=== PATIENT | male | born 1945 | race Caucasian/White ===

== ENCOUNTER 2018-07-04 14:26 | Inpatient (IN) ==
[~2018-07-04 14:26] MED LIST: *HR* Etomidate 20 MG/10 ML AMPUL IVP ONE; *HR* Rocuronium Bromide 100 MG/10 ML VIAL IVC ONE
[2018-07-04] MEDS ORDERED: 0.9 % Sodium Chloride 1,000 ML IVC ONE (14:31)
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
[2018-07-04 15:06] LABS: Basophils % 0.3 %; Eosinophils # 0.1 K/mcL (0.0-0.6); Eosinophils % 0.9 %; Hematocrit 44.5 % (37.5-50.1); Hemoglobin 13.5 g/dL (12.9-16.9); Immature Granulocytes % 0.9 % (0-4); Lymphocytes # 5.8 K/mcL (0.6-4.6); Lymphocytes % 50.8 %; Mean Corpuscular HGB Conc 30.3 g/dL (31.6-35.5); Mean Corpuscular Hemoglobin 28.2 pg (28.0-33.3); Mean Corpuscular Volume 93.1 fL (83.0-100.0); Mean Platelet Volume 9.9 fL (9.4-12.4); Monocytes # 0.9 K/mcL (0.0-1.3); Monocytes % 7.7 %; Neutrophils # 4.5 K/mcL (1.6-8.9); Nucleated Red Blood Cells 0.2 /100 WBC (0); Platelet Count 280 K/mcL (140-400); Red Blood Count 4.78 M/mcL (4.19-5.50); Red Cell Distribution Width 15.1 % (11.5-14.5); Segmented Neutrophils % 39.4 %
[2018-07-04 15:14] LABS: INR 1.1; Prothrombin Time 12.7 Seconds (9.4-12.1)
[2018-07-04 15:16] LABS: Activated Partial Thrombo Time 35.9 Seconds (26.0-36.0)
[2018-07-04] MEDS ORDERED: Isovue-370 500 ML INFUS..BTL IV ONE (15:23)
[2018-07-04 15:28] LABS: Acetaminophen < 10 mcg/mL (10-20); Alanine Aminotransferase 22 Units/L (7-52); Albumin 4.3 g/dL (3.5-5.7); Albumin/Globulin Ratio 1.6 (1.1-2.2); Alkaline Phosphatase 124 Units/L (34-104); Aspartate Amino Transferase 26 Units/L (13-39); BUN/Creatinine Ratio 15 (6-26); Bilirubin,Direct 0.1 mg/dL (0.0-0.2); Bilirubin,Indirect 0.4 mg/dL (0.0-1.2); Bilirubin,Total 0.5 mg/dL (0.3-1.0); Blood Urea Nitrogen 17 mg/dL (8-23); Calcium 6.9 mg/dL (8.6-10.3); Carbon Dioxide 17 mEq/L (23-29); Chloride 99 mEq/L (98-107); Creatine Kinase 161 Units/L (30-223); Ethanol 11 mg/dL (Less than 10); Globulin 2.7 g/dL (2.4-3.5); Glucose 176 mg/dL (70-105); Osmolality,Calculated 300 (280-300); Potassium 3.4 mEq/L (3.5-5.1); Salicylate < 2.5 mg/dL (15.0-30.0); Sodium 142 mEq/L (136-145); Troponin I < 0.03 ng/mL (< 0.04); eGFR For Non-African Americans 57 (> 60)
[2018-07-04] MEDS ORDERED: Lactulose Oral Soln 20 GM/30 ML UDC GTUBE ONE (15:38)
[2018-07-04 15:47] LABS: ABG Base Excess -4 mEq/L (-2 to 3); ABG HCO3 22 mEq/L (21-27); ABG Oxygen Saturation 100 % (95-98); ABG PCO2 42 mmHg (35-45); ABG PH 7.32 pH Units (7.32-7.45); ABG PO2 354 mmHg (85-104); ABG TCO2 23 mEq/L (20-26)
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
[2018-07-04] MEDS ORDERED: Nitroglycerin 1,000 MCG/10 ML VIAL IV ONE (16:07)
[2018-07-04] MEDS ORDERED: ISOVUE-370 200 ML INFUS..BTL IV ONE ×2 (16:07→17:05)
[2018-07-04] MEDS ORDERED: 0.9 % Sodium Chloride 1,000 ML ONE ×2 (16:07→16:32)
[2018-07-04] MEDS ORDERED: *HR* Heparin 10,000 UNIT/10 ML VIAL ONE (16:07)
[2018-07-04] MEDS ORDERED: Heparin 1,000 UNITS/500 mL 500 ML ONE (16:07)
[2018-07-04 16:09] LABS: Thyroid Stimulating Hormone < 0.010 mcIU/mL (0.340-5.600)
--- NOTE | 2018-07-04 16:13 | Pre-Sedation Evaluation ---
Pre-sedation evaluation - Pre-sedation checklist Date of procedure: 07/04/18 Procedure: LHC Recent Vitals: Last Vital Signs Temp 0 F L 07/04/18 14:36 Pulse 110 07/04/18 15:22 Resp 18 07/04/18 15:22 BP 149/91 07/04/18 15:22 Pulse Ox 99 07/04/18 15:22 ASA Classification *see protocol: CLASS II-Mild systemic disease Cardiac Registry (Cardio Only) - Functional Capacity Functional Capacity: Unknown - Clincal Frailty Scale Clinical Frailty Scale: Very Severely Frail
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
[2018-07-04] MEDS ORDERED: *HR* Heparin 5,000 UNIT/ML VIAL IVP ONE (16:28)
[2018-07-04] MEDS ORDERED: *HR* Heparin 5,000 UNIT/ML VIAL IVP PRN ×2 (16:28)
[2018-07-04] MEDS ORDERED: Heparin 25,000 UNIT/500 ML D5W 25,000 UNIT/500 ML BAG IVC SCH (16:30)
[2018-07-04] MEDS ORDERED: *HR* Midazolam HCl 2 MG/2 ML VIAL ONE (16:46)
[2018-07-04] MEDS ORDERED: *HR* FentaNYL (PF) 100 MCG/2 ML VIAL ONE (16:47)
[2018-07-04] MEDS ORDERED: Tirofiban 12.5 MG/250ML 12.5 MG/250 ML BAG ONE (17:03)
--- NOTE | 2018-07-04 17:33 | Procedure Note ---
Date of procedure: 07/04/18 Pre-op diagnosis: unresponsive Post-op diagnosis: same Procedure: Right Femoral CVC placement: Physician: Wiliam Indication: Acute respiratory failure, unresponsiveness, and need for emergency venous access Consent: Implied as this was an emergency procedure in the ER I placed a right femoral CVC emergently on this patient as he was being resuscitated by the emergency room staff. I used an Arrows 20 cm triple-lumen catheter kit. Sterile technique was not performed as this was an emergency and we had no venous access. I used a large-bore needle and syringe with 1% lidocaine. I numbed him up quickly and then successfully aspirated and cannulated the femoral vein on the first attempt. I threaded the guidewire through the needle and then removed the needle intact. I then threaded the catheter over guidewire and then removed over the guidewire intact. All 3 ports were successfully aspirated of blood and flushed with normal saline. I sutured the catheter in place and we then used it for resuscitation. Once patient was clinically stabilized, he was transferred to ICU. I conveyed to the intensive care unit staff that this was a non-sterile line and that it should be replaced as soon as possible. Blood loss was minimal and patient tolerated procedure well. Anesthesia: local Surgeon: Andrés Swain Was there an drug safety assistant present: No Estimated blood loss (cc): 5 Specimen: none Pathology: none sent Condition: critical Disposition: ICU
[2018-07-04] MEDS ORDERED: Tirofiban 12.5 MG/250ML 12.5 MG/250 ML BAG IVC SCH ×2 (17:45→20:15)
[2018-07-04] MEDS ORDERED: 0.9 % Sodium Chloride 500 ML ONE (17:57)
[2018-07-04] MEDS ORDERED: *HR* Atropine Sulfate 1 MG/10 ML SYRINGE ONE (17:57)
--- NOTE | 2018-07-04 17:57 | Emergency Department Note ---
Disposition Clinical Impression: Unresponsive, Apnea Disposition: Admitted As Inpatient Condition: Fair General Adult HPI - General Stated complaint: Unresponsive Time Seen by Provider: 07/04/18 14:31 - Related Data Home Medications Medication Instructions Recorded Confirmed Donepezil [Aricept] 10 mg PO HS 05/23/18 05/23/18 Omeprazole [PriLOSEC] 20 mg PO DAILY 05/23/18 05/23/18 Albuterol Neb [Proventil Neb] 2.5 mg IH TID 07/04/18 07/04/18 Albuterol Sulfate [Ventolin Hfa] 2 puff IH Q6H PRN 07/04/18 07/04/18 Aspirin [Adult Aspirin] 81 mg PO DAILY 07/04/18 07/04/18 Finasteride [Proscar] 5 mg PO DAILY 07/04/18 07/04/18 Fluticasone/Vilanterol [Breo 1 puff IH DAILY 07/04/18 07/04/18 Ellipta 200-25 Mcg INH] Levothyroxine [Synthroid] 175 mcg PO DAILY 07/04/18 07/04/18 Multivit-Min/FA/Lycopen/Lutein 1 tab PO DAILY 07/04/18 07/04/18 [Centrum Silver Men Tablet] Tizanidine HCl 2 mg PO TID 07/04/18 07/04/18 Previous Rx's Medication Instructions Recorded LevETIRAcetam [Keppra] 1,000 mg PO BID #60 tablet 05/24/18 Atorvastatin [Lipitor] 40 mg PO HS #30 tablet 07/10/18 Clindamycin [Cleocin] 450 mg PO TIDWM #3 capsule 07/10/18 Clopidogrel [Plavix] 75 mg PO DAILY #30 tablet 07/10/18 Lisinopril [Zestril] 2.5 mg PO DAILY #15 tablet 07/10/18 Metoprolol XL (24 HR) Succ [Toprol 12.5 mg PO DAILY #30 tab.er.24h 07/10/18 Xl] Allergies Allergy/AdvReac Type Severity Reaction Status Date / Time Penicillins [PCN] Allergy Gastrointestinal Verified 07/05/18 09:40 Upset Course Vital Signs Temperature 0 F L 07/04/18 14:36 Pulse Rate 109 07/04/18 14:36 Respiratory Rate 14 07/04/18 14:36 Blood Pressure 112/72 07/04/18 14:36 O2 Sat by Pulse Oximetry 99 07/04/18 14:36 Temperature 98.4 F 07/10/18 16:50 Pulse Rate 54 07/10/18 16:50 Respiratory Rate 15 07/10/18 16:50 Blood Pressure 128/68 07/10/18 16:50 O2 Sat by Pulse Oximetry 98 07/10/18 16:50 Oxygen Delivery Oxygen Delivery Ventilator Medical Decision Making - Lab Data Result diagrams: 07/10/18 03:42 07/10/18 03:42 Lab Results 07/04/18 07/04/18 07/04/18 Range/Units 14:31 14:31 14:34 WBC (4.3-11.1) K/mcL RBC (4.19-5.50) M/mcL Hgb (12.9-16.9) g/dL Hct (37.5-50.1) % MCV (83.0-100.0) fL MCH (28.0-33.3) pg MCHC (31.6-35.5) g/dL RDW (11.5-14.5) % Plt Count (140-400) K/mcL MPV (9.4-12.4) fL Immature Gran % (0-4) % Seg Neutrophils % % Lymphocytes % % Monocytes % % Eosinophils % % Basophils % % Neutrophils # (1.6-8.9) K/mcL Lymphocytes # (0.6-4.6) K/mcL Monocytes # (0.0-1.3) K/mcL Eosinophils # (0.0-0.6) K/mcL Basophils # (0.0-0.2) K/mcL Nucleated RBCs/100 WBC (0) /100 WBC PT 12.7 H (9.4-12.1) Seconds INR 1.1 APTT 35.9 (26.0-36.0) Seconds ABG pH (7.32-7.45) pH Units ABG pCO2 (35-45) mmHg ABG pO2 (85-104) mmHg ABG HCO3 (21-27) mEq/L ABG Total CO2 (20-26) mEq/L ABG O2 Saturation (95-98) % ABG Base Excess (-2 to 3) mEq/L Carboxyhemoglobin 5.0 (0-5) % Sodium (136-145) mEq/L Potassium (3.5-5.1) mEq/L Chloride (98-107) mEq/L Carbon Dioxide (23-29) mEq/L BUN (8-23) mg/dL Creatinine (0.70-1.30) mg/dL Est GFR ( Amer) (> 60) Est GFR (Non-Af Amer) (> 60) BUN/Creatinine Ratio (6-26) Glucose (70-105) mg/dL Calculated Osmolality (280-300) Calcium (8.6-10.3) mg/dL Total Bilirubin (0.3-1.0) mg/dL Direct Bilirubin (0.0-0.2) mg/dL Indirect Bilirubin (0.0-1.2) mg/dL AST (13-39) Units/L ALT (7-52) Units/L Alkaline Phosphatase (34-104) Units/L Ammonia (16-53) mcmol/L Creatine Kinase (30-223) Units/L Troponin I (< 0.04) ng/mL Serum Total Protein (6.4-8.9) g/dL Albumin (3.5-5.7) g/dL Globulin (2.4-3.5) g/dL Albumin/Globulin Ratio (1.1-2.2) TSH (0.340-5.600) mcIU/mL Salicylates (15.0-30.0) mg/dL Urine Opiates Screen Negative (Vjbizu=401) ng/mL Acetaminophen (10-20) mcg/mL Ur Barbiturates Screen Negative (Ggtbiu=719) ng/mL Ur Phencyclidine Scrn Negative (Cutoff=25) ng/mL Ur Amphetamines Screen Negative (Xebxby=0632) ng/mL U Benzodiazepines Scrn Positive H (Wkjfin=155) ng/mL Urine Cocaine Screen Negative (Cutoff= 300) ng/mL U Marijuana (THC) Screen Negative (Cutoff = 50) ng/mL Ur Drug Screen Interp See Below Ethyl Alcohol (Less than 10) mg/dL 07/04/18 07/04/18 07/04/18 Range/Units 14:34 14:34 14:39 WBC 11.5 H (4.3-11.1) K/mcL RBC 4.78 (4.19-5.50) M/mcL Hgb 13.5 (12.9-16.9) g/dL Hct 44.5 (37.5-50.1) % MCV 93.1 (83.0-100.0) fL MCH 28.2 (28.0-33.3) pg MCHC 30.3 L (31.6-35.5) g/dL RDW 15.1 H (11.5-14.5) % Plt Count 280 (140-400) K/mcL MPV 9.9 (9.4-12.4) fL Immature Gran % 0.9 (0-4) % Seg Neutrophils % 39.4 % Lymphocytes % 50.8 % Monocytes % 7.7 % Eosinophils % 0.9 % Basophils % 0.3 % Neutrophils # 4.5 (1.6-8.9) K/mcL Lymphocytes # 5.8 H (0.6-4.6) K/mcL Monocytes # 0.9 (0.0-1.3) K/mcL Eosinophils # 0.1 (0.0-0.6) K/mcL Basophils # 0.0 (0.0-0.2) K/mcL Nucleated RBCs/100 WBC 0.2 H (0) /100 WBC PT (9.4-12.1) Seconds INR APTT (26.0-36.0) Seconds ABG pH (7.32-7.45) pH Units ABG pCO2 (35-45) mmHg ABG pO2 (85-104) mmHg ABG HCO3 (21-27) mEq/L ABG Total CO2 (20-26) mEq/L ABG O2 Saturation (95-98) % ABG Base Excess (-2 to 3) mEq/L Carboxyhemoglobin (0-5) % Sodium 142 (136-145) mEq/L Potassium 3.4 L (3.5-5.1) mEq/L Chloride 99 (98-107) mEq/L Carbon Dioxide 17 L (23-29) mEq/L BUN 17 (8-23) mg/dL Creatinine 1.15 (0.70-1.30) mg/dL Est GFR ( Amer) > 60 (> 60) Est GFR (Non-Af Amer) 57 L (> 60) BUN/Creatinine Ratio 15 (6-26) Glucose 176 H (70-105) mg/dL Calculated Osmolality 300 (280-300) Calcium 6.9 L (8.6-10.3) mg/dL Total Bilirubin 0.5 (0.3-1.0) mg/dL Direct Bilirubin 0.1 (0.0-0.2) mg/dL Indirect Bilirubin 0.4 (0.0-1.2) mg/dL AST 26 (13-39) Units/L ALT 22 (7-52) Units/L Alkaline Phosphatase 124 H (34-104) Units/L Ammonia 290 H (16-53) mcmol/L Creatine Kinase 161 (30-223) Units/L Troponin I < 0.03 (< 0.04) ng/mL Serum Total Protein 7.0 (6.4-8.9) g/dL Albumin 4.3 (3.5-5.7) g/dL Globulin 2.7 (2.4-3.5) g/dL Albumin/Globulin Ratio 1.6 (1.1-2.2) TSH < 0.010 L (0.340-5.600) mcIU/mL Salicylates < 2.5 L (15.0-30.0) mg/dL Urine Opiates Screen (Nhotpu=176) ng/mL Acetaminophen < 10 L (10-20) mcg/mL Ur Barbiturates Screen (Tzwemo=947) ng/mL Ur Phencyclidine Scrn (Cutoff=25) ng/mL Ur Amphetamines Screen (Htkeqz=8065) ng/mL U Benzodiazepines Scrn (Izihuc=481) ng/mL Urine Cocaine Screen (Cutoff= 300) ng/mL U Marijuana (THC) Screen (Cutoff = 50) ng/mL Ur Drug Screen Interp Ethyl Alcohol 11 H (Less than 10) mg/dL 07/04/18 Range/Units 15:40 WBC (4.3-11.1) K/mcL RBC (4.19-5.50) M/mcL Hgb (12.9-16.9) g/dL Hct (37.5-50.1) % MCV (83.0-100.0) fL MCH (28.0-33.3) pg MCHC (31.6-35.5) g/dL RDW (11.5-14.5) % Plt Count (140-400) K/mcL MPV (9.4-12.4) fL Immature Gran % (0-4) % Seg Neutrophils % % Lymphocytes % % Monocytes % % Eosinophils % % Basophils % % Neutrophils # (1.6-8.9) K/mcL Lymphocytes # (0.6-4.6) K/mcL Monocytes # (0.0-1.3) K/mcL Eosinophils # (0.0-0.6) K/mcL Basophils # (0.0-0.2) K/mcL Nucleated RBCs/100 WBC (0) /100 WBC PT (9.4-12.1) Seconds INR APTT (26.0-36.0) Seconds ABG pH 7.32 (7.32-7.45) pH Units ABG pCO2 42 (35-45) mmHg ABG pO2 354 H (85-104) mmHg ABG HCO3 22 (21-27) mEq/L ABG Total CO2 23 (20-26) mEq/L ABG O2 Saturation 100 H (95-98) % ABG Base Excess -4 L (-2 to 3) mEq/L Carboxyhemoglobin (0-5) % Sodium (136-145) mEq/L Potassium (3.5-5.1) mEq/L Chloride (98-107) mEq/L Carbon Dioxide (23-29) mEq/L BUN (8-23) mg/dL Creatinine (0.70-1.30) mg/dL Est GFR ( Amer) (> 60) Est GFR (Non-Af Amer) (> 60) BUN/Creatinine Ratio (6-26) Glucose (70-105) mg/dL Calculated Osmolality (280-300) Calcium (8.6-10.3) mg/dL Total Bilirubin (0.3-1.0) mg/dL Direct Bilirubin (0.0-0.2) mg/dL Indirect Bilirubin (0.0-1.2) mg/dL AST (13-39) Units/L ALT (7-52) Units/L Alkaline Phosphatase (34-104) Units/L Ammonia (16-53) mcmol/L Creatine Kinase (30-223) Units/L Troponin I (< 0.04) ng/mL Serum Total Protein (6.4-8.9) g/dL Albumin (3.5-5.7) g/dL Globulin (2.4-3.5) g/dL Albumin/Globulin Ratio (1.1-2.2) TSH (0.340-5.600) mcIU/mL Salicylates (15.0-30.0) mg/dL Urine Opiates Screen (Jozoqt=267) ng/mL Acetaminophen (10-20) mcg/mL Ur Barbiturates Screen (Shnsur=261) ng/mL Ur Phencyclidine Scrn (Cutoff=25) ng/mL Ur Amphetamines Screen (Ybywxe=2742) ng/mL U Benzodiazepines Scrn (Vmxozq=673) ng/mL Urine Cocaine Screen (Cutoff= 300) ng/mL U Marijuana (THC) Screen (Cutoff = 50) ng/mL Ur Drug Screen Interp Ethyl Alcohol (Less than 10) mg/dL Attestation Statement - Attestation Attestation: I examined this patient and my medical decision-making was reviewed with the Resident Physician. I agree with the documented findings, disposition and treatment plan as described except to the extent set forth below. Findings consistent with acute respiratory failure accompanied with altered mental status as well as encephalopathy. Patient did require emergent intubation on arrival for respiratory failure. An emergent femoral line was placed in the right groin. The patient was hypertensive, sedated with propofol. He was found have significant ST segment depressions on EKG and ultimately interventional cardiology was notified. It does not appear that he is having a STEMI at this time however given the altered mental status, acute onset of collapse, EKG changes we will proceed with cardiac catheterization. The patient will undergo CT scan of the chest rule out pulmonary embolism. He is sedated, hemodynamically stable at the time of transfer to the intensive care unit. I spent greater than 35 minutes of critical care time resuscitating this acutely ill patient suffering from respiratory failure this was excluding billable procedures.
--- NOTE | 2018-07-04 18:19 | Invasive Diagnostic Lab Proc ---
Name: Marvin David Date of Study: 07/04/2018 Date: 1945 Ht: 66.1in Medical Record#: [id number] Age: 73 Wt: 110.23lb Gender: Male BSA: 1.56 Order #: [id number] BMI: 17.72 Physicians Procedure Physician: Lolis Brooks MD Referring MD: Referring MD: Staff Name Position Time In Ghislaine Colunga RN Monitor 04:20 PM Amy Wakefield RT (R) Scrub 04:35 PM Tisha Cohen RN Director Process 04:35 PM Shruthi Nicholas RN Director Process 04:35 PM Indications Indication Unstable Angina Procedures Performed Procedure L HRT ARTERY/VENTRICLE ANGIO Pre-Procedure Checklist Informed consent is complete signed and on chart. H&P is on chart. ID band is on and ID verified with patient. Patient NPO for procedure The procedure was described for the patient and questions were answered. Blood Pressure: 147/103 ECG is on chart. Rhythm: Sr w/ st depression Plan of Care Patient will tolerate the procedure without complications. Adequate level of comfort will be maintained. Hemodynamics will remain stable Patient will recover from procedure without complications. Respiratory function will be maintained. Cardiac rhythm will remain stable. Patient temperature will be maintained. Patient and/or family have verbalized understanding of the procedure. Patient Education Chief Complaint/Reason for Test: Cardiac Cath Developmental Category: Geriatric (65+ years) Developmentally Appropriate for Age: No Learning Barriers: Sedated Education Needs: Procedure Education Method: Verbal Information Taught: Cardiac Cath Educational Evaluation: Not ready to learn Note: pt intubated Intravenous Access Time IV Size Location DC'd Fluid/Drip Rate Units RN 04:21 PM Central Line Rt Femoral 0.9NaCl 25 ml/hr Ghislaine Colunga RN Allergies PCN (VOMMITTING, RASH) Penicillin PCN Penicillins Vital Signs Time BP (mmHg) HR (bpm) O2 Sat. RR (bpm) LOC 04:29 PM / % 2 = Responds to voice 04:30 PM / % 2 = Responds to voice 04:45 PM / % 4 = Oriented but drowsy 05:00 PM / % 4 = Oriented but drowsy 04:27 PM 147 / 103 98 % 19 04:32 PM 125 / 64 69 99 % 14 04:37 PM 132 / 73 58 99 % 15 04:42 PM 135 / 74 67 99 % 16 04:47 PM 121 / 67 59 98 % 13 04:51 PM 92 / 45 60 99 % 16 04:53 PM 110 / 58 59 100 % 16 04:57 PM 113 / 66 67 100 % 16 05:02 PM 125 / 62 61 100 % 15 05:07 PM 131 / 73 60 100 % 15 05:12 PM 131 / 76 68 100 % 15 05:17 PM 125 / 63 62 100 % 15 05:22 PM 130 / 76 48 100 % 15 05:27 PM 132 / 77 57 100 % 16 05:34 PM 133 / 77 80 99 % 14 05:37 PM 103 / 67 67 100 % 19 Procedural Medications Time Medication Dose Units Method Given By 04:29 PM Oxygen L/min mechanical ventilator Respiratory 04:31 PM Propofol 20 mcg/kg/min Intravenous 04:45 PM Versed 1 mg Intravenous Tisha Cohen RN 04:45 PM Fentanyl 50 mcg Intravenous Tisha Cohen RN 04:50 PM Lidocaine 2% 10 ml Subcutaneous Lolis Brooks MD 05:02 PM Heparin 3000 units Intravenous Tisha Cohen RN 05:15 PM Nitroglycerin 25 mcg Intracoronary Hollie Brooks MD 05:24 PM Nitroglycerin 100 mcg Intracoronary Hollie Brooks MD 05:33 PM Versed 1 mg Intravenous Tisha Cohen RN 05:33 PM Fentanyl 50 mcg Intravenous Tisha Cohen RN 05:35 PM Plavix 600 mg Orally Tisha Cohen RN 05:00 PM Aggrastat Bolus: 25 ml Intravenous Tisha Cohen RN 05:47 PM Aggrastat 12.5mg/250ml 9 ml/hr Intravenous Tisha Cohen RN ASA Classification: CLASS II- Mild systemic disease (i.e. well-controlled diabetes, hypertension, asthma, cigarette smoking) Keith Score Preprocedure Postprocedure Activity 2- Moves 4 extremities sustained head lift Activity 2- Moves 4 extremities sustained head lift Circulation 2- SBP +/= 20 points of pre-anesthetic level Circulation 2- SBP +/= 20 points of pre-anesthetic level Consciousness 1- Responds to verbal stimuli drowsy Consciousness 1- Responds to verbal stimuli drowsy O2 Saturation 1- Needs O2 inhalation to maintain O2 saturation of 90% O2 Saturation 1- Needs O2 inhalation to maintain O2 saturation of 90% Respiratory 1- Labored or limited respiration requires airway Respiratory 1- Labored or limited respiration requires airway Total Score 7 Total Score 7 Contrast Agent: Isovue Diagnostic Contrast: 118 ml Total Contrast: 118 ml Fluoro Dose: 5374 mGy Procedure Log Time Note Enter By 04:20 PM Pt arrived to label maker 2 at 16:20 [email or web address] 04:20 PM Ghislaine Colunga RN Position: Monitor Time in: 16:20 [email or web address] 04:20 PM Patient charges- Angio tray pack, Navilyst 3mm J, Pulse Oximetry and ACIST tubing and transducer [email or web address] 04:20 PM Case Delayed no, inpatient [email or web address] 04:27 PM Vitals capture started with the following parameters, Patient=Adult, Interval=5 min, Initial Yhkadrss=833 mmHg, Deflation Rate=5 mmHg, Cuff placed on Right Arm 04:27 PM Recorded ECG: KR=340 Condition=Condition 1 04:27 PM HR=98 bpm, INWB=052/103 mmhg, Resp=19 B/min 04:29 PM Physician arrived 16:29 [email or web address] 04:29 PM Meet and gremain completed [email or web address] 04:29 PM Sign in performed according to hospital policy. [email or web address] 04:29 PM Procedure start 16:29 [email or web address] 04:29 PM Time: 16:29 Oxygen on at L/min per mechanical ventilator by Walter kaplan Respiratory [email or web address] 04:29 PM Time: 16:29 Patient comfortable and pain free: Yes [email or web address] 04:30 PM Time: 16:29LOC: 2 = Responds to voice [email or web address] 04:31 PM patient's heart rate dropped from 100 to 38, hr did return to 60s on its own scoates 04:31 PM Recorded Pressure: HR=65, Condition=Condition 1 04:31 PM Recorded Pressure: HR=58, Condition=Condition 1 04:31 PM Recorded Pressure: HR=53, Condition=Condition 1 04:31 PM Recorded Pressure: HR=39, Condition=Condition 1 04:31 PM Patient arrived at 16:31 with Propofol Intravenous drip @ 20 mcg/kg/min [email or web address] 04:32 PM HR=69 bpm, TVNQ=689/64 mmhg, SpO2=99.0 %, Resp=14 B/min 04:33 PM Recorded ECG: HR=58 Condition=Condition 1 04:34 PM Clinical Presentation: Unstable angina [email or web address] 04:35 PM Sites, Amy RT (R) Position: Scrub Time in: 16:35 [email or web address] 04:35 PM Tisha Cohen RN Position: Director Process Time in: 16:35 [email or web address] 04:35 PM Shruthi Nicholas RN Position: Director Process Time in: 16:35 [email or web address] 04:37 PM HR=58 bpm, VIBM=955/73 mmhg, SpO2=99.0 %, Resp=15 B/min 04:39 PM Hair removed from procedure site in procedure lab using clippers. Bilateral groin prepped with Chloraprep by Shruthi Nicholas RN, then patient was draped. Skin intact. scoates 04:42 PM HR=67 bpm, WKIY=944/74 mmhg, SpO2=99.0 %, Resp=16 B/min 04:44 PM Pressure channel 1 zeroed. 04:44 PM Time: 16:29 Patient comfortable and pain free: Yes scoates 04:45 PM Time: 16:30LOC: 2 = Responds to voice scoates 04:45 PM Time out performed according to hospital policy scoates 04:45 PM Time: 16:45 Versed 1 mg Intravenous Given by Tisha Cohen RN scoates 04:45 PM Time: 16:45 Fentanyl 50 mcg Intravenous Given by Tisha Cohen RN scoates 04:47 PM HR=59 bpm, HABB=081/67 mmhg, SpO2=98.0 %, Resp=13 B/min, Comment=sr w/ st depression 04:50 PM Time: 16:50 10 ml Lidocaine 2% to left groin Subcutaneous Given by Lolis Brooks MD scoates 04:50 PM Micro-Introducer Kit utilized for sheath placement scoates 04:51 PM Access obtained by percutaneous puncture. 5Fr 11cm Cordis Mariposa sheath placed in left Femoral artery. [id number] scoates 04:51 PM Recorded Pressure: Ao, HR=39, Condition=Condition 1 (Aorta) Ao 84/43/59 04:51 PM NIBP STAT measurement started. 04:51 PM HR=60 bpm, NIBP=92/45 mmhg, SpO2=99.0 %, Resp=16 B/min 04:52 PM 5Fr FL 4 catheter inserted over the wire [facility] scoates 04:53 PM LCA angiography performed in multiple views. scoates 04:53 PM Catheter removed scoates 04:53 PM 5Fr FR 4 catheter inserted over the wire DNC scoates 04:53 PM HR=59 bpm, BEYF=973/58 mmhg, FqY8=689.0 %, Resp=16 B/min 04:53 PM RCA angiography performed in multiple views. scoates 04:54 PM Catheter removed scoates 04:54 PM 5Fr Pigtail catheter inserted over the wire DNC scoates 04:55 PM Pressure channel 1 zeroed. 04:55 PM Recorded Pressure: LV, HR=68, Condition=Condition 1 (Left Ventricle) LV 102/2/11 04:56 PM Recorded Pressure: LV, Ao, HR=66, Condition=Condition 1 (Left Ventricle) LV 88/14/17, (Aorta) Ao 96/61/77 04:57 PM HR=67 bpm, OTBZ=627/66 mmhg, UuR5=952.0 %, Resp=16 B/min, Comment=sr w/ st depression 04:58 PM Catheter selectively placed in left ventricle scoates 04:59 PM Bolus angiogram of right Ventricle complete: 10 ml/sec for a total of 20 mls scoates 05:00 PM Time: 16:44 Patient comfortable and pain free: Yes scoates 05:00 PM Time: 17:00 Aggrastat Bolus: 25 ml Intravenous Given by Tisha Cohen RN Beth pump scoates 05:00 PM Catheter removed scoates 05:00 PM Time: 17:47 Aggrastat 12.5mg/250ml 9 ml/hr Intravenous Given by Tisha Cohen RN Beth pump scoates 05:00 PM Time: 16:45LOC: 4 = Oriented but drowsy scoates 05:[address] surgery consulted, waiting for his return call. scoates 05:02 PM HR=61 bpm, MUVO=221/62 mmhg, BlU2=903.0 %, Resp=15 B/min, Comment=sr w/ st depression 05:03 PM Time: 17:02 Heparin 3000 units Intravenous Given by Tisha Cohen RN scoates 05:03 PM Coronary Dominance: right scoates 05:03 PM Lesion found in Distal RCA. Pre Stenosis: 99 Pre MANISH Flow: 3: complete and brisk scoates 05:04 PM Lesion found in Right PDA. Pre Stenosis: 99 Pre MANISH Flow: 3: Complete and Brisk Flow/Perfusion scoates 05:04 PM PCI Status Urgent scoates 05:05 PM 6Fr JR 4 [place] Bright-Tip guide catheter was used to cannulate the PCI vessel successfully. reused? No scoates 05:05 PM .014 [employer] [place] 190cm guide wire across target lesion- successful. reused? No scoates 05:06 PM Called [facility] for Dr. Frye. scoates 05:07 PM HR=60 bpm, JNGI=345/73 mmhg, ArB4=405.0 %, Resp=15 B/min, Comment=sr w/ st depression 05:07 PM Inflation device was opened. scoates 05:08 PM 2.0 mm x 12 mm Emerge Monorail balloon across target lesion- successful. reused? No scoates 05:08 PM Recorded Pressure: Ao, HR=59, Condition=Condition 1 (Aorta) Ao 114/53/79 05:10 PM Balloon inflated @ 6 dorothy for 3 seconds scoates 05:11 PM Balloon inflated @ 6 dorothy for 10 seconds scoates 05:11 PM Balloon inflated @ 10 dorothy for 14 seconds scoates 05:12 PM Balloon inflated @ 10 dorothy for 13 seconds scoates 05:12 PM HR=68 bpm, VREF=386/76 mmhg, DdK4=521.0 %, Resp=15 B/min 05:13 PM Balloon inflated @ 12 dorothy for 17 seconds scoates 05:14 PM Balloon catheter removed intact. scoates 05:15 PM Time: 17:00 Patient comfortable and pain free: Yes scoates 05:15 PM Time: 17:00LOC: 4 = Oriented but drowsy scoates 05:15 PM Time: 17:15 Nitroglycerin 25 mcg Intracoronary Given by Hollie Brooks MD scoates 05:17 PM HR=62 bpm, PZDR=441/63 mmhg, RaR2=098.0 %, Resp=15 B/min, Comment=sr w/ st depression 05:21 PM 2.25mm x 12mm Synergy drug-eluting stent across target lesion- successful Lot #[id number] scoates 05:21 PM Stent deployed @ 9 dorothy for 10 seconds scoates 05:22 PM HR=48 bpm, GWBV=401/76 mmhg, MnP9=349.0 %, Resp=15 B/min, Comment=sr w/ st depression 05:23 PM Stent balloon reinflated @ 14 dorothy for 10 seconds scoates 05:23 PM Stent delivery system removed intact. scoates 05:23 PM 2.5mm x 16mm Synergy drug-eluting stent across target lesion- successful Lot #[id number] scoates 05:23 PM Stent deployed @ 11 dorothy for 11 seconds scoates 05:23 PM Stent balloon reinflated @ 16 dorothy for 8 seconds scoates 05:24 PM Recorded Pressure: Ao, HR=64, Condition=Condition 1 (Aorta) Ao 115/63/85 05:24 PM Stent delivery system removed intact. scoates 05:24 PM Time: 17:24 Nitroglycerin 100 mcg Intracoronary Given by Hollie Brooks MD scoates 05:25 PM Recorded Pressure: Ao, HR=53, Condition=Condition 1 (Aorta) Ao 97/51/70 05:27 PM HR=57 bpm, HMVR=069/77 mmhg, MrZ8=214.0 %, Resp=16 B/min, Comment=sr w/ st depression 05:29 PM Guide wire removed intact. scoates 05:29 PM Guide catheter removed intact. scoates 05:30 PM Time: 17:15 Patient comfortable and pain free: Yes scoates 05:30 PM sheath sutured in scoates 05:33 PM Time: 17:33 Versed 1 mg Intravenous Given by Tisha Cohen RN scoates 05:33 PM Time: 17:33 Fentanyl 50 mcg Intravenous Given by Tisha Cohen RN scoates 05:34 PM HR=80 bpm, YMYU=196/77 mmhg, SpO2=99.0 %, Resp=14 B/min, Comment=sr w/ st depression 05:36 PM Time: 17:35 Plavix 600 mg Orally Given by Tisha Cohen RN - crushed scoates 05:36 PM Procedure completed at 17:36 07/04/2018 scoates 05:37 PM Did you address MANISH flow and Dominance? Yes scoates 05:37 PM Coronary Dominance: right scoates 05:37 PM HR=67 bpm, HIEF=218/67 mmhg, SdF0=259 %, Resp=19 B/min 05:39 PM Sign out completed: Radiation Dose 615 mGy, 5374 cGy/cm2 Fluoro Time: 8.5 Isovue 370 - 200ml contrast 118 ml given by Lolis Brooks MD. Complications: NoneCardiac Rehab Consult needed: YesConfirmed administered medications: Yes scoates 05:40 PM Sheath left in place to be pulled on floor/holding area scoates 05:40 PM Estimated Blood Loss: less than 20cc scoates 05:40 PM Post ECG Sinus rhythm with st depression scoates 05:40 PM Post Blood Pressure 103/67 scoates 05:41 PM 17:41 Post Pulses Bilateral DP & PT 2+ scoates 05:41 PM Information taught Cardiac Cath and PCI scoates 05:41 PM Education needs Procedure, Plan of Care, and Responsibilities of Patient in Care scoates 05:41 PM Learning barriers :Sedated scoates 05:41 PM Education Methods Verbal scoates 05:42 PM Education evaluation Not ready to learn scoates 05:42 PM Site status No bleeding/hematoma - Rt Groin as reported by Sites, Amy RT (R) at 17:42 scoates 05:45 PM Time: 17:30 Patient comfortable and pain free: Yes scoates 05:51 PM Opsite applied scoates 05:51 PM Report given to Rosi RN Pt taken to ICU Room #10. 17:51 scoates 05:51 PM Plavix, Effient or Brilinta given Yes scoates 05:51 PM Delay to floor No scoates 05:51 PM Patient out of room: 17:51 scoates 05:51 PM physician spoke with patient in the waiting room scoates 05:52 PM Complications: None scoates 05:52 PM Lesion found in Distal LMCA. Pre Stenosis: 60 Pre MANISH Flow: scoates 05:52 PM Lesion found in Proximal LAD. Pre Stenosis: 80 Pre MANISH Flow: scoates 05:53 PM Lesion found in Distal LAD. Pre Stenosis: 50 Pre MANISH Flow: scoates 05:53 PM Left Main Coronary Artery with 60% stenosis scoates 05:53 PM Proximal Left Anterior Descending Coronary Artery with 80% stenosis. If graft is supplying this territory, 0 % stenosis. scoates 05:53 PM Mid/Distal Left Anterior Descending Coronary Artery and diagonal branches with 70% stenosis. If graft is supplying this area, 0 % stenosis scoates 05:53 PM Right Coronary, Right Posterior Descending Arteries with Right Posterolateral and Acute Marginal branches with 99 % stenosis. If graft is supplying this area, 0 % stenosis scoates 06:04 PM Coronary Dominance: right scoates 06:04 PM Lesion found in Proximal LAD. Pre Stenosis: 80 Pre MANISH Flow: scoates Complications Complication None None Hemodynamics Pressures Site Systolic/A Wave Diastolic/V Wave Mean AO 84 43 59 LV 102 2 11 LV 88 14 17 AO 96 61 77 AO 114 53 79 AO 115 63 85 AO 97 51 70 Post Procedure Information Blood Pressure: 103/67 mmHg Rhythm: Sr w/ st depression Post procedural instructions were given Surgery consult for CABG Closure Device Time Device Success/Fail 07/04/2018 5:52:00 PM Manual Compression- sheath to be pulled in icu Site Checks Time Location Status Staff Sheath In? Note 05:42 PM Rt Groin No bleeding/hematoma Sites, Amy RT (R) Pulses Time Site Pre-Procedure Post-Procedure Note 07/04/2018 4:26:00 PM Bilateral DP & PT 2+ 07/04/2018 4:27:00 PM Bilateral radial 2+ 5:41:00 PM Bilateral DP & PT 2+ Updated by Ama Singh, RT(R) on 07/04/2018 6:10:20 PM electronically signed on 07/04/2018 6:11:28 PM with status of Final
[2018-07-04] MEDS ORDERED: Naloxone 0.4 MG/ML INJ IVP PRN (18:20)
[2018-07-04] MEDS ORDERED: Artificial Tears SOLN 15 ML BOTTLE BOTH EYES PRN (18:20)
[2018-07-04] MEDS ORDERED: Acetaminophen 325 MG TABLET PO PRN (18:20)
[2018-07-04] MEDS ORDERED: FentaNYL (PF) 1,000 MCG in 0.9 % Sodium Chloride 80 ML IVC SCH (18:30)
[2018-07-04] MEDS ORDERED: Potassium Chloride 40 MEQ, Lidocaine 1% 2 ML in D5% in Water 500 ML IVPB ONE (18:38)
[2018-07-04] MEDS ORDERED: levETIRAcetam 1,000 MG in 0.9 % Sodium Chloride 100 ML IVPB ONE (18:43)
[2018-07-04] MEDS ORDERED: Aspirin Enteric Coated 81 MG Tablet PO SCH (18:45)
[2018-07-04] MEDS: Pantoprazole 40 MG VIAL IVP SCH (19:05)
[2018-07-04] MEDS: Artificial Tears SOLN 15 ML BOTTLE BOTH EYES SCH ×2 (19:55→23:47)
[2018-07-04] MEDS: Chlorhexidine Rinse 15 ML MOUTHWASH MM SCH (19:56)
[2018-07-04] MEDS: Lactulose Oral Soln 20 GM/30 ML UDC GTUBE SCH (19:56)
[2018-07-04] MEDS ORDERED: Lactulose Oral Soln 20 GM/30 ML UDC PO SCH (21:00)
[2018-07-04] MEDS: *HR* Heparin 5,000 UNIT/ML VIAL SQ SCH (21:00)
[2018-07-04 21:01] LABS: Bilirubin,Urine Negative (Negative); Blood,Urine Large (Negative); Clarity,Urine Cloudy (Clear); Color,Urine Red (Yellow); Glucose,Urine (UA) Normal (Normal); Ketones,Urine Negative (Negative); Leukocyte Esterase,Urine Small (Negative); Nitrite,Urine Negative (Negative); Protein,Urine Trace mg/dL (Neg-Trace); Specific Gravity,Urine > 1.030 (1.010-1.025); Urobilinogen,Urine Normal (Normal)
[2018-07-04 21:06] LABS: Squamous Epithelial Cell,Urine Few per lpf (None-Few)
[2018-07-04 21:07] LABS: Bacteria,Urine Few per hpf (None-Few); RBC,Urine TNTC per hpf (0-3)
[2018-07-04 21:26] LABS: Amphetamine Screen,Urine Negative ng/mL (Cutoff=1000); Barbiturate Screen,Urine Negative ng/mL (Cutoff=200); Benzodiazepines Screen,Urine Positive ng/mL (Cutoff=200); Cannabinoid Screen,Urine Negative ng/mL (Cutoff = 50); Cocaine Screen,Urine Negative ng/mL (Cutoff= 300); Opiate Screen,Urine Negative ng/mL (Cutoff=300); Phencyclidine Screen,Urine Negative ng/mL (Cutoff=25)
[2018-07-05] MEDS: Artificial Tears SOLN 15 ML BOTTLE BOTH EYES SCH ×5 (04:07→19:48)
[2018-07-05] MEDS: *HR* Heparin 5,000 UNIT/ML VIAL SQ SCH ×3 (04:07→22:43)
[2018-07-05 04:15] LABS: INR 1.2; Prothrombin Time 13.5 Seconds (9.4-12.1)
[2018-07-05 04:18] LABS: Activated Partial Thrombo Time 31.8 Seconds (26.0-36.0)
[2018-07-05 04:35] LABS: Alanine Aminotransferase 33 Units/L (7-52); Albumin 3.4 g/dL (3.5-5.7); Albumin/Globulin Ratio 1.5 (1.1-2.2); Alkaline Phosphatase 95 Units/L (34-104); Aspartate Amino Transferase 98 Units/L (13-39); BUN/Creatinine Ratio 16 (6-26); Bilirubin,Total 0.5 mg/dL (0.3-1.0); Blood Urea Nitrogen 12 mg/dL (8-23); Carbon Dioxide 22 mEq/L (23-29); Chloride 103 mEq/L (98-107); Globulin 2.3 g/dL (2.4-3.5); Glucose 130 mg/dL (70-105); Magnesium 1.8 mg/dL (1.6-2.6); Osmolality,Calculated 284 (280-300); Potassium 3.6 mEq/L (3.5-5.1); Sodium 136 mEq/L (136-145); Total Protein 5.7 g/dL (6.4-8.9); eGFR For Non-African Americans > 60 (> 60)
[2018-07-05 04:43] LABS: Basophils % 0.1 %; Hematocrit 34.7 % (37.5-50.1); Hemoglobin 11.2 g/dL (12.9-16.9); Immature Granulocytes % 0.4 % (0-4); Lymphocytes # 0.8 K/mcL (0.6-4.6); Lymphocytes % 6.7 %; Mean Corpuscular HGB Conc 32.3 g/dL (31.6-35.5); Mean Corpuscular Hemoglobin 27.5 pg (28.0-33.3); Mean Platelet Volume 9.3 fL (9.4-12.4); Monocytes # 1.2 K/mcL (0.0-1.3); Monocytes % 9.9 %; Neutrophils # 9.7 K/mcL (1.6-8.9); Platelet Count 202 K/mcL (140-400); Red Blood Count 4.08 M/mcL (4.19-5.50); Red Cell Distribution Width 15.2 % (11.5-14.5); Segmented Neutrophils % 82.9 %
[2018-07-05 05:12] LABS: ABG Base Excess 0 mEq/L (-2 to 3); ABG HCO3 24 mEq/L (21-27); ABG Oxygen Saturation 99 % (95-98); ABG PCO2 38 mmHg (35-45); ABG PH 7.41 pH Units (7.32-7.45); ABG PO2 138 mmHg (85-104); ABG TCO2 25 mEq/L (20-26); Blood Gas Modality PRVC; Blood Gas PEEP 5 cm H2O; Blood Gas Respiration Rate 16; Blood Gas VT 450 cc
--- NOTE | 2018-07-05 07:24 | Pulmonology Progress Note ---
<Saadlla,Haval M - Last Filed: 07/05/18 10:16> Date of Encounter: 07/05/18 Objective PUL Vital signs: Last Vital Signs Temp 100.8 F H 07/05/18 08:00 Pulse 76 07/05/18 09:00 Resp 17 07/05/18 09:39 BP 136/66 07/05/18 09:39 Pulse Ox 96 07/05/18 09:39 Ventilator Settings Ventilator Settings: Ventilator Settings, Last 8 Hours Ventilator Tidal Volume 450 Setting Ventilator Tidal Volume 450 Setting Ventilator Tidal Volume 450 Setting Ventilator Tidal Volume 450 Setting Ventilator Tidal Volume 450 Setting Ventilator Tidal Volume 450 Setting Ventilator Tidal Volume 450 Setting Ventilator Tidal Volume 450 Setting Ventilator Tidal Volume 450 Setting Ventilator Tidal Volume 450 Setting Ventilator Tidal Volume 450 Setting Ventilator Tidal Volume 450 Setting Ventilator Tidal Volume 450 Setting Ventilator Tidal Volume 450 Setting Ventilator Tidal Volume 450 Setting Ventilator Tidal Volume 450 Setting Ventilator Tidal Volume 450 Setting Ventilator Tidal Volume 450 Setting Ventilator Tidal Volume 450 Setting Ventilator Tidal Volume 450 Setting Ventilator Tidal Volume 450 Setting Ventilator Tidal Volume 450 Setting Ventilator Tidal Volume 450 Setting Ventilator Tidal Volume 450 Setting Ventilator Respiratory Rate 16 Setting Ventilator Respiratory Rate 16 Setting Ventilator Respiratory Rate 16 Setting Ventilator Respiratory Rate 16 Setting Ventilator Respiratory Rate 16 Setting Ventilator Respiratory Rate 16 Setting Ventilator Respiratory Rate 16 Setting Ventilator Respiratory Rate 16 Setting Ventilator Respiratory Rate 16 Setting Ventilator Respiratory Rate 16 Setting Ventilator Respiratory Rate 16 Setting Ventilator Respiratory Rate 16 Setting Ventilator Respiratory Rate 16 Setting Ventilator Respiratory Rate 16 Setting Ventilator Respiratory Rate 16 Setting Ventilator Respiratory Rate 16 Setting Ventilator Respiratory Rate 16 Setting Ventilator Respiratory Rate 16 Setting Ventilator Respiratory Rate 16 Setting Ventilator Respiratory Rate 16 Setting Ventilator Respiratory Rate 16 Setting Ventilator Respiratory Rate 16 Setting Ventilator Respiratory Rate 16 Setting Ventilator Respiratory Rate 16 Setting Actual Respiratory Rate 17 Actual Respiratory Rate 16 Actual Respiratory Rate 16 Actual Respiratory Rate 16 Actual Respiratory Rate 16 Actual Respiratory Rate 16 Actual Respiratory Rate 16 Actual Respiratory Rate 16 Actual Respiratory Rate 16 Actual Respiratory Rate 16 Actual Respiratory Rate 16 Actual Respiratory Rate 16 Actual Respiratory Rate 16 Actual Respiratory Rate 16 Actual Respiratory Rate 16 Actual Respiratory Rate 16 Actual Respiratory Rate 16 Actual Respiratory Rate 16 Actual Respiratory Rate 16 Actual Respiratory Rate 16 Actual Respiratory Rate 16 Actual Respiratory Rate 16 Positive End Expiratory 5 Pressure Positive End Expiratory 5 Pressure Positive End Expiratory 5 Pressure Positive End Expiratory 5 Pressure Positive End Expiratory 5 Pressure Positive End Expiratory 5 Pressure Positive End Expiratory 5 Pressure Positive End Expiratory 5 Pressure Positive End Expiratory 5 Pressure Positive End Expiratory 5 Pressure Positive End Expiratory 5 Pressure Positive End Expiratory 5 Pressure Positive End Expiratory 5 Pressure Positive End Expiratory 5 Pressure Positive End Expiratory 5 Pressure Positive End Expiratory 5 Pressure Positive End Expiratory 5 Pressure Positive End Expiratory 5 Pressure Positive End Expiratory 5 Pressure Positive End Expiratory 5 Pressure Positive End Expiratory 5 Pressure Positive End Expiratory 5 Pressure Positive End Expiratory 5 Pressure Positive End Expiratory 5 Pressure Peak Inspiratory Airway 13 Pressure Peak Inspiratory Airway 24 Pressure Peak Inspiratory Airway 21 Pressure Peak Inspiratory Airway 21 Pressure Peak Inspiratory Airway 22 Pressure Peak Inspiratory Airway 22 Pressure Peak Inspiratory Airway 22 Pressure Peak Inspiratory Airway 22 Pressure Peak Inspiratory Airway 22 Pressure Peak Inspiratory Airway 22 Pressure Peak Inspiratory Airway 22 Pressure Peak Inspiratory Airway 22 Pressure Peak Inspiratory Airway 20 Pressure Peak Inspiratory Airway 20 Pressure Peak Inspiratory Airway 22 Pressure Peak Inspiratory Airway 22 Pressure Peak Inspiratory Airway 23 Pressure Peak Inspiratory Airway 23 Pressure Peak Inspiratory Airway 22 Pressure Peak Inspiratory Airway 22 Pressure Peak Inspiratory Airway 20 Pressure Peak Inspiratory Airway 20 Pressure Results - Laboratory Findings CBC and BMP: 07/05/18 04:25 07/05/18 04:00 ABG ABG pH 7.41 pH Units (7.32-7.45) 07/05/18 05:08 ABG pCO2 38 mmHg (35-45) 07/05/18 05:08 ABG pO2 138 mmHg (85-104) H 07/05/18 05:08 ABG O2 Saturation 99 % (95-98) H 07/05/18 05:08 PT/INR, D-dimer PT 13.5 Seconds (9.4-12.1) H 07/05/18 04:00 Abnormal lab findings: Abnormal lab results WBC 11.7 K/mcL (4.3-11.1) H 07/05/18 04:25 RBC 4.08 M/mcL (4.19-5.50) L 07/05/18 04:25 Hgb 11.2 g/dL (12.9-16.9) L D 07/05/18 04:25 Hct 34.7 % (37.5-50.1) L 07/05/18 04:25 MCH 27.5 pg (28.0-33.3) L 07/05/18 04:25 RDW 15.2 % (11.5-14.5) H 07/05/18 04:25 MPV 9.3 fL (9.4-12.4) L 07/05/18 04:25 Neutrophils # 9.7 K/mcL (1.6-8.9) H 07/05/18 04:25 Nucleated RBCs/100 WBC 0.2 /100 WBC (0) H 07/04/18 14:39 PT 13.5 Seconds (9.4-12.1) H 07/05/18 04:00 ABG pO2 138 mmHg (85-104) H 07/05/18 05:08 ABG O2 Saturation 99 % (95-98) H 07/05/18 05:08 Carbon Dioxide 22 mEq/L (23-29) L 07/05/18 04:00 Glucose 130 mg/dL (70-105) H 07/05/18 04:00 POC Glucose 124 mg/dL (70-99) H 07/04/18 23:52 Calcium 6.0 mg/dL (8.6-10.3) L* 07/05/18 04:00 AST 98 Units/L (13-39) H 07/05/18 04:00 Serum Total Protein 5.7 g/dL (6.4-8.9) L 07/05/18 04:00 Albumin 3.4 g/dL (3.5-5.7) L 07/05/18 04:00 Globulin 2.3 g/dL (2.4-3.5) L 07/05/18 04:00 TSH < 0.010 mcIU/mL (0.340-5.600) L 07/04/18 14:34 Urine Color Red (Yellow) A 07/04/18 20:25 Urine Clarity Cloudy (Clear) A 07/04/18 20:25 Ur Specific [place] > 1.030 (1.010-1.025) H 07/04/18 20:25 Urine Blood Large (Negative) H 07/04/18 20:25 Ur Leukocyte Esterase Small (Negative) H 07/04/18 20:25 Urine Microscopic RBC TNTC per hpf (0-3) H 07/04/18 20:25 Urine Microscopic WBC 5-15 per hpf (0-3) H 07/04/18 20:25 Ur Culture Indicated? YES (NO) A 07/04/18 20:25 Salicylates < 2.5 mg/dL (15.0-30.0) L 07/04/18 14:34 Acetaminophen < 10 mcg/mL (10-20) L 07/04/18 14:34 U Benzodiazepines Scrn Positive ng/mL (Frzwjz=151) H 07/04/18 14:31 Ethyl Alcohol 11 mg/dL (Less than 10) H 07/04/18 14:34 - Clinical Findings Intake & Output: Intake & Output 07/04/18 07/05/18 07/05/18 23:59 07:59 15:59 Intake Total 220 / 220 312 / 312 Output Total 950 / 950 850 / 850 Balance -730 / -730 -538 / -538 Weight 56 kg 56.8 kg Consult Discharge Plan - Plan Referrals: Angel Ruggiero DO [Primary Care Provider] - - Attending Attestation I examined this patient and my medical decision-making was reviewed with the Resident Physician. I agree with the documented findings, disposition and treatment plan as described except to the extent set forth below. Patient seen and examined. Labs, radiology, chart personally reviewed. 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 Possible aspiration pneumonia. Cardiovascular: stable and discussed with Dr. Frye GI: Nutrition per dietary and GI prophylaxis per routine Heme: DVT prophylaxis per routine Renal; urine out put and renal funtion reviewed. Replace electrolytes and continue diuresis. Endorcine: blood glucose is monitored Lines: all lines checked and no evidence of infections. Take femoral line out. Skin: skin care to prevent pressure ulcers per nursing routine care <Payton Brown - Last Filed: 07/05/18 10:44> Date of Encounter: 07/05/18 Time of Encounter: 07:24 Assessment and Plan (1) Acute hepatic encephalopathy Current Visit: Yes Status: Acute Pt's initial ammonia level was 290, and head CT was negative for acute intracranial abnormality. Lactulose was started. Continue to monitor ammonia level and continue lactulose. (2) Acute respiratory failure with hypoxia Current Visit: Yes Status: Acute Pt presented to ED yesterday in acute respiratory failure and was emergently intubated and sedated. Pt has a hx of tracheostomy. Continue ventilation, bronchodilators, and close monitoring. (3) DVT prophylaxis Current Visit: Yes Status: Acute Heparin SQ TID (4) Seizure disorder Current Visit: No Status: Chronic Continue Keppra IV while intubated. Seizure precautions. (5) GERD (gastroesophageal reflux disease) Current Visit: Yes Status: Chronic Protonix 40mg IV daily Qualifiers: Esophagitis presence: esophagitis presence not specified Qualified Code(s) : K21.9 - Gastro-esophageal reflux disease without esophagitis (6) Dementia Current Visit: Yes Status: Chronic Hold home Aricept while sedated Qualifiers: Dementia type: unspecified type Dementia behavioral disturbance: without behavioral disturbance Qualified Code(s): F03.90 - Unspecified dementia without behavioral disturbance (7) BPH (benign prostatic hyperplasia) Current Visit: Yes Status: Chronic Continue home Proscar. [place] for I&O measurements while intubated. Qualifiers: Lower urinary tract symptom presence: unspecified whether lower urinary tract symptoms present Qualified Code(s): N40.0 - Benign prostatic hyperplasia without lower urinary tract symptoms (8) Unstable angina Current Visit: Yes Status: Acute Pt had 8 stents in the past, and received his 9th on 07/04/18 in the RCA with PTCA after 99% stenosis was discovered. He still has 60% left main and 80% in- stent stenosis of his LAD. He was deemed not a candidate for open heart surgery at this time, as he will need to be extubated for assessment and off Plavix for 5-7 days prior to surgery. Continue to monitor. (9) Acute on chronic respiratory failure with hypoxia Current Visit: Yes Status: Acute Pt emergently intubated upon arrival to ED. Continue ventilation. Pt has hx of tracheostomy. Continue brochodilators and close monitoring. 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 Nonspecific focal areas of ground-glass opacities in medial RUL, could be related to focal alveolitis, new compared to previous study in April 2018. Pt is followed by [facility]. (12) Severe protein-calorie malnutrition Current Visit: Yes Status: Acute BMI 18, temporal wasting, loss of muscle mass, weight loss, decreased energy intake. Nutrition consulted. Subjective Principal diagnosis: Acute on chronic respiratory failure Interval history: Pt is a 73 year old male that presented to the ED on 07/04/18 in acute respiratory failure and unresponsive, was emergently intubated. His EKG showed ST depressions consistent with ischemia and he was taken to the blood bank laboratory technologist and had a stent placed by PTCA in his RCA. No acute events overnight. CXR this morning showed mildly increased opacity in the lingular area and nursing recorded an elevated temp at 100.8 this morning which is concerning for aspiration PNA. Given his hx of hospitalization within the last 45 days, he will be started on prophylactic antibiotics to cover HAPNA/Aspiration PNA with repeat CXR in the AM. Lactulose this morning is WNL so will be continued but has been changed to once per day with repeat ammonia level in the morning. Objective PUL Vital signs: Last Vital Signs Temp 99 F 07/05/18 04:00 Pulse 64 07/05/18 06:00 Resp 16 07/05/18 07:13 BP 102/52 07/05/18 07:13 Pulse Ox 98 07/05/18 07:13 General appearance: comatose Eyes: nonicteric ENT: oropharynx dry Effort: other (intubated and sedated on AC mode) Auscultation: bilateral: clear, other (decreased in left base) Cardiovascular: regular rate and rhythm Gastrointestinal: normoactive bowel sounds, soft, non-distended, hepatomegaly Integumentary: normal Extremities: no cyanosis other (intubated and sedated, minimally responsive to stimuli) other (sedated) Ventilator Settings Ventilator Settings: Ventilator Settings, Last 8 Hours Ventilator Tidal Volume 450 Setting Ventilator Tidal Volume 450 Setting Ventilator Tidal Volume 450 Setting Ventilator Tidal Volume 450 Setting Ventilator Tidal Volume 450 Setting Ventilator Tidal Volume 450 Setting Ventilator Tidal Volume 450 Setting Ventilator Tidal Volume 450 Setting Ventilator Tidal Volume 450 Setting Ventilator Tidal Volume 450 Setting Ventilator Tidal Volume 450 Setting Ventilator Tidal Volume 450 Setting Ventilator Tidal Volume 450 Setting Ventilator Respiratory Rate 16 Setting Ventilator Respiratory Rate 16 Setting Ventilator Respiratory Rate 16 Setting Ventilator Respiratory Rate 16 Setting Ventilator Respiratory Rate 16 Setting Ventilator Respiratory Rate 16 Setting Ventilator Respiratory Rate 16 Setting Ventilator Respiratory Rate 16 Setting Ventilator Respiratory Rate 16 Setting Ventilator Respiratory Rate 16 Setting Ventilator Respiratory Rate 16 Setting Ventilator Respiratory Rate 16 Setting Ventilator Respiratory Rate 16 Setting Actual Respiratory Rate 16 Actual Respiratory Rate 16 Actual Respiratory Rate 16 Actual Respiratory Rate 16 Actual Respiratory Rate 16 Actual Respiratory Rate 16 Actual Respiratory Rate 16 Actual Respiratory Rate 16 Actual Respiratory Rate 16 Actual Respiratory Rate 16 Actual Respiratory Rate 16 Actual Respiratory Rate 16 Positive End Expiratory 5 Pressure Positive End Expiratory 5 Pressure Positive End Expiratory 5 Pressure Positive End Expiratory 5 Pressure Positive End Expiratory 5 Pressure Positive End Expiratory 5 Pressure Positive End Expiratory 5 Pressure Positive End Expiratory 5 Pressure Positive End Expiratory 5 Pressure Positive End Expiratory 5 Pressure Positive End Expiratory 5 Pressure Positive End Expiratory 5 Pressure Positive End Expiratory 5 Pressure Peak Inspiratory Airway 22 Pressure Peak Inspiratory Airway 22 Pressure Peak Inspiratory Airway 22 Pressure Peak Inspiratory Airway 20 Pressure Peak Inspiratory Airway 22 Pressure Peak Inspiratory Airway 23 Pressure Peak Inspiratory Airway 22 Pressure Peak Inspiratory Airway 20 Pressure Peak Inspiratory Airway 22 Pressure Peak Inspiratory Airway 22 Pressure Peak Inspiratory Airway 22 Pressure Peak Inspiratory Airway 22 Pressure Results - Laboratory Findings CBC and BMP: 07/05/18 04:25 07/05/18 04:00 ABG ABG pH 7.41 pH Units (7.32-7.45) 07/05/18 05:08 ABG pCO2 38 mmHg (35-45) 07/05/18 05:08 ABG pO2 138 mmHg (85-104) H 07/05/18 05:08 ABG O2 Saturation 99 % (95-98) H 07/05/18 05:08 PT/INR, D-dimer PT 13.5 Seconds (9.4-12.1) H 07/05/18 04:00 Abnormal lab findings: Abnormal lab results WBC 11.7 K/mcL (4.3-11.1) H 07/05/18 04:25 RBC 4.08 M/mcL (4.19-5.50) L 07/05/18 04:25 Hgb 11.2 g/dL (12.9-16.9) L D 07/05/18 04:25 Hct 34.7 % (37.5-50.1) L 07/05/18 04:25 MCH 27.5 pg (28.0-33.3) L 07/05/18 04:25 RDW 15.2 % (11.5-14.5) H 07/05/18 04:25 MPV 9.3 fL (9.4-12.4) L 07/05/18 04:25 Neutrophils # 9.7 K/mcL (1.6-8.9) H 07/05/18 04:25 Nucleated RBCs/100 WBC 0.2 /100 WBC (0) H 07/04/18 14:39 PT 13.5 Seconds (9.4-12.1) H 07/05/18 04:00 ABG pO2 138 mmHg (85-104) H 07/05/18 05:08 ABG O2 Saturation 99 % (95-98) H 07/05/18 05:08 Carbon Dioxide 22 mEq/L (23-29) L 07/05/18 04:00 Glucose 130 mg/dL (70-105) H 07/05/18 04:00 Calcium 6.0 mg/dL (8.6-10.3) L* 07/05/18 04:00 AST 98 Units/L (13-39) H 07/05/18 04:00 Serum Total Protein 5.7 g/dL (6.4-8.9) L 07/05/18 04:00 Albumin 3.4 g/dL (3.5-5.7) L 07/05/18 04:00 Globulin 2.3 g/dL (2.4-3.5) L 07/05/18 04:00 TSH < 0.010 mcIU/mL (0.340-5.600) L 07/04/18 14:34 Urine Color Red (Yellow) A 07/04/18 20:25 Urine Clarity Cloudy (Clear) A 07/04/18 20:25 Ur Specific [place] > 1.030 (1.010-1.025) H 07/04/18 20:25 Urine Blood Large (Negative) H 07/04/18 20:25 Ur Leukocyte Esterase Small (Negative) H 07/04/18 20:25 Urine Microscopic RBC TNTC per hpf (0-3) H 07/04/18 20:25 Urine Microscopic WBC 5-15 per hpf (0-3) H 07/04/18 20:25 Ur Culture Indicated? YES (NO) A 07/04/18 20:25 Salicylates < 2.5 mg/dL (15.0-30.0) L 07/04/18 14:34 Acetaminophen < 10 mcg/mL (10-20) L 07/04/18 14:34 U Benzodiazepines Scrn Positive ng/mL (Zfhdwb=209) H 07/04/18 14:31 Ethyl Alcohol 11 mg/dL (Less than 10) H 07/04/18 14:34 - Diagnostic Findings Chest x-ray: report reviewed, image reviewed - Clinical Findings Intake & Output: Intake & Output 07/04/18 07/04/1807/05/18 15:59 23:59 07:59 Intake Total 110 / 110 156 / 156 Output Total 475 / 475 400 / 400 Balance -365 / -365 -244 / -244 Weight 56 kg 56.8 kg
--- NOTE | 2018-07-05 07:46 | Cardiothoracic Consult Note ---
Date of Encounter: 07/05/18 Time of Encounter: 07:44 Assessment and Plan (1) Unstable angina Current Visit: Yes Status: Acute The assessment and plan as outlined above was discussed with the patient and/or family members who expressed understanding and agreement. All questions were answered. The patient has a 60% left main lesion and an 80% in-stent stenosis of his LAD. His right coronary artery had a 99% stenosis, but this was opened with PTCA with a good result. At this point, the patient is not a candidate for open heart surgery. He will need to be extubated and we can reassess. He would need to be off Plavix for 5-7 days prior to open heart surgery. - History of Present Illness History of present illness: Mr. David is a 73 year old male The patient is intubated and sedated and unable to answer questions. He does have a history of seizures, hypertension and hyperlipidemia. He has had a PTCA and stent placement in the past. He was admitted with acute respiratory arrest. He also has a history of encephalopathy and dementia. He does have stage IV T-cell lymphoma and is seen by oncology. He is undergoing chemotherapy and radiation therapy. Cardiac catheterization done yesterday revealed a 99% right coronary artery lesion. This was opened with PTCA and stent with good result. The patient also had a 60% left main lesion. He also had an 80% in-stent stenosis of his LAD. His circumflex coronary artery was okay. Past Med Surg Social Fam HX - Past Medical History Medical history: cancer (Large B-cell lymphoma), CVA (Subdural hemorrhage) - Past Surgical History Surgical History: other (Craniotomy, HEART STENTS X 8, ENLARGED PROSTATE, BRAIN SURGERY IN 2006 TO REMOVE BLOOD CLOT, SURGERY ON STOMACH D/T BLEEDING STOMACH ULCERS) - Social History Smoking Status: Former smoker Alcohol use: none Drug use: none - Family History Mother Living Status: Hx Family Cardiac Disorders: Yes Father Living Status: Hx Family Cardiac Disorders: Yes Medications and Allergies Albuterol Neb [Proventil Neb] 2.5 mg IH TID 07/04/18 [History] Albuterol Sulfate [Ventolin Hfa] 2 puff IH Q6H PRN 07/04/18 [History] Aspirin [Adult Aspirin] 81 mg PO DAILY 07/04/18 [History] Donepezil HCl [Aricept] 10 mg PO DAILY 07/04/18 [History] Finasteride [Proscar] 5 mg PO DAILY 07/04/18 [History] Fluticasone/Vilanterol [Breo Ellipta 200-25 Mcg INH] 1 puff IH DAILY 07/04/18 [ History] LevETIRAcetam [Keppra] 1,000 mg PO BID 07/04/18 [History] Levothyroxine [Synthroid] 175 mcg PO DAILY 07/04/18 [History] Multivit-Min/FA/Lycopen/Lutein [Centrum Silver Men Tablet] 1 tab PO DAILY [History] Omeprazole [PriLOSEC] 20 mg PO DAILY 07/04/18 [History] Tizanidine HCl 2 mg PO TID 07/04/18 [History] 3 Allergy/AdvReac Type Severity Reaction Status Date / Time Penicillins AdvReac upset Verified 07/04/18 16:08 stomach All Systems Review: The remainder of the systems were reviewed and are negative Physical Examination Vital Signs, Last 4 Hours Temp Pulse Resp BP Pulse Ox 07/05/18 07:28 99.2 F 07/05/18 07:13 16 102/52 98 07/05/18 07:00 69 16 118/64 99 07/05/18 06:00 64 16 110/58 96 07/05/18 05:42 16 116/60 96 07/05/18 05:00 63 16 107/57 97 07/05/18 04:00 99 F 69 16 112/59 98 The patient is intubated and sedated. He has a healed tracheostomy scar above his sternum. Lungs are clear to percussion and auscultation. Heart is in a regular rate and rhythm. No murmurs, gallops or rubs. Abdomen is benign. No tenderness, rebound or guarding. He has bilateral femoral lines. Extremities without edema. He does have cachexia and muscle wasting. I am unable to assess the neurological exam. Results 07/05/18 04:25 07/05/18 04:00 Lab Results, Last 24 hours 07/05/18 07/05/18 07/05/18 04:00 04:00 04:25 WBC 11.7 H Hgb 11.2 L D Hct 34.7 L Plt Count 202 INR 1.2 APTT 31.8 Sodium 136 Potassium 3.6 Chloride 103 Carbon Dioxide 22 L BUN 12 Creatinine 0.76 Glucose 130 H Calcium 6.0 L* Magnesium 1.8 Total Bilirubin 0.5 AST 98 H ALT 33 Alkaline Phosphatase 95 Consult Discharge Plan - Plan Referrals: Angel Ruggiero DO [Primary Care Provider] -
[2018-07-05] MEDS: Multivit/Ca/Min/Fe/FA 1 TAB TABLET PO SCH (08:22)
[2018-07-05] MEDS: Chlorhexidine Rinse 15 ML MOUTHWASH MM SCH ×2 (08:22→21:18)
[2018-07-05] MEDS: Lactulose Oral Soln 20 GM/30 ML UDC GTUBE SCH (08:22)
[2018-07-05] MEDS: Pantoprazole 40 MG VIAL IVP SCH (08:22)
[2018-07-05] MEDS: Finasteride 5 MG TABLET PO SCH (08:23)
[2018-07-05] MEDS ORDERED: Levothyroxine Sodium 100 MCG VIAL IVP SCH (09:00)
[2018-07-05] MEDS ORDERED: Aspirin 81 MG TAB.CHEW GTUBE SCH (09:00)
[2018-07-05] MEDS ORDERED: Vancomycin (wt based) 1,000 MG VIAL IVPB SCH (09:00)
[2018-07-05] MEDS ORDERED: Thiamine (B-1) 100 MG in D5% in Water 50 ML IVPB SCH (09:00)
[2018-07-05] MEDS ORDERED: Aspirin 81 MG TAB.CHEW PO SCH ×3 (09:00→10:00)
[2018-07-05] MEDS ORDERED: (Fluticasone/Vilanterol [Breo Ellipta 200-25 Mcg Inh]) IH SCH (09:00)
[2018-07-05] MEDS ORDERED: Folic Acid 1 MG in D5% in Water 50 ML IVPB SCH (09:00)
[2018-07-05] MEDS ORDERED: Acetaminophen 325 MG TABLET PO PRN (10:27)
[2018-07-05] MEDS ORDERED: Artificial Tears SOLN 15 ML BOTTLE BOTH EYES PRN (10:28)
[2018-07-05] MEDS ORDERED: Naloxone 0.4 MG/ML INJ IVP PRN (10:34)
[2018-07-05] MEDS ORDERED: levETIRAcetam 1,000 MG in 0.9 % Sodium Chloride 100 ML IVPB SCH (11:00)
--- NOTE | 2018-07-05 12:56 | Cardiology Progress Note ---
Date of Encounter: 07/05/18 Time of Encounter: 12:30 Assessment and Plan (1) Abnormal EKG Current Visit: No Status: Acute Patient admitted to the ED d/t unresponsiveness, ECG abnormal with ST depression , was urgently taken to the cytology laboratory manager. Troponin negative. [facility] 07/04/18: EF 40%, dLMCA 60%; 80% ISR pLAD, 70% ISR dLAD, 50% dLAD; LCx/1st OM angiographically free of disease; 99% dRCA stenosis s/p PCI (TG) and 99% R PDA stenosis s/p PCI (TG) TTE 07/05/18: LVEF 40-45%, segmental LV systolic dysfunction, mild LVDD, no significant valvular dysfunction. Mid inferior, basal inferior, apical septal, mid inferior septal and mid anterior septal ross were hypokinetic Patient was recommended for CABG evaluation; seen and evaluated by Dr. Frye, was deemed a poor surgical candidate. Will be readdressed s/p extubation. Continue DAPT for now, start statin and BB when able. On ACEi for reduced LVEF. Cardiac rehab consult. Will further discuss and review with Dr. Braga, will continue to follow. (2) CAD in [place] artery Current Visit: Yes Status: Acute Hx of CAD s/p prior PCI. See above. (3) Acute on chronic respiratory failure with hypoxia Current Visit: Yes Status: Acute Remains intubated, plan for extubation today per bedside RN. Of note, minimal urine output today--will defer to ICU team. Mgmt per ICU team. (4) Non-Hodgkin lymphoma Current Visit: No Status: Chronic Hx of stage IV non-hodgkins lymphoma; per Oncology notes, in remission. s/p chemo, radiation, and x2 years of Rituxan maintenance. Qualifiers: Non-Hodgkin lymphoma type: B-cell B-cell lymphoma type: diffuse large B- cell Lymphoma site: unspecified region Qualified Code(s): C83.30 - Diffuse large B-cell lymphoma, unspecified site (5) Seizure disorder Current Visit: No Status: Chronic Hx of craniotomy d/t SDH (2003), follows with Neurology as outpatient. Recent hospitalization d/t seizures, keppra was increased. Reported seizures, per H&P/ED documentation prior to admission. Discussion w patient/family: The assessment and plan as outlined above was discussed with the patient and/or family members who expressed understanding and agreement. All questions were answered. Thank you for involving us in the care of your patient. Please call with any questions. The patient will be discussed and reviewed with Dr. Braga; changes to be made accordingly. Subjective Principal diagnosis: Acute on chronic respiratory failure Interval history: Seen and examined. Intubated, plan for extubation later today. Responds to simple commands appropriately. No chest pain. Minimal urine output since 8AM. Objective Vital Signs, Last 4 Hours Temp Pulse Resp BP Pulse Ox 07/05/18 11:44 98.6 F 07/05/18 11:07 16 124/64 99 07/05/18 09:39 17 136/66 96 07/05/18 09:00 76 16 112/64 98 General: Other (intubated, nods/moves all extremities appropriately) HEENT: Atraumatic, Normocephaly Cardiac: Reg Rate and Rhythm, Normal S1 and S2 Lungs: Other (decreased) Neuro: Alert and responsive (Intubated, no focal deficits, HARDEN upon command) Abdomen: Soft, Non-Tender Skin: No rashes noted on visualized skin Musculoskeletal: No Chest Wall Tenderness Extremities: No Edema, Normal Pulses Other: Lugo cath--minimal urine output. Right groin CVC left groin arterial line/sheath--soft, no bleeding present. +2 pulses (distal, pedal/PT) bilaterally. Results 07/05/18 04:25 07/05/18 04:00 Lab Results 07/05/18 07/05/18 07/05/18 04:00 04:00 04:25 WBC 11.7 H Hgb 11.2 L D Hct 34.7 L Plt Count 202 INR 1.2 APTT 31.8 Sodium 136 Potassium 3.6 Chloride 103 Carbon Dioxide 22 L BUN 12 Creatinine 0.76 Glucose 130 H Calcium 6.0 L* Magnesium 1.8 Total Bilirubin 0.5 AST 98 H ALT 33 Alkaline Phosphatase 95 Active Medications Acetaminophen (Tylenol) 650 mg PO Q6HR PRN PRN Reason: Mild Pain/Fever Stop: 01/04/19 10:28 Albuterol Sulfate (Albuterol Inhaler) 2 puff IH [id number] [facility] Stop: 01/04/19 12:01 Last Admin: 07/05/18 11:07 Dose: 2 puff Artificial Tears (Akwa Tears) 1 drop BOTH EYES Q2HR PRN; Protocol PRN Reason: Dry Eyes Stop: 01/04/19 10:29 Artificial Tears (Akwa Tears) 1 drop BOTH EYES Q4HR [facility] PRN Reason: Protocol Stop: 01/04/19 12:01 Aspirin (Aspirin) 81 mg GTUBE DAILY [facility] Stop: 01/04/19 09:01 Last Admin: 07/05/18 08:23 Dose: 81 mg Budesonide/Formoterol Fumarate (Symbicort) 2 puff IH BIDRESP [facility] Stop: 01/04/19 22:01 Chlorhexidine Gluconate (Chlorhexidine Rinse) 15 ml MM BID [facility] Stop: 01/04/19 21:01 Clopidogrel Bisulfate (Plavix) 75 mg GTUBE DAILY [facility] Stop: 01/04/19 09:01 Last Admin: 07/05/18 08:23 Dose: 75 mg Finasteride (Proscar) 5 mg PO DAILY [facility] PRN Reason: Protocol Stop: 01/04/19 09:01 Last Admin: 07/05/18 08:23 Dose: 5 mg Heparin Sodium (Porcine) (Heparin) 5,000 unit SQ Q8HCO [facility] Stop: 01/04/19 14:01 Sodium Chloride (0.9 % Sodium Chloride) 1,000 mls @ 100 mls/hr IVC .Q10H [facility] Stop: 07/06/18 04:44 Levofloxacin/Dextrose (Levaquin Premix 750mg/150 Ml) 750 mg in 150 mls @ 100 mls/hr IVPB DAILY [facility] PRN Reason: Protocol Stop: 01/04/19 09:01 Propofol (Diprivan) 1,000 mg in 100 mls @ 3 mls/hr IVC .Q24H [facility]; 10 MCG/KG/MIN PRN Reason: Protocol Stop: 01/04/19 10:01 Clindamycin Phosphate/Dextrose (Cleocin Premix 600 Mg/50 Ml) 600 mg in 50 mls @ 50 mls/hr IVPB Q8H [facility] Stop: 01/04/19 11:01 Levetiracetam 1,000 mg/ Sodium (Chloride) 110 mls @ 400 mls/hr IVPB BID [facility] Stop: 01/04/19 11:01 Thiamine HCl 100 mg/ Folic Acid 1 mg/ Multivitamins 10 ml / Sodium Chloride 511.2 mls @ 85.2 mls/hr IVPB DAILY@1800 [facility] Stop: 07/08/18 18:01 Lactulose (Lactulose) 20 gm GTUBE DAILY [facility] Stop: 01/05/19 09:01 Levothyroxine Sodium (Synthroid) 100 mcg IVP DAILY [facility] Stop: 01/04/19 09:01 Last Admin: 07/05/18 08:22 Dose: 100 mcg Lisinopril (Zestril) 2.5 mg PO DAILY [facility] PRN Reason: Protocol Stop: 01/05/19 09:01 Multivitamins/Calcium (Thera M Plus) 1 tab PO DAILY [facility] Stop: 01/04/19 09:01 Last Admin: 07/05/18 08:22 Dose: 1 tab Naloxone HCl (Narcan) 0.4 mg IVP Q2MIN PRN PRN Reason: SEE COMMENTS Stop: 01/04/19 10:35 Pantoprazole Sodium (Protonix) 40 mg IVP DAILY [facility] Stop: 01/05/19 09:01 Impressions Chest X-Ray 07/04/18 14:31 IMPRESSION: 1. No acute cardiopulmonary disease. D/ / 07/04/2018 14:59:25 Ghislaine Dougherty MD / [facility] Interpreting Provider: Ghislaine Dougherty MD Head CT 07/04/18 14:43 IMPRESSION: 1. No acute intracranial abnormality. No evidence of an acute infarct. 2. Moderate chronic small vessel ischemic changes. 3. Stable postsurgical changes. Results of this examination were verbally communicated to Dr. Betancourt at 3:01 p.m. on 07/04/2018. D/ / Carlos Loya MD / Carlos Loya MD Interpreting Provider: Carlso Loya MD Chest X-Ray 07/04/18 15:08 IMPRESSION: Endotracheal tube terminates 1.9 cm above the marcos. Consider retracting by 1 cm. Enteric tube tip terminates in the peripyloric region. Clear lungs. D/ / Javi Vogel MD / Javi Vogel MD Interpreting Provider: Javi Vogel MD Chest CTA 07/04/18 15:23 IMPRESSION: 1. No pulmonary embolism. 2. Life support appliances appear appropriately positioned. 3. Findings in the lower left lung compatible with aspiration. 4. Nonspecific focal areas of ground-glass opacity medial right upper lobe and in the lower lobes possibly related to focal alveolitis. These are new compared with prior study in April 2018. D/ / Roney Calendine / Roney Calendine Chest X-Ray 07/05/18 04:00 IMPRESSION: Stable support lines and tubes. Minimal, patchy lingular infiltrate has progressed since the prior examination and may reflect developing pneumonia. D/ / 07/05/2018 07:55:09 Karri Lee MD / [facility] Interpreting Provider: Karri Lee MD Echocardiogram 07/05/18 17:41 Impressions: LVEF 40-45%. Normal LV chamber size and wall thickness. Segmental left ventricular systolic dysfunction. Mild left ventricular diastolic dysfunction. Normal right ventricular structure and function. No evidence of pulmonary hypertension. No significant valvular dysfunction. Left Ventricular Wall Motion: Rest Echo Findings The mid inferior, basal inferior, apical septal, mid inferior septal and mid anterior septal ross were hypokinetic. All other wall segments showed normal motion. Findings: Study Quality * Technically adequate exam. ECG Findings * Normal sinus rhythm. Left Ventricle * LVEF 40-45%. * Normal LV chamber size and wall thickness. * Segmental left ventricular systolic dysfunction. * Mild left ventricular diastolic dysfunction. Right Ventricle * Normal right ventricular structure and function. Left Atrium * Mildly dilated left atrium. Right Atrium * Normal right atrial size. Aortic Valve * Aortic valve not well visualized. * No aortic regurgitation. * No aortic stenosis. Mitral Valve * Normal mitral valve structure and function. * No mitral regurgitation. * No mitral stenosis. Tricuspid Valve * Normal tricuspid valve structure and function. * Trace tricuspid regurgitation. * No evidence of pulmonary hypertension. Pulmonic Valve * Pulmonic valve not well visualized. Aorta * Normally sized aortic root. Pericardium * The pericardium appears normal. IVC * The IVC is not well evaluated. Pulmonary Artery * Normal visualized portions of the main pulmonary artery. - Imaging and Cardiology Echo: report reviewed Cardiac cath: report reviewed Other Results: 12 hour tele: avg HR=68 SR. - EKG Interpretation EKG results cardiology: personally reviewed Consult Discharge Plan - Plan Referrals: Angel Ruggiero DO [Primary Care Provider] -
[2018-07-05] MEDS: 0.9 % Sodium Chloride 1,000 ML IVC SCH ×2 (13:33→22:44)
[2018-07-05] MEDS: Levofloxacin 750 MG/150 ML 750 MG/150 ML BAG IVPB SCH (13:37)
[2018-07-05] MEDS: Clindamycin 600 MG/50 ML 600 MG/50 ML IV.SOLN IVPB SCH ×2 (13:37→19:47)
[2018-07-05] MEDS ORDERED: *HR* LORazepam 2 MG/ML VIAL IVP PRN (15:28)
[2018-07-05] MEDS ORDERED: Aztreonam 2,000 MG in Water for inj. (sterile) 20 ML 20 ML IVP SCH (16:00)
[2018-07-05] MEDS: *HR* LORazepam 2 MG/ML VIAL IVP PRN ×3 (17:51→23:04)
[2018-07-05] MEDS: Thiamine (B-1) 100 MG, Folic Acid 1 MG, MVI, adult with vitamin K 10 ML in 0.9 % Sodi... IVPB SCH (19:29)
[2018-07-05] MEDS: levETIRAcetam 250 MG TABLET PO SCH (19:29)
[2018-07-05] MEDS: Budesonide/Formoterol 160/4.5 1 PUFF INH IH SCH (20:43)
[2018-07-06] MEDS: Artificial Tears SOLN 15 ML BOTTLE BOTH EYES SCH ×4 (01:04→11:47)
[2018-07-06] MEDS: *HR* LORazepam 2 MG/ML VIAL IVP PRN (03:02)
[2018-07-06] MEDS: Clindamycin 600 MG/50 ML 600 MG/50 ML IV.SOLN IVPB SCH (03:02)
[2018-07-06 04:08] LABS: Hematocrit 30.1 % (37.5-50.1); Hemoglobin 9.7 g/dL (12.9-16.9); Mean Corpuscular HGB Conc 32.2 g/dL (31.6-35.5); Mean Corpuscular Hemoglobin 27.8 pg (28.0-33.3); Mean Corpuscular Volume 86.2 fL (83.0-100.0); Mean Platelet Volume 9.2 fL (9.4-12.4); Platelet Count 154 K/mcL (140-400); Red Blood Count 3.49 M/mcL (4.19-5.50); Red Cell Distribution Width 15.4 % (11.5-14.5)
[2018-07-06 04:16] LABS: INR 1.5; Prothrombin Time 16.4 Seconds (9.4-12.1)
[2018-07-06 04:19] LABS: Activated Partial Thrombo Time 31.4 Seconds (26.0-36.0)
[2018-07-06 04:24] LABS: VBG Ionized Calcium 0.82 mmol/L (1.15-1.35)
[2018-07-06 04:32] LABS: BUN/Creatinine Ratio 17 (6-26); Blood Urea Nitrogen 12 mg/dL (8-23); Carbon Dioxide 24 mEq/L (23-29); Chloride 107 mEq/L (98-107); Glucose 99 mg/dL (70-105); Potassium 3.5 mEq/L (3.5-5.1); Sodium 138 mEq/L (136-145); eGFR For Non-African Americans > 60 (> 60)
[2018-07-06 04:33] LABS: Alanine Aminotransferase 28 Units/L (7-52); Albumin/Globulin Ratio 1.6 (1.1-2.2); Alkaline Phosphatase 71 Units/L (34-104); Aspartate Amino Transferase 66 Units/L (13-39); Bilirubin,Total 0.5 mg/dL (0.3-1.0); Calcium 5.9 mg/dL (8.6-10.3); Globulin 1.9 g/dL (2.4-3.5); Osmolality,Calculated 286 (280-300); Total Protein 4.9 g/dL (6.4-8.9)
[2018-07-06] MEDS: *HR* Heparin 5,000 UNIT/ML VIAL SQ SCH ×3 (05:26→21:18)
[2018-07-06] MEDS: levETIRAcetam 250 MG TABLET PO SCH ×2 (05:26→17:55)
--- NOTE | 2018-07-06 07:18 | Pulmonology Progress Note ---
<MachelleKera M - Last Filed: 07/06/18 10:04> Date of Encounter: 07/06/18 Objective PUL Vital signs: Last Vital Signs Temp 98.7 F 07/06/18 04:32 Pulse 93 07/06/18 09:00 Resp 96 07/06/18 09:00 BP 118/58 07/06/18 09:00 Pulse Ox 93 07/06/18 09:00 Results - Laboratory Findings CBC and BMP: 07/06/18 03:55 07/06/18 03:55 ABG ABG pH 7.41 pH Units (7.32-7.45) 07/05/18 05:08 ABG pCO2 38 mmHg (35-45) 07/05/18 05:08 ABG pO2 138 mmHg (85-104) H 07/05/18 05:08 ABG O2 Saturation 99 % (95-98) H 07/05/18 05:08 PT/INR, D-dimer PT 16.4 Seconds (9.4-12.1) H 07/06/18 03:55 Abnormal lab findings: Abnormal lab results RBC 3.49 M/mcL (4.19-5.50) L 07/06/18 03:55 Hgb 9.7 g/dL (12.9-16.9) L D 07/06/18 03:55 Hct 30.1 % (37.5-50.1) L 07/06/18 03:55 MCH 27.8 pg (28.0-33.3) L 07/06/18 03:55 RDW 15.4 % (11.5-14.5) H 07/06/18 03:55 MPV 9.2 fL (9.4-12.4) L 07/06/18 03:55 Neutrophils # 9.7 K/mcL (1.6-8.9) H 07/05/18 04:25 Nucleated RBCs/100 WBC 0.2 /100 WBC (0) H 07/04/18 14:39 PT 16.4 Seconds (9.4-12.1) H 07/06/18 03:55 ABG pO2 138 mmHg (85-104) H 07/05/18 05:08 ABG O2 Saturation 99 % (95-98) H 07/05/18 05:08 Calcium 5.9 mg/dL (8.6-10.3) L* 07/06/18 03:55 Venous Ioniz Calcium 0.82 mmol/L (1.15-1.35) L 07/06/18 04:22 AST 66 Units/L (13-39) H 07/06/18 03:55 Serum Total Protein 4.9 g/dL (6.4-8.9) L 07/06/18 03:55 Albumin 3.0 g/dL (3.5-5.7) L 07/06/18 03:55 Globulin 1.9 g/dL (2.4-3.5) L 07/06/18 03:55 TSH < 0.010 mcIU/mL (0.340-5.600) L 07/04/18 14:34 Urine Color Red (Yellow) A 07/04/18 20:25 Urine Clarity Cloudy (Clear) A 07/04/18 20:25 Ur Specific [place] > 1.030 (1.010-1.025) H 07/04/18 20:25 Urine Blood Large (Negative) H 07/04/18 20:25 Ur Leukocyte Esterase Small (Negative) H 07/04/18 20:25 Urine Microscopic RBC TNTC per hpf (0-3) H 07/04/18 20:25 Urine Microscopic WBC 5-15 per hpf (0-3) H 07/04/18 20:25 Ur Culture Indicated? YES (NO) A 07/04/18 20:25 Salicylates < 2.5 mg/dL (15.0-30.0) L 07/04/18 14:34 Acetaminophen < 10 mcg/mL (10-20) L 07/04/18 14:34 U Benzodiazepines Scrn Positive ng/mL (Tpaqrk=243) H 07/04/18 14:31 Ethyl Alcohol 11 mg/dL (Less than 10) H 07/04/18 14:34 - Microbiology Findings Microbiology Findings: Microbiology, Last 48 Hours 07/04/18 20:25 Urine Culture - Preliminary Urine,Clean Catch No significant growth. 07/05/18 20:05 Legionella Antigen - Final Urine,[place] Streptococcus pneumoniae Antigen (M - Final 07/05/18 10:50 Blood Culture - Preliminary Peripheral Venipuncture Culture is incubating and being continuously monitored for growth. Final report to follow. 07/05/18 10:52 Blood Culture - Preliminary Peripheral Venipuncture Culture is incubating and being continuously monitored for growth. Final report to follow. - Clinical Findings Intake & Output: Intake & Output 07/05/18 07/06/18 07/06/18 23:59 07:59 15:59 Intake Total 1050 / 1050 871.2 / 871.2 100 / 100 Output Total 350 / 350 450 / 450 Balance 700 / 700 421.2 / 421.2 100 / 100 Weight 59.7 kg Consult Discharge Plan - Plan Referrals: Angel Ruggiero DO [Primary Care Provider] - - Attending Attestation I examined this patient and my medical decision-making was reviewed with the Resident Physician. I agree with the documented findings, disposition and treatment plan as described except to the extent set forth below. Patient seen and examined. Labs, radiology, chart personally reviewed. Agree with resident's history and physical, assessment, plan with following comments: HIMS CODER: Patient follows commands, patient is lethargic and his be receiving treatment according to CIWA protocol Pulmonary: Acceptable oxygenation and ventilation Cardiovascular: stable and patient has been evaluated by cardiothoracic GI: Nutrition per dietary and GI prophylaxis per routine. May need speech evaluation Heme: DVT prophylaxis per routine ID: Continue antibiotics and plan to de-escalation Renal; urine out put and renal funtion reviewed Endorcine: blood glucose is monitored Lines: all lines checked and no evidence of infections Skin: skin care to prevent pressure ulcers per nursing routine care <Payton Brown - Last Filed: 07/06/18 13:41> Date of Encounter: 07/06/18 Time of Encounter: 07:18 Assessment and Plan (1) Acute hepatic encephalopathy Current Visit: Yes Status: Acute Pt's initial ammonia level was 290, and head CT was negative for acute intracranial abnormality. Lactulose was started. Ammonia level now WNL. Continue lactulose and monitor ammonia level. (2) Alcohol withdrawal Current Visit: Yes Status: Acute Pt had an elevated etoh of 11 on presentation to the ER. Upon extubation, placed on CIWA protocol. Required 3 doses of ativan overnight 07/05/18 and received a total of 5mg for hallucinations and shakiness. Continue CIWA protocol. Qualifiers: Complication of substance-induced condition: with delirium Qualified Code(s ): F10.231 - Alcohol dependence with withdrawal delirium (3) Acute respiratory failure with hypoxia Current Visit: Yes Status: Acute Pt spent one day on ventilator and was extubated on 07/05/18, which he tolerated well. Continues to maintain saturation WNL. (4) Seizure disorder Current Visit: No Status: Chronic Patient was changed to PO Keppra after extubation. Has not had any seizures while inpatient. Maintain seizure precautions. (5) GERD (gastroesophageal reflux disease) Current Visit: Yes Status: Chronic Protonix 40mg IV daily Qualifiers: Esophagitis presence: esophagitis presence not specified Qualified Code(s) : K21.9 - Gastro-esophageal reflux disease without esophagitis (6) Dementia Current Visit: Yes Status: Chronic Hold Aricept until levaquin is d/c'd. Restart PO after EKG to verify QT length. Qualifiers: Dementia type: unspecified type Dementia behavioral disturbance: without behavioral disturbance Qualified Code(s): F03.90 - Unspecified dementia without behavioral disturbance (7) BPH (benign prostatic hyperplasia) Current Visit: Yes Status: Chronic Continue home Proscar. Lugo for I&O measurements. Qualifiers: Lower urinary tract symptom presence: unspecified whether lower urinary tract symptoms present Qualified Code(s): N40.0 - Benign prostatic hyperplasia without lower urinary tract symptoms (8) Unstable angina Current Visit: Yes Status: Acute Pt had 8 stents in the past, and received his 9th on 07/04/18 in the RCA with PTCA after 99% stenosis was discovered. He still has 60% left main and 80% in- stent stenosis of his LAD. He was deemed not a candidate for open heart surgery at this time, as he will need to be extubated for assessment and off Plavix for 5-7 days prior to surgery. Pt stated he did not wish to have CABG surgery on . Continue to monitor. (9) Acute on chronic respiratory failure with hypoxia Current Visit: Yes Status: Acute Pt emergently intubated upon arrival to ED on 07/04/18. Extubated on 07/05/18. Tracheostomy scar. Continue to monitor. (10) Hypothyroidism Current Visit: Yes Status: Chronic Continue PO Synthroid. Qualifiers: Hypothyroidism type: unspecified Qualified Code(s): E03.9 - Hypothyroidism , unspecified (11) Large B-cell lymphoma Current Visit: Yes Status: Chronic T-cell Lymphoma, stage IV, status post-chemotherapy, radiation, and two years of Rituxan maintenance. Nonspecific focal areas of ground-glass opacities in medial RUL, could be related to focal alveolitis, new compared to previous study in April 2018. Pt is followed by [facility]. (12) Severe protein-calorie malnutrition Current Visit: Yes Status: Acute BMI 21, Nutrition consulted, Speech consulted for swallow study. Advance diet as tolerated. (13) DVT prophylaxis Current Visit: Yes Status: Acute Heparin SQ TID Subjective Principal diagnosis: Acute on chronic respiratory failure Interval history: Pt is a 73 year old male that presented to the ED on 07/04/18 in acute respiratory failure and unresponsive, was emergently intubated. His EKG showed ST depressions consistent with ischemia and he was taken to the microbiology lab technician and had a stent placed by PTCA in his RCA. Pt was extubated yesterday and was able to maintain saturation all day and overnight. Pt was placed on CIWA protocol yesterday and was confused overnight, required 3 doses of Ativan for a total of 5mg for hallucinations and some shakiness. He was normothermic overnight and AM CXR showed improved left basilar area, which is less concerning for PNA and more in line with atelectasis - clindamycin will be d/c today. Once cultures have been no-growth for 48 hours, levaquin can also be d/c. Legionella and S PNA urine antigens were negative. Speech has been consulted in order to do a swallow study and advance his diet. Pt still has catheter sheath present in groin, CT surgery does not want to pull at present. Pt was asked about possibility for CABG surgery and stated he was not interested in that procedure at this time. SW was consulted yesterday and states that he has services at home including a FIXED INCOME DIRECTOR and residential aide, as well as connection to [employer]. Objective PUL Vital signs: Last Vital Signs Temp 98.7 F 07/06/18 04:32 Pulse 89 07/06/18 05:58 Resp 18 07/06/18 05:58 BP 118/62 07/06/18 05:58 Pulse Ox 95 07/06/18 05:58 General appearance: other (drowsy but arousable, although confused) Eyes: nonicteric ENT: oropharynx dry Effort: normal Auscultation: bilateral: rhonchi Cardiovascular: regular rate and rhythm Gastrointestinal: normoactive bowel sounds Integumentary: normal Extremities: no cyanosis unable to assess due to mental status other (confused) Results - Laboratory Findings CBC and BMP: 07/06/18 03:55 07/06/18 03:55 ABG ABG pH 7.41 pH Units (7.32-7.45) 07/05/18 05:08 ABG pCO2 38 mmHg (35-45) 07/05/18 05:08 ABG pO2 138 mmHg (85-104) H 07/05/18 05:08 ABG O2 Saturation 99 % (95-98) H 07/05/18 05:08 PT/INR, D-dimer PT 16.4 Seconds (9.4-12.1) H 07/06/18 03:55 Abnormal lab findings: Abnormal lab results RBC 3.49 M/mcL (4.19-5.50) L 07/06/18 03:55 Hgb 9.7 g/dL (12.9-16.9) L D 07/06/18 03:55 Hct 30.1 % (37.5-50.1) L 07/06/18 03:55 MCH 27.8 pg (28.0-33.3) L 07/06/18 03:55 RDW 15.4 % (11.5-14.5) H 07/06/18 03:55 MPV 9.2 fL (9.4-12.4) L 07/06/18 03:55 Neutrophils # 9.7 K/mcL (1.6-8.9) H 07/05/18 04:25 Nucleated RBCs/100 WBC 0.2 /100 WBC (0) H 07/04/18 14:39 PT 16.4 Seconds (9.4-12.1) H 07/06/18 03:55 ABG pO2 138 mmHg (85-104) H 07/05/18 05:08 ABG O2 Saturation 99 % (95-98) H 07/05/18 05:08 Calcium 5.9 mg/dL (8.6-10.3) L* 07/06/18 03:55 Venous Ioniz Calcium 0.82 mmol/L (1.15-1.35) L 07/06/18 04:22 AST 66 Units/L (13-39) H 07/06/18 03:55 Serum Total Protein 4.9 g/dL (6.4-8.9) L 07/06/18 03:55 Albumin 3.0 g/dL (3.5-5.7) L 07/06/18 03:55 Globulin 1.9 g/dL (2.4-3.5) L 07/06/18 03:55 TSH < 0.010 mcIU/mL (0.340-5.600) L 07/04/18 14:34 Urine Color Red (Yellow) A 07/04/18 20:25 Urine Clarity Cloudy (Clear) A 07/04/18 20:25 Ur Specific [place] > 1.030 (1.010-1.025) H 07/04/18 20:25 Urine Blood Large (Negative) H 07/04/18 20:25 Ur Leukocyte Esterase Small (Negative) H 07/04/18 20:25 Urine Microscopic RBC TNTC per hpf (0-3) H 07/04/18 20:25 Urine Microscopic WBC 5-15 per hpf (0-3) H 07/04/18 20:25 Ur Culture Indicated? YES (NO) A 07/04/18 20:25 Salicylates < 2.5 mg/dL (15.0-30.0) L 07/04/18 14:34 Acetaminophen < 10 mcg/mL (10-20) L 07/04/18 14:34 U Benzodiazepines Scrn Positive ng/mL (Rpovda=852) H 07/04/18 14:31 Ethyl Alcohol 11 mg/dL (Less than 10) H 07/04/18 14:34 - Microbiology Findings Microbiology Findings: Microbiology, Last 48 Hours 07/05/18 20:05 Legionella Antigen - Final Urine,[place] Streptococcus pneumoniae Antigen (M - Final 07/05/18 10:50 Blood Culture - Preliminary Peripheral Venipuncture Culture is incubating and being continuously monitored for growth. Final report to follow. 07/05/18 10:52 Blood Culture - Preliminary Peripheral Venipuncture Culture is incubating and being continuously monitored for growth. Final report to follow. - Diagnostic Findings Chest x-ray: report reviewed, image reviewed - Clinical Findings Intake & Output: Intake & Output 07/05/18 07/05/18 07/06/18 15:59 23:59 07:59 Intake Total 200 / 200 1050 / 1050 771.2 / 771.2 Output Total 100 / 100 350 / 350 450 / 450 Balance 100 / 100 700 / 700 321.2 / 321.2 Weight 59.7 kg - VTE Documentation of Mechanical Device: Intermittent pneumatic compression device
[2018-07-06] MEDS: Levofloxacin 750 MG/150 ML 750 MG/150 ML BAG IVPB SCH (07:51)
[2018-07-06] MEDS: Aspirin 81 MG TAB.CHEW PO SCH (07:51)
[2018-07-06] MEDS: Chlorhexidine Rinse 15 ML MOUTHWASH MM SCH (07:52)
[2018-07-06] MEDS: Lactulose Oral Soln 20 GM/30 ML UDC PO SCH (07:52)
[2018-07-06] MEDS: Finasteride 5 MG TABLET PO SCH (07:54)
[2018-07-06] MEDS: Multivit/Ca/Min/Fe/FA 1 TAB TABLET PO SCH (07:55)
[2018-07-06] MEDS: Metoprolol XL (24 HR) Succ 25 MG TAB.ER.24H PO SCH (07:55)
[2018-07-06] MEDS: Budesonide/Formoterol 160/4.5 1 PUFF INH IH SCH ×2 (08:01→19:46)
[2018-07-06] MEDS ORDERED: Pantoprazole 40 MG VIAL IVP SCH (09:00)
[2018-07-06] MEDS ORDERED: Lactulose Oral Soln 20 GM/30 ML UDC GTUBE SCH (09:00)
--- NOTE | 2018-07-06 11:02 | Cardiology Progress Note ---
Date of Encounter: 07/06/18 Time of Encounter: 09:45 Assessment and Plan (1) Abnormal EKG Current Visit: No Status: Acute Patient admitted to the ED d/t unresponsiveness, ECG abnormal with ST depression , was urgently taken to the organic lab worker. Troponin negative. Ammonia 260 (now normal ) [facility] 07/04/18: EF 40%, dLMCA 60%; 80% ISR pLAD, 70% ISR dLAD, 50% dLAD; LCx/1st OM angiographically free of disease; 99% dRCA stenosis s/p PCI (TG) and 99% R PDA stenosis s/p PCI (TG) TTE 07/05/18: LVEF 40-45%, segmental LV systolic dysfunction, mild LVDD, no significant valvular dysfunction. Mid inferior, basal inferior, apical septal, mid inferior septal and mid anterior septal ross were hypokinetic Patient was recommended for CABG evaluation; seen and evaluated by Dr. Frye, was deemed a poor surgical candidate. Continue DAPT for now, start statin and BB when able. On ACEi for reduced LVEF. Continue medical therapy for now, re-evaluate if staged PCI recommended. Cardiac rehab consult. Will further discuss and review with Dr. Braga, will continue to follow. (2) CAD in [place] artery Current Visit: Yes Status: Acute Hx of CAD s/p prior PCI. See above. (3) Acute on chronic respiratory failure with hypoxia Current Visit: Yes Status: Acute Extubated yesterday; started CIWA protocol for ETOH abuse. Very drowsy (s/p ativan this AM) upon exam. (4) Non-Hodgkin lymphoma Current Visit: No Status: Chronic Hx of stage IV non-hodgkins lymphoma; per Oncology notes, in remission. s/p chemo, radiation, and x2 years of Rituxan maintenance. Qualifiers: Non-Hodgkin lymphoma type: B-cell B-cell lymphoma type: diffuse large B- cell Lymphoma site: unspecified region Qualified Code(s): C83.30 - Diffuse large B-cell lymphoma, unspecified site (5) Seizure disorder Current Visit: No Status: Chronic Hx of craniotomy d/t SDH (2003), follows with Neurology as outpatient. Recent hospitalization d/t seizures, keppra was increased. Reported seizures, per H&P/ED documentation prior to admission. Discussion w patient/family: The assessment and plan as outlined above was discussed with the patient and/or family members who expressed understanding and agreement. All questions were answered. Thank you for involving us in the care of your patient. Please call with any questions. The patient will be discussed and reviewed with Dr. Braga; changes to be made accordingly. Subjective Principal diagnosis: Acute on chronic respiratory failure Interval history: Seen and examined. Extubated yesterday. CIWA protocol started yesterday. Patient is extremely drowsy upon exam this morning, able to follow simple commands, HARDEN x4, however is unable to hold meaningful conversation. Denies chest pain/discomfort. Objective Vital Signs, Last 4 Hours Temp Pulse Resp BP Pulse Ox 07/06/18 09:00 93 96 118/58 93 07/06/18 08:01 16 95 07/06/18 08:00 98.0 F 89 16 122/58 96 07/06/18 07:00 94 19 127/67 95 General: Other (drowsy) HEENT: Atraumatic, Normocephaly Cardiac: Reg Rate and Rhythm, Normal S1 and S2 Lungs: Other (coarse, anterior only) Neuro: No focal deficits noted Abdomen: Soft Skin: No rashes noted on visualized skin Extremities: No Edema, Normal Pulses Other: right groin arterial sheath present (order placed for removal) left groin CVC Results 07/06/18 03:55 07/06/18 03:55 Lab Results 07/06/18 07/06/18 07/06/18 03:55 03:55 03:55 WBC 6.8 Hgb 9.7 L D Hct 30.1 L Plt Count 154 INR 1.5 APTT 31.4 Sodium 138 Potassium 3.5 Chloride 107 Carbon Dioxide 24 BUN 12 Creatinine 0.72 Glucose 99 Calcium 5.9 L* Total Bilirubin 0.5 AST 66 H ALT 28 Alkaline Phosphatase 71 Active Medications Acetaminophen (Tylenol) 650 mg PO Q6HR PRN PRN Reason: Mild Pain/Fever Stop: 01/04/19 10:28 Albuterol Sulfate (Albuterol Inhaler) 2 puff IH [id number] [facility] Stop: 01/04/19 12:01 Last Admin: 07/06/18 08:00 Dose: 2 puff Artificial Tears (Akwa Tears) 1 drop BOTH EYES Q2HR PRN; Protocol PRN Reason: Dry Eyes Stop: 01/04/19 10:29 Artificial Tears (Akwa Tears) 1 drop BOTH EYES Q4HR [facility] PRN Reason: Protocol Stop: 01/04/19 12:01 Last Admin: 07/06/18 07:52 Dose: Not Given Aspirin (Aspirin) 81 mg PO DAILY [facility] Stop: 01/04/19 15:28 Last Admin: 07/06/18 07:51 Dose: Not Given Atorvastatin Calcium (Lipitor) 40 mg PO HS [facility] Stop: 01/04/19 21:01 Last Admin: 07/05/18 21:18 Dose: Not Given Budesonide/Formoterol Fumarate (Symbicort) 2 puff IH BIDRESP [facility] Stop: 01/04/19 22:01 Last Admin: 07/06/18 08:01 Dose: 2 puff Chlorhexidine Gluconate (Chlorhexidine Rinse) 15 ml MM BID [facility] Stop: 01/04/19 21:01 Last Admin: 07/06/18 07:52 Dose: Not Given Clopidogrel Bisulfate (Plavix) 75 mg PO DAILY [facility] Stop: 01/05/19 09:01 Last Admin: 07/06/18 07:52 Dose: Not Given Finasteride (Proscar) 5 mg PO DAILY [facility] PRN Reason: Protocol Stop: 01/04/19 09:01 Last Admin: 07/06/18 07:54 Dose: Not Given Heparin Sodium (Porcine) (Heparin) 5,000 unit SQ Q8HCO [facility] Stop: 01/04/19 14:01 Last Admin: 07/06/18 05:26 Dose: 5,000 unit Levofloxacin/Dextrose (Levaquin Premix 750mg/150 Ml) 750 mg in 150 mls @ 100 mls/hr IVPB DAILY [facility] PRN Reason: Protocol Stop: 01/04/19 09:01 Last Admin: 07/06/18 07:51 Dose: 100 mls/hr Thiamine HCl 100 mg/ Folic Acid 1 mg/ Multivitamins 10 ml / Sodium Chloride 511.2 mls @ 85.2 mls/hr IVPB DAILY@1800 [facility] Stop: 07/08/18 18:01 Last Infusion: 07/06/18 01:29 Dose: Infused Calcium Gluconate 1,000 mg/ (Sodium Chloride) 110 mls @ 220 mls/hr IVPB Q6H PRN PRN Reason: Hypocalcemia Stop: 01/05/19 05:03 Last Infusion: 07/06/18 06:06 Dose: Infused Potassium Chloride (Potassium Chloride 10 Meq/100ml) 10 meq in 100 mls @ 100 mls/hr IVPB Q1H PRN PRN Reason: Potassium less than 4 Stop: 01/05/19 05:03 Last Admin: 07/06/18 09:34 Dose: 100 mls/hr Lactulose (Lactulose) 20 gm PO DAILY [facility] Stop: 01/05/19 09:01 Last Admin: 07/06/18 07:52 Dose: Not Given Levetiracetam (Keppra) 1,000 mg PO Q12HR [facility] Stop: 01/04/19 18:01 Last Admin: 07/06/18 05:26 Dose: 1,000 mg Lisinopril (Zestril) 2.5 mg PO DAILY [facility] PRN Reason: Protocol Stop: 01/05/19 09:01 Last Admin: 07/06/18 07:55 Dose: Not Given Lorazepam (Ativan) 1 mg IVP Q1H PRN PRN Reason: Alcohol Withdrawal Stop: 01/04/19 15:29 Last Admin: 07/05/18 23:04 Dose: 1 mg Lorazepam (Ativan) 2 mg IVP Q4HR PRN PRN Reason: CIWA Score of 10-21 Stop: 01/04/19 15:29 Last Admin: 07/06/18 03:02 Dose: 2 mg Lorazepam (Ativan) 4 mg IVP Q4HR PRN PRN Reason: CIWA Score of 22-45 Stop: 01/04/19 15:29 Metoprolol Succinate (Toprol Xl) 12.5 mg PO DAILY [facility] Stop: 01/05/19 09:01 Last Admin: 07/06/18 07:55 Dose: Not Given Multivitamins/Calcium (Thera M Plus) 1 tab PO DAILY [facility] Stop: 01/04/19 09:01 Last Admin: 07/06/18 07:55 Dose: Not Given Naloxone HCl (Narcan) 0.4 mg IVP Q2MIN PRN PRN Reason: SEE COMMENTS Stop: 01/04/19 10:35 Pantoprazole Sodium (Protonix) 40 mg IVP DAILY [facility] Stop: 01/05/19 09:01 Last Admin: 07/06/18 07:54 Dose: 40 mg - Imaging and Cardiology Echo: report reviewed Cardiac cath: report reviewed Other Results: 12 hour tele: avg HR=68 SR. No events noted. - EKG Interpretation EKG results cardiology: personally reviewed - VTE Documentation of Mechanical Device: Intermittent pneumatic compression device Consult Discharge Plan - Plan Referrals: Angel Ruggiero DO [Primary Care Provider] -
[2018-07-06 16:43] LABS: VBG Ionized Calcium 0.88 mmol/L (1.15-1.35); VBG PH 7.38 pH Units (7.32-7.42)
[2018-07-06] MEDS: Thiamine (B-1) 100 MG, Folic Acid 1 MG, MVI, adult with vitamin K 10 ML in 0.9 % Sodi... IVPB SCH (17:55)
[2018-07-07 03:58] LABS: Basophils % 0.1 %; Eosinophils # 0.1 K/mcL (0.0-0.6); Eosinophils % 0.7 %; Hematocrit 32.1 % (37.5-50.1); Hemoglobin 10.4 g/dL (12.9-16.9); Immature Granulocytes % 0.7 % (0-4); Lymphocytes # 0.8 K/mcL (0.6-4.6); Lymphocytes % 10.5 %; Mean Corpuscular HGB Conc 32.4 g/dL (31.6-35.5); Mean Corpuscular Volume 86.3 fL (83.0-100.0); Mean Platelet Volume 9.5 fL (9.4-12.4); Monocytes # 0.8 K/mcL (0.0-1.3); Neutrophils # 5.5 K/mcL (1.6-8.9); Platelet Count 165 K/mcL (140-400); Red Blood Count 3.72 M/mcL (4.19-5.50); Red Cell Distribution Width 15.7 % (11.5-14.5)
[2018-07-07 04:04] LABS: VBG Ionized Calcium 0.91 mmol/L (1.15-1.35)
[2018-07-07 04:21] LABS: Alanine Aminotransferase 31 Units/L (7-52); Albumin 3.3 g/dL (3.5-5.7); Albumin/Globulin Ratio 1.4 (1.1-2.2); Alkaline Phosphatase 70 Units/L (34-104); Aspartate Amino Transferase 80 Units/L (13-39); BUN/Creatinine Ratio 12 (6-26); Bilirubin,Total 0.6 mg/dL (0.3-1.0); Blood Urea Nitrogen 9 mg/dL (8-23); Calcium 6.9 mg/dL (8.6-10.3); Carbon Dioxide 22 mEq/L (23-29); Chloride 105 mEq/L (98-107); Globulin 2.3 g/dL (2.4-3.5); Glucose 97 mg/dL (70-105); Magnesium 1.6 mg/dL (1.6-2.6); Osmolality,Calculated 285 (280-300); Phosphorous 2.7 mg/dL (2.7-4.5); Potassium 4.2 mEq/L (3.5-5.1); Sodium 138 mEq/L (136-145); Total Protein 5.6 g/dL (6.4-8.9); eGFR For Non-African Americans > 60 (> 60)
[2018-07-07] MEDS: *HR* Heparin 5,000 UNIT/ML VIAL SQ SCH ×3 (05:51→22:09)
[2018-07-07] MEDS: levETIRAcetam 250 MG TABLET PO SCH ×2 (05:51→16:52)
--- NOTE | 2018-07-07 07:33 | Event Note ---
Date of Encounter: 07/07/18 Time of Encounter: 07:31 The cardiac catheterization film was reviewed. The patient has multiple LAD stents with in-stent restenosis; however, the distal LAD is small and not bypassable. The LCx could be bypassed and the RCA has good flow after the PTCA. I do not believe that the patient is a good operative candidate and should be treated medically or with possible high risk PCI to address the LAD in -stent restenosis.
[2018-07-07] MEDS ORDERED: Ipratropium/Albuterol Neb 3 ML IH PRN (08:33)
--- NOTE | 2018-07-07 08:39 | Pulmonology Progress Note ---
<Sarah Cutler E - Last Filed: 07/07/18 10:59> Date of Encounter: 07/07/18 Time of Encounter: 08:00 Assessment and Plan (1) Acute hepatic encephalopathy Current Visit: Yes Status: Acute Pt's initial ammonia level was 290, and head CT was negative for acute intracranial abnormality. Lactulose was started. Ammonia level now WNL. Continue lactulose and monitor ammonia level (2) Alcohol withdrawal Current Visit: Yes Status: Acute Pt had an elevated etoh of 11 on presentation to the ER. Upon extubation, placed on CIWA protocol We will discontinue CIWA protocol, Ativan up to 1 mg as needed for agitation Qualifiers: Complication of substance-induced condition: with delirium Qualified Code(s ): F10.231 - Alcohol dependence with withdrawal delirium (3) Acute respiratory failure with hypoxia Current Visit: Yes Status: Acute Pt spent one day on ventilator and was extubated on 07/05/18, which he tolerated well. Continues to maintain saturation WNL. (4) Seizure disorder Current Visit: No Status: Chronic Patient was changed to PO Keppra after extubation. Has not had any seizures while inpatient. Maintain seizure precautions. (5) GERD (gastroesophageal reflux disease) Current Visit: Yes Status: Chronic Protonix 40mg IV daily Qualifiers: Esophagitis presence: esophagitis presence not specified Qualified Code(s) : K21.9 - Gastro-esophageal reflux disease without esophagitis (6) Dementia Current Visit: Yes Status: Chronic Holding Aricept due to Levaquin use. Clinical history seed today we will need to think about restarting by mouth tomorrow afternoon EKG to verify his QT length Qualifiers: Dementia type: unspecified type Dementia behavioral disturbance: without behavioral disturbance Qualified Code(s): F03.90 - Unspecified dementia without behavioral disturbance (7) BPH (benign prostatic hyperplasia) Current Visit: No Status: Acute Continue home Proscar. [place] for I&O measurements (8) Unstable angina Current Visit: Yes Status: Acute Pt had 8 stents in the past, and received his 9th on 07/04/18 in the RCA with PTCA after 99% stenosis was discovered. He still has 60% left main and 80% in- stent stenosis of his LAD. He was deemed not a candidate for open heart surgery at this time, (9) Acute on chronic respiratory failure with hypoxia Current Visit: Yes Status: Acute Pt emergently intubated upon arrival to ED on 07/04/18. Extubated on 07/05/18. Tracheostomy scar. Continue to monitor (10) Hypothyroidism Current Visit: Yes Status: Chronic Continue PO Synthroid. Qualifiers: Hypothyroidism type: unspecified Qualified Code(s): E03.9 - Hypothyroidism , unspecified (11) Large B-cell lymphoma Current Visit: Yes Status: Chronic T-cell Lymphoma, stage IV, status post-chemotherapy, radiation, and two years of Rituxan maintenance. Nonspecific focal areas of ground-glass opacities in medial RUL, could be related to focal alveolitis, new compared to previous study in April 2018. Pt is followed by [facility]. (12) Severe protein-calorie malnutrition Current Visit: Yes Status: Acute BMI 21, Nutrition consulted, Speech consulted for swallow study. Advance diet as tolerated. (13) DVT prophylaxis Current Visit: Yes Status: Acute Heparin SQ TID Subjective Principal diagnosis: Acute on chronic respiratory failure Interval history: Pt is a 73 year old male that presented to the ED on 07/04/18 in acute respiratory failure and unresponsive, was emergently intubated. 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 Pt was extubated 07/05/18 and was able to maintain saturation all day and overnight. Pt was placed on CIWA protocol recieved 2 mg adivan last light at 3 am. CIWA was discontinued this morning, adivan for agitation 1mg every 4 hours PRN ordered. . Levaquin was discontinued and clindamycin was started at 600 mg every 8 hours. Speech has been consulted in order to do a swallow study said honey thick liquids patient was given applesauce last night and had a lot of trouble with this, is currently nothing by mouth again. Objective PUL Vital signs: Last Vital Signs Temp 98.1 F 07/07/18 08:00 Pulse 68 07/07/18 08:00 Resp 18 07/07/18 08:00 BP 132/78 07/07/18 08:00 Pulse Ox 98 07/07/18 08:00 General appearance: no acute distress Eyes: nonicteric ENT: oropharynx moist Effort: normal Auscultation: bilateral: rhonchi (Diffusely) Cardiovascular: regular rate and rhythm Gastrointestinal: normoactive bowel sounds, soft, non-tender Extremities: no cyanosis, no edema other (Slightly confused) mood appropriate Results - Laboratory Findings CBC and BMP: 07/07/18 03:45 07/07/18 03:45 ABG ABG pH 7.41 pH Units (7.32-7.45) 07/05/18 05:08 ABG pCO2 38 mmHg (35-45) 07/05/18 05:08 ABG pO2 138 mmHg (85-104) H 07/05/18 05:08 ABG O2 Saturation 99 % (95-98) H 07/05/18 05:08 PT/INR, D-dimer PT 16.4 Seconds (9.4-12.1) H 07/06/18 03:55 Abnormal lab findings: Abnormal lab results RBC 3.72 M/mcL (4.19-5.50) L 07/07/18 03:45 Hgb 10.4 g/dL (12.9-16.9) L 07/07/18 03:45 Hct 32.1 % (37.5-50.1) L 07/07/18 03:45 RDW 15.7 % (11.5-14.5) H 07/07/18 03:45 Nucleated RBCs/100 WBC 0.2 /100 WBC (0) H 07/04/18 14:39 PT 16.4 Seconds (9.4-12.1) H 07/06/18 03:55 ABG pO2 138 mmHg (85-104) H 07/05/18 05:08 ABG O2 Saturation 99 % (95-98) H 07/05/18 05:08 Carbon Dioxide 22 mEq/L (23-29) L 07/07/18 03:45 POC Glucose 108 mg/dL (70-99) H 07/06/18 23:05 Calcium 6.9 mg/dL (8.6-10.3) L 07/07/18 03:45 Venous Ioniz Calcium 0.91 mmol/L (1.15-1.35) L 07/07/18 04:01 AST 80 Units/L (13-39) H 07/07/18 03:45 Serum Total Protein 5.6 g/dL (6.4-8.9) L 07/07/18 03:45 Albumin 3.3 g/dL (3.5-5.7) L 07/07/18 03:45 Globulin 2.3 g/dL (2.4-3.5) L 07/07/18 03:45 Procalcitonin 0.25 ng/mL (<=0.07) H 07/05/18 10:52 TSH < 0.010 mcIU/mL (0.340-5.600) L 07/04/18 14:34 Urine Color Red (Yellow) A 07/04/18 20:25 Urine Clarity Cloudy (Clear) A 07/04/18 20:25 Ur Specific [place] > 1.030 (1.010-1.025) H 07/04/18 20:25 Urine Blood Large (Negative) H 07/04/18 20:25 Ur Leukocyte Esterase Small (Negative) H 07/04/18 20:25 Urine Microscopic RBC TNTC per hpf (0-3) H 07/04/18 20:25 Urine Microscopic WBC 5-15 per hpf (0-3) H 07/04/18 20:25 Ur Culture Indicated? YES (NO) A 07/04/18 20:25 Salicylates < 2.5 mg/dL (15.0-30.0) L 07/04/18 14:34 Acetaminophen < 10 mcg/mL (10-20) L 07/04/18 14:34 U Benzodiazepines Scrn Positive ng/mL (Vewusf=381) H 07/04/18 14:31 Ethyl Alcohol 11 mg/dL (Less than 10) H 07/04/18 14:34 - Microbiology Findings Microbiology Findings: Microbiology, Last 48 Hours 07/04/18 20:25 Urine Culture - Preliminary Urine,Clean Catch No significant growth. 07/05/18 20:05 Legionella Antigen - Final Urine,[place] Streptococcus pneumoniae Antigen (M - Final 07/05/18 10:50 Blood Culture - Preliminary Peripheral Venipuncture Culture is incubating and being continuously monitored for growth. Final report to follow. 07/05/18 10:52 Blood Culture - Preliminary Peripheral Venipuncture Culture is incubating and being continuously monitored for growth. Final report to follow. - Clinical Findings Intake & Output: Intake & Output 07/06/18 07/07/18 07/07/18 23:59 07:59 15:59 Intake Total 510 / 510 621.2 / 621.2 Output Total 450 / 450 150 / 150 250 / 250 Balance 60 / 60 471.2 / 471.2 -250 / -250 - VTE Documentation of Mechanical Device: Intermittent pneumatic compression device Consult Discharge Plan - Plan Referrals: Angel Ruggiero DO [Primary Care Provider] - <MayraeloinaKera cervantes Rigoberto - Last Filed: 07/07/18 11:16> Date of Encounter: 07/07/18 Objective PUL Vital signs: Last Vital Signs Temp 97.9 F 07/07/18 09:59 Pulse 70 07/07/18 10:00 Resp 18 07/07/18 10:00 BP 119/64 07/07/18 10:00 Pulse Ox 98 07/07/18 10:00 Results - Laboratory Findings CBC and BMP: 07/07/18 03:45 07/07/18 03:45 ABG ABG pH 7.41 pH Units (7.32-7.45) 07/05/18 05:08 ABG pCO2 38 mmHg (35-45) 07/05/18 05:08 ABG pO2 138 mmHg (85-104) H 07/05/18 05:08 ABG O2 Saturation 99 % (95-98) H 07/05/18 05:08 PT/INR, D-dimer PT 16.4 Seconds (9.4-12.1) H 07/06/18 03:55 Abnormal lab findings: Abnormal lab results RBC 3.72 M/mcL (4.19-5.50) L 07/07/18 03:45 Hgb 10.4 g/dL (12.9-16.9) L 07/07/18 03:45 Hct 32.1 % (37.5-50.1) L 07/07/18 03:45 RDW 15.7 % (11.5-14.5) H 07/07/18 03:45 Nucleated RBCs/100 WBC 0.2 /100 WBC (0) H 07/04/18 14:39 PT 16.4 Seconds (9.4-12.1) H 07/06/18 03:55 ABG pO2 138 mmHg (85-104) H 07/05/18 05:08 ABG O2 Saturation 99 % (95-98) H 07/05/18 05:08 Carbon Dioxide 22 mEq/L (23-29) L 07/07/18 03:45 POC Glucose 108 mg/dL (70-99) H 07/06/18 23:05 Calcium 6.9 mg/dL (8.6-10.3) L 07/07/18 03:45 Venous Ioniz Calcium 0.91 mmol/L (1.15-1.35) L 07/07/18 04:01 AST 80 Units/L (13-39) H 07/07/18 03:45 Serum Total Protein 5.6 g/dL (6.4-8.9) L 07/07/18 03:45 Albumin 3.3 g/dL (3.5-5.7) L 07/07/18 03:45 Globulin 2.3 g/dL (2.4-3.5) L 07/07/18 03:45 Procalcitonin 0.25 ng/mL (<=0.07) H 07/05/18 10:52 TSH < 0.010 mcIU/mL (0.340-5.600) L 07/04/18 14:34 Urine Color Red (Yellow) A 07/04/18 20:25 Urine Clarity Cloudy (Clear) A 07/04/18 20:25 Ur Specific [place] > 1.030 (1.010-1.025) H 07/04/18 20:25 Urine Blood Large (Negative) H 07/04/18 20:25 Ur Leukocyte Esterase Small (Negative) H 07/04/18 20:25 Urine Microscopic RBC TNTC per hpf (0-3) H 07/04/18 20:25 Urine Microscopic WBC 5-15 per hpf (0-3) H 07/04/18 20:25 Ur Culture Indicated? YES (NO) A 07/04/18 20:25 Salicylates < 2.5 mg/dL (15.0-30.0) L 07/04/18 14:34 Acetaminophen < 10 mcg/mL (10-20) L 07/04/18 14:34 U Benzodiazepines Scrn Positive ng/mL (Xwfxbi=[id number]) H 07/04/18 14:31 Ethyl Alcohol 11 mg/dL (Less than 10) H 07/04/18 14:34 - Microbiology Findings Microbiology Findings: Microbiology, Last 48 Hours 07/04/18 20:25 Urine Culture - Final Urine,Clean Catch No significant growth. 07/05/18 20:05 Legionella Antigen - Final Urine,[place] Streptococcus pneumoniae Antigen (M - Final 07/05/18 10:50 Blood Culture - Preliminary Peripheral Venipuncture Culture is incubating and being continuously monitored for growth. Final report to follow. 07/05/18 10:52 Blood Culture - Preliminary Peripheral Venipuncture Culture is incubating and being continuously monitored for growth. Final report to follow. - Clinical Findings Intake & Output: Intake & Output 07/06/18 07/07/18 07/07/18 23:59 07:59 15:59 Intake Total 510 / 510 621.2 / 621.2 Output Total 450 / 450 150 / 150 500 / 500 Balance 60 / 60 471.2 / 471.2 -500 / -500 - Attending Attestation I examined this patient and my medical decision-making was reviewed with the Resident Physician. I agree with the documented findings, disposition and treatment plan as described except to the extent set forth below. Patient seen and examined. Labs, radiology, chart personally reviewed. 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 Ativan and only to receive if he has agitation with a smaller dose. Pulmonary: Acceptable oxygenation and ventilation. Patient is at risk for aspiration secondary to his mental status and empiric treatment for aspiration pneumonia. Reviewed his chest x-ray. Cardiovascular: stable and reviewed cardiology note. GI: Nutrition per dietary and GI prophylaxis per routine patient was evaluated by speech. Heme: DVT prophylaxis per routine ID: Continue antibiotics and plan to de-escalation Renal; urine out put and renal funtion reviewed Endorcine: blood glucose is monitored Lines: all lines checked and no evidence of infections Skin: skin care to prevent pressure ulcers per nursing routine care Overall prognosis is poor and may need palliative care.
[2018-07-07] MEDS ORDERED: *HR* LORazepam 2 MG/ML VIAL IVP PRN (08:50)
[2018-07-07] MEDS: Aspirin 81 MG TAB.CHEW PO SCH (09:42)
[2018-07-07] MEDS: Finasteride 5 MG TABLET PO SCH (09:42)
[2018-07-07] MEDS: Multivit/Ca/Min/Fe/FA 1 TAB TABLET PO SCH (09:42)
[2018-07-07] MEDS: Lactulose Oral Soln 20 GM/30 ML UDC PO SCH (09:42)
[2018-07-07] MEDS: Metoprolol XL (24 HR) Succ 25 MG TAB.ER.24H PO SCH (09:42)
--- NOTE | 2018-07-07 10:13 | Cardiology Progress Note ---
Date of Encounter: 07/07/18 Time of Encounter: 10:13 Assessment and Plan (1) CAD in [place] artery Current Visit: Yes Status: Acute [place] CAD. Recent episode of unresponsiveness and abnormal ECG. Patient taken to cardiac catheterization lab on 07/04/2018, which resulted in PCI to the RCA. Residual significant CAD described in the left main and LAD. Surgery consulted, patient gained risk prohibitive. Staged PCI has been discussed. For now, we will continue appropriate medical therapy. Given his frail condition and multiple comorbidities, his prognosis appears to be poor. I am not certain that complete revascularization would effectively change this. Recommend continue aspirin, Plavix without interruption. Continue statin, PALOMA inhibitor, and beta francine as tolerated. Ischemic cardiomyopathy noted, CHF precautions should be taken. Your medical management regarding multiple comorbidities. (2) Ischemic cardiomyopathy Current Visit: Yes Status: Acute Discussion w patient/family: The assessment and plan as outlined above was discussed with the patient and/or family members who expressed understanding and agreement. All questions were answered. Thank you for involving us in the care of your patient. Please call with any questions. Subjective Principal diagnosis: Acute on chronic respiratory failure Interval history: This is my first encounter with patient. Patient is very frail-appearing, chronically ill-appearing. Minimal response to questions. Overall, he does seem to be comfortable. Chart reviewed. Recent PCI to RCA. Significant residual CAD described. EF 40%. Surgery considered, the patient deemed risk prohibitive. High risk PCI discussed versus ongoing medical therapy. Objective Vital Signs, Last 4 Hours Temp Pulse Resp BP Pulse Ox 07/07/18 09:59 97.9 F 07/07/18 09:00 70 18 132/82 98 07/07/18 08:00 98.1 F 68 18 132/78 98 07/07/18 07:00 70 General: Other (Frail, chronically ill-appearing) HEENT: Other (Mouth open, dry mucous membranes.) Neck: No JVD Cardiac: Other (Regular rate and rhythm, no murmurs) Lungs: Other (Shallow, poor effort.) Neuro: Other (Decreased responsiveness, somewhat opens eyes, does not answer questions.) Abdomen: Other (Thin. Soft.) Musculoskeletal: No Chest Wall Tenderness Extremities: No Clubbing, No Cyanosis Results 07/07/18 03:45 07/07/18 03:45 Lab Results 07/06/18 07/07/18 07/07/18 14:00 03:45 03:45 WBC 7.1 Hgb 10.4 L Hct 32.1 L Plt Count 165 Sodium 138 Potassium 3.9 4.2 Chloride 105 Carbon Dioxide 22 L BUN 9 Creatinine 0.73 Glucose 97 Calcium 6.9 L Magnesium 1.6 Total Bilirubin 0.6 AST 80 H ALT 31 Alkaline Phosphatase 70 - Imaging and Cardiology Echo: report reviewed - EKG Interpretation EKG results cardiology: personally reviewed - VTE Documentation of Mechanical Device: Intermittent pneumatic compression device Consult Discharge Plan - Plan Referrals: Angel Ruggiero DO [Primary Care Provider] -
[2018-07-07 14:38] LABS: VBG Ionized Calcium 0.91 mmol/L (1.15-1.35)
[2018-07-07] MEDS: Clindamycin 600 MG/50 ML 600 MG/50 ML IV.SOLN IVPB SCH ×2 (15:53→23:06)
[2018-07-07] MEDS: Thiamine (B-1) 100 MG, Folic Acid 1 MG, MVI, adult with vitamin K 10 ML in 0.9 % Sodi... IVPB SCH (16:52)
[2018-07-08 04:00] LABS: Basophils % 0.1 %; Eosinophils # 0.1 K/mcL (0.0-0.6); Eosinophils % 1.2 %; Hematocrit 33.5 % (37.5-50.1); Hemoglobin 10.8 g/dL (12.9-16.9); Immature Granulocytes % 0.7 % (0-4); Lymphocytes % 13.5 %; Mean Corpuscular HGB Conc 32.2 g/dL (31.6-35.5); Mean Corpuscular Hemoglobin 27.9 pg (28.0-33.3); Mean Corpuscular Volume 86.6 fL (83.0-100.0); Mean Platelet Volume 9.6 fL (9.4-12.4); Monocytes # 0.8 K/mcL (0.0-1.3); Monocytes % 10.5 %; Neutrophils # 5.4 K/mcL (1.6-8.9); Platelet Count 204 K/mcL (140-400); Red Blood Count 3.87 M/mcL (4.19-5.50); Red Cell Distribution Width 15.4 % (11.5-14.5)
[2018-07-08 04:22] LABS: Alanine Aminotransferase 28 Units/L (7-52); Albumin 3.1 g/dL (3.5-5.7); Albumin/Globulin Ratio 1.3 (1.1-2.2); Alkaline Phosphatase 67 Units/L (34-104); Aspartate Amino Transferase 54 Units/L (13-39); BUN/Creatinine Ratio 17 (6-26); Bilirubin,Direct 0.2 mg/dL (0.0-0.2); Bilirubin,Indirect 0.5 mg/dL (0.0-1.2); Bilirubin,Total 0.7 mg/dL (0.3-1.0); Blood Urea Nitrogen 11 mg/dL (8-23); Calcium 7.2 mg/dL (8.6-10.3); Carbon Dioxide 27 mEq/L (23-29); Chloride 102 mEq/L (98-107); Globulin 2.3 g/dL (2.4-3.5); Glucose 92 mg/dL (70-105); Magnesium 1.5 mg/dL (1.6-2.6); Osmolality,Calculated 285 (280-300); Potassium 3.8 mEq/L (3.5-5.1); Sodium 138 mEq/L (136-145); Total Protein 5.4 g/dL (6.4-8.9); eGFR For Non-African Americans > 60 (> 60)
[2018-07-08] MEDS: *HR* Heparin 5,000 UNIT/ML VIAL SQ SCH ×3 (06:09→21:43)
[2018-07-08] MEDS: levETIRAcetam 250 MG TABLET PO SCH ×2 (06:10→17:20)
[2018-07-08] MEDS: Metoprolol XL (24 HR) Succ 25 MG TAB.ER.24H PO SCH (08:15)
[2018-07-08] MEDS: Finasteride 5 MG TABLET PO SCH (08:15)
[2018-07-08] MEDS: Aspirin 81 MG TAB.CHEW PO SCH (08:15)
[2018-07-08] MEDS: Lactulose Oral Soln 20 GM/30 ML UDC PO SCH (08:15)
[2018-07-08] MEDS: Multivit/Ca/Min/Fe/FA 1 TAB TABLET PO SCH (08:15)
[2018-07-08] MEDS: Clindamycin 600 MG/50 ML 600 MG/50 ML IV.SOLN IVPB SCH ×3 (08:16→21:45)
--- NOTE | 2018-07-08 09:18 | Pulmonology Progress Note ---
<Payton Brown - Last Filed: 07/08/18 09:15> Date of Encounter: 07/08/18 Time of Encounter: 09:15 Assessment and Plan (1) Acute hepatic encephalopathy Current Visit: Yes Status: Acute Pt's initial ammonia level was 290, and head CT was negative for acute intracranial abnormality. Lactulose was started. Ammonia level now WNL. Continue lactulose and monitor ammonia level. (2) Alcohol withdrawal Current Visit: Yes Status: Acute Pt had an elevated etoh of 11 on presentation to the ER. Upon extubation, placed on CIWA protocol for two days. CIWA d/c'd 07/07/18. Qualifiers: Complication of substance-induced condition: with delirium Qualified Code(s ): F10.231 - Alcohol dependence with withdrawal delirium (3) Acute respiratory failure with hypoxia Current Visit: Yes Status: Acute Pt spent one day on ventilator and was extubated on 07/05/18, which he tolerated well. Continues to maintain saturation WNL. (4) Seizure disorder Current Visit: No Status: Chronic Patient was changed to PO Keppra after extubation. Has not had any seizures while inpatient. Maintain seizure precautions. (5) GERD (gastroesophageal reflux disease) Current Visit: Yes Status: Chronic Prilosec 20mg PO QD Qualifiers: Esophagitis presence: esophagitis presence not specified Qualified Code(s) : K21.9 - Gastro-esophageal reflux disease without esophagitis (6) Dementia Current Visit: Yes Status: Chronic Restart Aricept 10mg QHS. Qualifiers: Dementia type: unspecified type Dementia behavioral disturbance: without behavioral disturbance Qualified Code(s): F03.90 - Unspecified dementia without behavioral disturbance (7) BPH (benign prostatic hyperplasia) Current Visit: Yes Status: Chronic Continue home Proscar. Qualifiers: Lower urinary tract symptom presence: unspecified whether lower urinary tract symptoms present Qualified Code(s): N40.0 - Benign prostatic hyperplasia without lower urinary tract symptoms (8) Unstable angina Current Visit: Yes Status: Acute Pt had 8 stents in the past, and received his 9th on 07/04/18 in the RCA with PTCA after 99% stenosis was discovered. He still has 60% left main and 80% in- stent stenosis of his LAD. He was deemed not a candidate for open heart surgery at this time. Pt stated he did not wish to have CABG surgery on 07/05/18. Continue to monitor. (9) Acute on chronic respiratory failure with hypoxia Current Visit: Yes Status: Acute Pt emergently intubated upon arrival to ED on 07/04/18. Extubated on 07/05/18. Tracheostomy scar. Continue to monitor. (10) Hypothyroidism Current Visit: Yes Status: Chronic Continue PO Synthroid. Qualifiers: Hypothyroidism type: unspecified Qualified Code(s): E03.9 - Hypothyroidism , unspecified (11) Large B-cell lymphoma Current Visit: Yes Status: Chronic T-cell Lymphoma, stage IV, status post-chemotherapy, radiation, and two years of Rituxan maintenance. Nonspecific focal areas of ground-glass opacities in medial RUL, could be related to focal alveolitis, new compared to previous study in April 2018. Pt is followed by [facility]. (12) Severe protein-calorie malnutrition Current Visit: Yes Status: Acute BMI 21, Speech consulted - recommends pureed diet with honey-thickened liquids. He continues to have issues while swallowing and frequently requires suctioning. Maintain pureed diet with assist and keep HOB elevated while eating with frequent suctioning available as needed. (13) DVT prophylaxis Current Visit: Yes Status: Acute Heparin SQ TID Subjective Principal diagnosis: Acute on chronic respiratory failure Interval history: Transfer to Telemetry - Spoke with Dr. Bonner, hospitalist at 0912. Pt is a 73 year old male that presented to the ED on 07/04/18 in acute respiratory failure and unresponsive, was emergently intubated. His EKG showed ST depressions consistent with ischemia and he was taken to the laborer driver and had a stent placed by PTCA in his RCA. Pt was extubated yesterday and was able to maintain saturation all day and overnight. Pt was on CIWA protocol for two days, requiring 4 separate doses of Ativan for hallucinations and shakiness. CIWA was d/c'd 07/07/18. There was some concern for aspiration PNA, but CXR shows bibasilar signs consistent with atelactasis. Levaquin was initially started but pt had increased confusion so this was changed to Clindamycin - which can be d/c 'd once BC are negative 48hrs+. Speech was consulted and recommended pureed diet with honey-thickened liquids which he tolerates fairly, although requires frequent suctioning. Pt was asked about possibility for CABG surgery and stated he was not interested in that procedure at this time, and was deemed not a good candidate by CT Surgery. SW has been consulted and states that he has services at home including a [employer] and long term aide, as well as connection to [facility]. Palliative is consulted for goals of care. Objective PUL Vital signs: Last Vital Signs Temp 98.9 F 07/08/18 08:21 Pulse 60 07/08/18 08:00 Resp 19 07/08/18 08:00 BP 101/54 07/08/18 08:00 Pulse Ox 94 07/08/18 08:00 General appearance: no acute distress Eyes: nonicteric ENT: oropharynx moist Effort: normal Auscultation: bilateral: clear, diminished breath sounds (lower lung rios) Cardiovascular: regular rate and rhythm Gastrointestinal: normoactive bowel sounds Integumentary: other (posterior right thoracic bruising noted over T6-8 area, 3cm) Extremities: no cyanosis other (confused, but will follow commands and answer questions) other (confused, but oriented to self) Results - Laboratory Findings CBC and BMP: 07/08/18 03:45 07/08/18 03:45 ABG ABG pH 7.41 pH Units (7.32-7.45) 07/05/18 05:08 ABG pCO2 38 mmHg (35-45) 07/05/18 05:08 ABG pO2 138 mmHg (85-104) H 07/05/18 05:08 ABG O2 Saturation 99 % (95-98) H 07/05/18 05:08 PT/INR, D-dimer PT 16.4 Seconds (9.4-12.1) H 07/06/18 03:55 Abnormal lab findings: Abnormal lab results RBC 3.87 M/mcL (4.19-5.50) L 07/08/18 03:45 Hgb 10.8 g/dL (12.9-16.9) L 07/08/18 03:45 Hct 33.5 % (37.5-50.1) L 07/08/18 03:45 MCH 27.9 pg (28.0-33.3) L 07/08/18 03:45 RDW 15.4 % (11.5-14.5) H 07/08/18 03:45 Nucleated RBCs/100 WBC 0.2 /100 WBC (0) H 07/04/18 14:39 PT 16.4 Seconds (9.4-12.1) H 07/06/18 03:55 ABG pO2 138 mmHg (85-104) H 07/05/18 05:08 ABG O2 Saturation 99 % (95-98) H 07/05/18 05:08 Creatinine 0.65 mg/dL (0.70-1.30) L 07/08/18 03:45 Calcium 7.2 mg/dL (8.6-10.3) L 07/08/18 03:45 Venous Ioniz Calcium 0.91 mmol/L (1.15-1.35) L 07/07/18 14:35 Magnesium 1.5 mg/dL (1.6-2.6) L 07/08/18 03:45 AST 54 Units/L (13-39) H 07/08/18 03:45 Serum Total Protein 5.4 g/dL (6.4-8.9) L 07/08/18 03:45 Albumin 3.1 g/dL (3.5-5.7) L 07/08/18 03:45 Globulin 2.3 g/dL (2.4-3.5) L 07/08/18 03:45 Procalcitonin 0.25 ng/mL (<=0.07) H 07/05/18 10:52 TSH < 0.010 mcIU/mL (0.340-5.600) L 07/04/18 14:34 Urine Color Red (Yellow) A 07/04/18 20:25 Urine Clarity Cloudy (Clear) A 07/04/18 20:25 Ur Specific [place] > 1.030 (1.010-1.025) H 07/04/18 20:25 Urine Blood Large (Negative) H 07/04/18 20:25 Ur Leukocyte Esterase Small (Negative) H 07/04/18 20:25 Urine Microscopic RBC TNTC per hpf (0-3) H 07/04/18 20:25 Urine Microscopic WBC 5-15 per hpf (0-3) H 07/04/18 20:25 Ur Culture Indicated? YES (NO) A 07/04/18 20:25 Salicylates < 2.5 mg/dL (15.0-30.0) L 07/04/18 14:34 Acetaminophen < 10 mcg/mL (10-20) L 07/04/18 14:34 U Benzodiazepines Scrn Positive ng/mL (Vxlfob=632) H 07/04/18 14:31 Ethyl Alcohol 11 mg/dL (Less than 10) H 07/04/18 14:34 - Microbiology Findings Microbiology Findings: Microbiology, Last 48 Hours 07/04/18 20:25 Urine Culture - Final Urine,Clean Catch No significant growth. - Clinical Findings Intake & Output: Intake & Output 07/07/18 07/08/18 07/08/18 23:59 07:59 15:59 Intake Total 621.2 / 621.2 50 / 50 Output Total 175 / 175 185 / 185 Balance 446.2 / 446.2 -135 / -135 - VTE Documentation of Mechanical Device: Intermittent pneumatic compression device Consult Discharge Plan - Plan Referrals: Angel Ruggiero DO [Primary Care Provider] - <Kera Carty - Last Filed: 07/08/18 10:48> Date of Encounter: 07/08/18 Objective PUL Vital signs: Last Vital Signs Temp 98.9 F 07/08/18 08:21 Pulse 60 07/08/18 08:00 Resp 19 07/08/18 08:00 BP 101/54 07/08/18 08:00 Pulse Ox 94 07/08/18 08:00 Results - Laboratory Findings CBC and BMP: 07/08/18 03:45 07/08/18 03:45 ABG ABG pH 7.41 pH Units (7.32-7.45) 07/05/18 05:08 ABG pCO2 38 mmHg (35-45) 07/05/18 05:08 ABG pO2 138 mmHg (85-104) H 07/05/18 05:08 ABG O2 Saturation 99 % (95-98) H 07/05/18 05:08 PT/INR, D-dimer PT 16.4 Seconds (9.4-12.1) H 07/06/18 03:55 Abnormal lab findings: Abnormal lab results RBC 3.87 M/mcL (4.19-5.50) L 07/08/18 03:45 Hgb 10.8 g/dL (12.9-16.9) L 07/08/18 03:45 Hct 33.5 % (37.5-50.1) L 07/08/18 03:45 MCH 27.9 pg (28.0-33.3) L 07/08/18 03:45 RDW 15.4 % (11.5-14.5) H 07/08/18 03:45 Nucleated RBCs/100 WBC 0.2 /100 WBC (0) H 07/04/18 14:39 PT 16.4 Seconds (9.4-12.1) H 07/06/18 03:55 ABG pO2 138 mmHg (85-104) H 07/05/18 05:08 ABG O2 Saturation 99 % (95-98) H 07/05/18 05:08 Creatinine 0.65 mg/dL (0.70-1.30) L 07/08/18 03:45 Calcium 7.2 mg/dL (8.6-10.3) L 07/08/18 03:45 Venous Ioniz Calcium 0.91 mmol/L (1.15-1.35) L 07/07/18 14:35 Magnesium 1.5 mg/dL (1.6-2.6) L 07/08/18 03:45 AST 54 Units/L (13-39) H 07/08/18 03:45 Serum Total Protein 5.4 g/dL (6.4-8.9) L 07/08/18 03:45 Albumin 3.1 g/dL (3.5-5.7) L 07/08/18 03:45 Globulin 2.3 g/dL (2.4-3.5) L 07/08/18 03:45 Procalcitonin 0.25 ng/mL (<=0.07) H 07/05/18 10:52 TSH < 0.010 mcIU/mL (0.340-5.600) L 07/04/18 14:34 Urine Color Red (Yellow) A 07/04/18 20:25 Urine Clarity Cloudy (Clear) A 07/04/18 20:25 Ur Specific [place] > 1.030 (1.010-1.025) H 07/04/18 20:25 Urine Blood Large (Negative) H 07/04/18 20:25 Ur Leukocyte Esterase Small (Negative) H 07/04/18 20:25 Urine Microscopic RBC TNTC per hpf (0-3) H 07/04/18 20:25 Urine Microscopic WBC 5-15 per hpf (0-3) H 07/04/18 20:25 Ur Culture Indicated? YES (NO) A 07/04/18 20:25 Salicylates < 2.5 mg/dL (15.0-30.0) L 07/04/18 14:34 Acetaminophen < 10 mcg/mL (10-20) L 07/04/18 14:34 U Benzodiazepines Scrn Positive ng/mL (Gkzbgv=418) H 07/04/18 14:31 Ethyl Alcohol 11 mg/dL (Less than 10) H 07/04/18 14:34 - Microbiology Findings Microbiology Findings: Microbiology, Last 48 Hours 07/04/18 20:25 Urine Culture - Final Urine,Clean Catch No significant growth. - Clinical Findings Intake & Output: Intake & Output 07/07/18 07/08/18 07/08/18 23:59 07:59 15:59 Intake Total 621.2 / 621.2 50 / 50 Output Total 175 / 175 185 / 185 Balance 446.2 / 446.2 -135 / -135 - Attending Attestation I examined this patient and my medical decision-making was reviewed with the Resident Physician. I agree with the documented findings, disposition and treatment plan as described except to the extent set forth below. Patient seen and examined. Labs, radiology, chart personally reviewed. 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 Pulmonary: Acceptable oxygenation and ventilation. Encouraged incentive spirometry and continue treatment for possible aspiration pneumonia. Cardiovascular: stable and cardiology follow-up. GI: Nutrition per dietary and GI prophylaxis per routine. Aspiration precaution. Heme: DVT prophylaxis per routine ID: Continue antibiotics and plan to de-escalation Renal; urine out put and renal funtion reviewed Endorcine: blood glucose is monitored Lines: all lines checked and no evidence of infections Skin: skin care to prevent pressure ulcers per nursing routine care
[2018-07-08] MEDS ORDERED: Naloxone 0.4 MG/ML INJ IVP PRN (10:13)
[2018-07-08] MEDS ORDERED: Ipratropium/Albuterol Neb 3 ML IH PRN (10:13)
[2018-07-08] MEDS ORDERED: Acetaminophen 325 MG TABLET PO PRN (10:13)
[2018-07-08] MEDS ORDERED: *HR* LORazepam 2 MG/ML VIAL IVP PRN (10:13)
--- NOTE | 2018-07-08 11:54 | Cardiology Progress Note ---
Date of Encounter: 07/08/18 Time of Encounter: 11:52 Assessment and Plan (1) CAD in [place] artery Current Visit: Yes Status: Acute [place] CAD. Recent episode of unresponsiveness and abnormal ECG. Patient taken to cardiac catheterization lab on 07/04/2018, which resulted in PCI to the RCA. Residual significant CAD described in the left main and LAD. Surgery consulted, patient deemed risk prohibitive. Staged PCI has been discussed. Patient's overall condition remains fragile. I would favor focusing on his overall strength and multiple comorbidities. If he is able to have a functional recovery, we could consider complete revascularization in the future. At this point, medical therapy is most appropriate. Recommend continue aspirin, Plavix without interruption for one year. Continue statin, PALOMA inhibitor, and beta francine as tolerated. Ischemic cardiomyopathy noted, CHF precautions should be taken. Your medical management regarding multiple comorbidities. No further immediate cardiology recommendations. We will sign off. Please call us with any questions or concerns. Recommend outpatient followup. (2) Ischemic cardiomyopathy Current Visit: Yes Status: Acute Discussion w patient/family: The assessment and plan as outlined above was discussed with the patient and/or family members who expressed understanding and agreement. All questions were answered. Thank you for involving us in the care of your patient. Please call with any questions. Subjective Principal diagnosis: Acute on chronic respiratory failure Interval history: Patient seen in the ICU earlier today. Remains frail. He was sitting up in bed. Shallow breathing noted. Does not respond to questions. Vital signs appear to be stable. Objective Vital Signs, Last 4 Hours Temp Pulse Resp BP Pulse Ox 07/08/18 10:48 98.3 F 70 17 102/63 94 07/08/18 10:45 98.3 F 70 17 102/63 94 07/08/18 08:21 98.9 F 07/08/18 08:00 60 19 101/54 94 General: Other (Chronically ill-appearing, frail) HEENT: Atraumatic, Normocephaly, Mucus Membranes Moist Neck: No JVD, Normal carotid pulses Cardiac: Reg Rate and Rhythm, Normal S1 and S2, No Murmur Lungs: Other (Shallow, poor effort) Neuro: Other (Does not verbalize responses to questions.) Abdomen: Soft, Non-Tender Skin: No rashes noted on visualized skin Musculoskeletal: No Chest Wall Tenderness Extremities: No Clubbing, No Cyanosis Results 07/08/18 03:45 07/08/18 03:45 Lab Results 07/08/18 07/08/18 03:45 03:45 WBC 7.3 Hgb 10.8 L Hct 33.5 L Plt Count 204 Sodium 138 Potassium 3.8 Chloride 102 Carbon Dioxide 27 BUN 11 Creatinine 0.65 L Glucose 92 Calcium 7.2 L Magnesium 1.5 L Total Bilirubin 0.7 AST 54 H ALT 28 Alkaline Phosphatase 67 - Imaging and Cardiology Echo: report reviewed Cardiac cath: report reviewed - VTE Documentation of Mechanical Device: Intermittent pneumatic compression device Consult Discharge Plan - Plan Referrals: Angel Ruggiero DO [Primary Care Provider] -
[2018-07-08] MEDS ORDERED: Thiamine (B-1) 100 MG, Folic Acid 1 MG, MVI, adult with vitamin K 10 ML in 0.9 % Sodi... IVPB SCH (18:00)
[2018-07-09] MEDS: Clindamycin 600 MG/50 ML 600 MG/50 ML IV.SOLN IVPB SCH ×3 (03:07→18:18)
[2018-07-09] MEDS: levETIRAcetam 250 MG TABLET PO SCH ×2 (06:11→18:18)
[2018-07-09] MEDS: *HR* Heparin 5,000 UNIT/ML VIAL SQ SCH ×3 (06:14→22:50)
[2018-07-09] MEDS: Aspirin 81 MG TAB.CHEW PO SCH (11:17)
[2018-07-09] MEDS: Metoprolol XL (24 HR) Succ 25 MG TAB.ER.24H PO SCH (11:18)
[2018-07-09] MEDS: Multivit/Ca/Min/Fe/FA 1 TAB TABLET PO SCH (11:18)
[2018-07-09] MEDS: Finasteride 5 MG TABLET PO SCH (11:19)
[2018-07-09] MEDS: Lactulose Oral Soln 20 GM/30 ML UDC PO SCH (11:19)
--- NOTE | 2018-07-09 13:32 | Electrocardiograph Report ---
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
--- NOTE | 2018-07-09 13:38 | Electrocardiograph Report ---
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
--- NOTE | 2018-07-09 13:39 | Electrocardiograph Report ---
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
--- NOTE | 2018-07-09 13:40 | Electrocardiograph Report ---
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
--- NOTE | 2018-07-09 13:42 | Electrocardiograph Report ---
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
--- NOTE | 2018-07-09 13:43 | Electrocardiograph Report ---
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
--- NOTE | 2018-07-09 17:25 | Internal Med Progress Note ---
Hospitalist Progress Note - Encounter Date of Encounter: 07/09/18 Time of Encounter: 11:00 - Subjective Interval History: Patient found unresponsive and was intubated and managed in the ICU. Patient now extubated and was treated for acute hepatic encephalopathy with increased ammonia levels that are now within normal limits. In addition, patient was also evaluated for unstable angina status post PCI to the RCA on 07/04/18; cardiology deems patient as a high risk for CABG therefore no further intervention. Patient also with dizziness and fall therefore physical therapy has been consulted and awaiting recommendations - Exam Vitals: Temp Pulse Resp BP Pulse Ox 98.2 F 58 14 129/64 98 07/09/18 15:41 07/09/18 15:41 07/09/18 15:41 07/09/18 15:41 07/09/18 15:41 Exam: Gen.: Nonacute distress, alert and oriented 3 ENT: Mucosal membranes moist Respiratory: Lungs are clear to auscultation bilaterally without any wheezing rhonchi or rales Cardiovascular: Normal S1 and S2 regular rate rhythm no murmurs rubs or gallops Abdomen: Soft, nontender and nondistended with positive bowel sounds Extremities: No lower extremity edema Skin: Normal color - Assessment and Plan (1) Fall Current Visit: Yes Status: Acute Assessment and Plan: Patient reported a fall in the ICU and unsteady on his feet per nursing staff Awaiting physical therapy recommendations for home safety (2) CAD in [place] artery Current Visit: Yes Status: Acute Assessment and Plan: Cardiology consulted and cardiac catheterization on 07/04/18 resulted in a PCI to the RCA Patient determined to be high risk for CABG procedure therefore not recommended Continue statin, PALOMA inhibitor, and beta francine as tolerated. (3) Ischemic cardiomyopathy Current Visit: Yes Status: Acute Assessment and Plan: As above (4) Acute hepatic encephalopathy Current Visit: Yes Status: Acute Assessment and Plan: Patient with ammonia on presentation at 290 which has now returned to normal limits after treatment with lactulose (5) Acute on chronic respiratory failure with hypoxia Current Visit: Yes Status: Acute Assessment and Plan: Patient was intubated and managed in the ICU but now extubated and has been transferred to the medical surgical floor (6) Alcohol withdrawal Current Visit: Yes Status: Acute Assessment and Plan: She had been on CIWA but no longer requiring (7) DVT prophylaxis Current Visit: Yes Status: Acute Assessment and Plan: Heparin subcutaneous - Time Spent with Patient Total time spent is greater than 50% in coordination of care (as documented) at patient's floor/unit and/or counseling patient: Internal Medicine: Result - Labs CBC & Chem 7: 07/08/18 03:45 07/08/18 03:45 - ABG Interpretation ABG results: ABG ABG pH 7.41 pH Units (7.32-7.45) 07/05/18 05:08 ABG pCO2 38 mmHg (35-45) 07/05/18 05:08 ABG pO2 138 mmHg (85-104) H 07/05/18 05:08 ABG O2 Saturation 99 % (95-98) H 07/05/18 05:08 PT/INR, D-dimer PT 16.4 Seconds (9.4-12.1) H 07/06/18 03:55 - VTE Documentation of Mechanical Device: Intermittent pneumatic compression device Consult Discharge Plan - Plan Referrals: Angel Ruggiero DO [Primary Care Provider] - (6) Alcohol withdrawal Qualifiers: Complication of substance-induced condition: with delirium Qualified Code(s) : F10.231 - Alcohol dependence with withdrawal delirium
[2018-07-10] MEDS: Clindamycin 600 MG/50 ML 600 MG/50 ML IV.SOLN IVPB SCH (03:35)
[2018-07-10 03:55] LABS: Basophils % 0.4 %; Eosinophils # 0.2 K/mcL (0.0-0.6); Hematocrit 31.5 % (37.5-50.1); Hemoglobin 10.4 g/dL (12.9-16.9); Immature Granulocytes % 1.1 % (0-4); Lymphocytes # 1.6 K/mcL (0.6-4.6); Lymphocytes % 28.3 %; Mean Corpuscular Hemoglobin 28.2 pg (28.0-33.3); Mean Corpuscular Volume 85.4 fL (83.0-100.0); Monocytes # 0.7 K/mcL (0.0-1.3); Monocytes % 12.1 %; Neutrophils # 3.1 K/mcL (1.6-8.9); Platelet Count 224 K/mcL (140-400); Red Blood Count 3.69 M/mcL (4.19-5.50); Red Cell Distribution Width 15.3 % (11.5-14.5); Segmented Neutrophils % 55.1 %
[2018-07-10 04:13] LABS: Alanine Aminotransferase 23 Units/L (7-52); Albumin 3.1 g/dL (3.5-5.7); Albumin/Globulin Ratio 1.4 (1.1-2.2); Alkaline Phosphatase 63 Units/L (34-104); Aspartate Amino Transferase 35 Units/L (13-39); BUN/Creatinine Ratio 13 (6-26); Bilirubin,Total 0.5 mg/dL (0.3-1.0); Blood Urea Nitrogen 10 mg/dL (8-23); Calcium 6.5 mg/dL (8.6-10.3); Carbon Dioxide 26 mEq/L (23-29); Chloride 108 mEq/L (98-107); Globulin 2.2 g/dL (2.4-3.5); Glucose 101 mg/dL (70-105); Osmolality,Calculated 285 (280-300); Potassium 3.1 mEq/L (3.5-5.1); Sodium 138 mEq/L (136-145); Total Protein 5.3 g/dL (6.4-8.9); eGFR For Non-African Americans > 60 (> 60)
[2018-07-10] MEDS: levETIRAcetam 250 MG TABLET PO SCH ×2 (05:58→17:02)
[2018-07-10] MEDS: *HR* Heparin 5,000 UNIT/ML VIAL SQ SCH ×2 (05:58→13:02)
[2018-07-10] MEDS ORDERED: Calcium Gluconate 2,000 MG in 0.9 % Sodium Chloride 100 ML IVPB ONE (07:43)
--- NOTE | 2018-07-10 07:46 | Internal Med Progress Note ---
<Lindsay Quintanilla N - Last Filed: 07/10/18 14:54> Hospitalist Progress Note - Encounter Date of Encounter: 07/10/18 Time of Encounter: 07:46 - Subjective Interval History: Mr. David is a 73-year old male who presented to the ED on 07/04/2018 in respiratory arrest, requiring intubation. Initial workup in the ED included head CT and chest CTA. Head CT was negative for acute abnormality; however, chest CTA showed left lower lung findings compatible with aspiration. Further CTA findings included nonspecific focal areas of ground-glass opacity in the medial right upper lobe and lower lobes possibly related to focal alveolitis, which were new compared to previous study in April 2018. EKG performed in the ED showed afib with posterior ischemia, and repeat EKG showed ST deprssions. He underwent cardiac catheterization, which demonstrated 99% stenosis of dRCA and R PDA, which successfully underwent PCI. He was found to have extensive coronary disease otherwise, including in-stent restenosis; however, he was deemed a poor candidate for CABG. On admission to the ICU, he was also noted to have acute hepatic encephalopathy with an elevated ammonia and was started on lactulose. He was started on empiric antibiotic therapy to cover for HAPNA/ aspiration PNA due to recent hospitalization and CXR findings concerning for aspiration. He was successfully extubated after ~1 day. He did demonstrate dizziness/unsteadiness while in the ICU and reportedly had a fall due to this. He has since been transferred to the floor for further management. Cardiology has signed off on this patient. They recommended followup with cardiology as an outpatient and continuation of aspirin 81mg and plavix 75mg for one year. Cardiology recommendations also included continuation of atorvastatin 40mg PO HS, lisinopriol 2.5m PO QD, and metoprolol XL 12.5mg QD. Palliative care team has been consulted to help determine goals of care. On evaluation today, the patient states that he feels well and would like to leave. He states that his son is in the hospital in [place] and expresses that he would like to be there. Due to his reported unsteadiness when out of bed, physical and occupational therapy has been consulted, and their evaluation are pending. Patient denies any complaints or concerns at this time. - Exam Vitals: Temp Pulse Resp BP Pulse Ox 97.9 F 60 16 121/65 97 07/10/18 07:02 07/10/18 07:02 07/10/18 07:02 07/10/18 07:02 07/10/18 07:02 Exam: * General: Ill-appearing male in no acute distress. He is awake and responds appropriately to questions. * HEENT: Atraumatic and normocephalic. * Cardiovascular: Regular rate and rhythm. S1 and S2 present. No murmurs, gallops, or rubs. * Respiratory: Clear bilaterally. Chest rises and falls symmetrically. * Gastrointestinal: Active bowel sounds. Abdomen is soft and nontender. * Extremities: No clubbing, cyanosis, or edema present. - Assessment and Plan (1) Fall Current Visit: Yes Status: Acute Assessment and Plan: Patient is reportedly unsteady when ambulating, and had a fall while in the ICU. He is awaiting evaluation by physical and occupational therapy. Suspect that he would likely benefit from ECF or rehab placement after discharge due to his multiple comorbidities and recent fall. Will continue to utilize assistance when out of bed and while ambulating. Patient currently has bed alarm. (2) Ischemic cardiomyopathy Current Visit: Yes Status: Acute Assessment and Plan: Patient is s/p LHC and stent placement. He is not currently a candidate for CABG due to multiple comorbidities. Per cardiology, patient is to continue aspirin 81mg and plavix 75mg for one year. He is also to continue atorvastatin 40mg PO HS, lisinopril 2.5mg POQD, and metoprolol XL 12.5mg QD. He is planned for outpatient cardiology follow up with potential consideration for CABG or other intervention if his functional status is improved. (3) CAD in [place] artery Current Visit: Yes Status: Acute Assessment and Plan: Plan as detailed above. (4) Acute on chronic respiratory failure with hypoxia Current Visit: Yes Status: Acute Assessment and Plan: Patient was successfully extubated in the ICU after approximately 1 day. He has tolerated room air well, with oxygen saturation WNL. He does have oxygen available to him at home. Will continue current supportive management PRN. (5) Acute hepatic encephalopathy Current Visit: Yes Status: Resolved (6) Alcohol withdrawal Current Visit: Yes Status: Acute Assessment and Plan: At time of admission, patient was placed on CIWA protocol and did require ativan for withdrawal symptoms. CIWA protocol has since been discontinued, and patient has demonstrated no withdrawal signs. Will continue to monitor closely and address as needed. (7) DVT prophylaxis Current Visit: Yes Status: Acute Assessment and Plan: Heparin 5000units SQ Q8H. (8) Aspiration pneumonia Current Visit: Yes Status: Suspected Assessment and Plan: Based on initial chest xray, there was concern for possible aspiration pneumonia. Day #6 of clindamycin. Plan for a total 7 day course of antibiotic therapy. - Time Spent with Patient Total time spent is greater than 50% in coordination of care (as documented) at patient's floor/unit and/or counseling patient: Internal Medicine: Result - Labs CBC & Chem 7: 07/10/18 03:42 07/10/18 03:42 Labs: Short CBC 07/10/18 Range/Units 03:42 WBC 5.6 (4.3-11.1) K/mcL Hgb 10.4 L (12.9-16.9) g/dL Hct 31.5 L (37.5-50.1) % Plt Count 224 (140-400) K/mcL Neutrophils # 3.1 (1.6-8.9) K/mcL BMP 07/10/18 03:42 Sodium 138 Potassium 3.1 L Chloride 108 H Carbon Dioxide 26 BUN 10 Creatinine 0.75 Glucose 101 Calcium 6.5 L Liver Function 07/10/18 Range/Units 03:42 Total Bilirubin 0.5 (0.3-1.0) mg/dL AST 35 (13-39) Units/L ALT 23 (7-52) Units/L Alkaline Phosphatase 63 (34-104) Units/L Albumin 3.1 L (3.5-5.7) g/dL - ABG Interpretation ABG results: ABG ABG pH 7.41 pH Units (7.32-7.45) 07/05/18 05:08 ABG pCO2 38 mmHg (35-45) 07/05/18 05:08 ABG pO2 138 mmHg (85-104) H 07/05/18 05:08 ABG O2 Saturation 99 % (95-98) H 07/05/18 05:08 PT/INR, D-dimer PT 16.4 Seconds (9.4-12.1) H 07/06/18 03:55 - VTE Documentation of Mechanical Device: Intermittent pneumatic compression device Consult Discharge Plan - Plan Referrals: Angel Ruggiero DO [Primary Care Provider] - <Hector Agudelo - Last Filed: 07/10/18 15:52> Hospitalist Progress Note - Encounter Date of Encounter: 07/10/18 Time of Encounter: 10:45 - Exam Vitals: Temp Pulse Resp BP Pulse Ox 98.6 F 69 17 156/80 97 07/10/18 10:56 07/10/18 10:56 07/10/18 10:56 07/10/18 10:56 07/10/18 10:56 - Assessment and Plan (1) Acute hepatic encephalopathy Current Visit: Yes Status: Resolved (2) DVT prophylaxis Current Visit: Yes Status: Acute (3) Acute on chronic respiratory failure with hypoxia Current Visit: Yes Status: Acute (4) CAD in [place] artery Current Visit: Yes Status: Acute (5) Alcohol withdrawal Current Visit: Yes Status: Acute (6) Ischemic cardiomyopathy Current Visit: Yes Status: Acute (7) Fall Current Visit: Yes Status: Acute (8) Aspiration pneumonia Current Visit: Yes Status: Suspected - Time Spent with Patient Total time spent is greater than 50% in coordination of care (as documented) at patient's floor/unit and/or counseling patient: Internal Medicine: Result - Labs CBC & Chem 7: 07/10/18 03:42 07/10/18 03:42 Labs: Short CBC 07/10/18 Range/Units 03:42 WBC 5.6 (4.3-11.1) K/mcL Hgb 10.4 L (12.9-16.9) g/dL Hct 31.5 L (37.5-50.1) % Plt Count 224 (140-400) K/mcL Neutrophils # 3.1 (1.6-8.9) K/mcL BMP 07/10/18 03:42 Sodium 138 Potassium 3.1 L Chloride 108 H Carbon Dioxide 26 BUN 10 Creatinine 0.75 Glucose 101 Calcium 6.5 L Liver Function 07/10/18 Range/Units 03:42 Total Bilirubin 0.5 (0.3-1.0) mg/dL AST 35 (13-39) Units/L ALT 23 (7-52) Units/L Alkaline Phosphatase 63 (34-104) Units/L Albumin 3.1 L (3.5-5.7) g/dL - ABG Interpretation ABG results: ABG ABG pH 7.41 pH Units (7.32-7.45) 07/05/18 05:08 ABG pCO2 38 mmHg (35-45) 07/05/18 05:08 ABG pO2 138 mmHg (85-104) H 07/05/18 05:08 ABG O2 Saturation 99 % (95-98) H 07/05/18 05:08 PT/INR, D-dimer PT 16.4 Seconds (9.4-12.1) H 07/06/18 03:55 - Attending Attestation I saw evaluated and examined this patient and my medical decision-making was reviewed with the Resident Physician, Lindsay Quintanilla. I agree with the documented findings, disposition and treatment plan as described except to any changes set forth below. We independently had [id number] contact with the patient. 73-year-old male patient hospitalized here after being coming unresponsive. Was intubated and treated in ICU and also underwent left heart catheterization with PCI and drug-eluting stents to distal RCA and right PDA. Recommended cardiothoracic surgery evaluation but not a surgical candidate at this time. Patient will need to be on uninterrupted dual antiplatelet therapy for at least 1 year. Patient wants to leave the hospital today as as he feels much better. Says that his son is in the hospital at [place] there. When asked how he would go there, he receives that he wants to drive there. However he has not been ambulating care yet. No reported chest pain or palpitations. Patient did have episodes of fall in the ICU. On examination: Patient is awake and alert. He does appear weak. Heart sounds are normal. Prothrombin: Normal. Abdomen is soft, nontender. Coronary artery disease: Status post PCI. On dual antiplatelet therapy. Follow up with cardiology after discharge. Moderate risk for complications. Acute on chronic respiratory failure with hypoxia: Improved. Patient is extubated and maintaining sats on room air. Falls: Await physical therapy evaluation. Fall precautions. Ischemic cardiomyopathy: Medical management. Cardiology follow-up as outpatient. Continue dual antiplatelet therapy Hepatic encephalopathy: Resolved. Continue lactulose. Aspiration pneumonia: Complete 7 day antibiotic course. Palliative care has been consulted to discuss goals of care. We will follow recommendations per the discussion with family members. <Lindsay Quintanilla - Last Filed: 07/10/18 14:54> (6) Alcohol withdrawal Qualifiers: Complication of substance-induced condition: with delirium Qualified Code(s) : F10.231 - Alcohol dependence with withdrawal delirium <Hector Agudelo - Last Filed: 07/10/18 15:52> (5) Alcohol withdrawal Qualifiers: Complication of substance-induced condition: with delirium Qualified Code(s) : F10.231 - Alcohol dependence with withdrawal delirium
[2018-07-10] MEDS: Lactulose Oral Soln 20 GM/30 ML UDC PO SCH (09:13)
[2018-07-10] MEDS: Finasteride 5 MG TABLET PO SCH (09:13)
[2018-07-10] MEDS: Multivit/Ca/Min/Fe/FA 1 TAB TABLET PO SCH (09:13)
[2018-07-10] MEDS: Aspirin 81 MG TAB.CHEW PO SCH (09:13)
[2018-07-10] MEDS: Metoprolol XL (24 HR) Succ 25 MG TAB.ER.24H PO SCH (09:14)
--- NOTE | 2018-07-10 13:57 | Palliative - Consult Note ---
Date of Encounter: 07/10/18 Time of Encounter: 13:50 - Assessment and Plan (1) Advance care planning Current Visit: Yes Status: Acute Assessment and plan: Attempted goals of care discussion with pt. He has discuss medical history and problems, but has limited insight on the extent and seriousness of his condition. Denies any noncompliance with medical treatments. He is desiring to be present for discussions. I spoke with her by phone - her homecare team was present, she is difficult to understand as well. She will be having stress test tomorrow am, and will be visiting patient afterwards. Will hopefully meet up with her around 10-1030 am. She also is difficult to understand, and may also have limited insight on his serious cardiac disease, and asked me if we could "just put him on a ventilator tube or something to make his heart better". Will also discuss discharge plan. Right now he states he is going home, however, he admits to being very weak and feeling unsteady on his feet. states that they do have passport 3 1/2 hours/day and has nurse from [facility] following. (2) CAD in [place] artery Current Visit: Yes Status: Acute Assessment and plan: Cardiology consult and notes reviewed. S/P LHC with stent. Medical management only at this time. (3) Acute on chronic respiratory failure with hypoxia Current Visit: Yes Status: Acute Assessment and plan: Has been extubated and currently on room air. States he does have oxygen in place at home. 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 Last visit 04/23 - scheduled for follow up later this fall. Palliative-CN HPI - Data of Consult Consult date: 07/10/18 Requesting Physician: Hector Agudelo MD Primary Care Provider: Angel Ruggiero DO - Consult Narrative History of present illness: Mr. David is a 73 year old male who arrived to the hospital per transporation van, and collapsed at the entrance. Was found in pulmonary arrest, and was intubated and admitted to the ICU. ETOH was 11 and ammonia level upon admission was 290. Lactulose was started. He also was found to have EKG changes with ST depression , afib,posterior ischemia and interventional cardiology was notified and he was taken for cardiac cath and PCI to RCA performed.. CTA was negative for pulmonary embolus. He was initially on CIWA protocol as well. Cardiothoracic surgery was consulted and felt patient not candidate for revasculaturization. Other medical history include Lg B cell lymphoma, followed by Dr. Swift at [facility] (in remission), subdural hematoma/craniotomy - now with intermittent seizures, multiple cardiac stents, enlarge prostrate.Upon my visit, pt is awake and alert. Speech difficult to understand at times. Denies pain or discomfort at this time. Drinking coffee and appears in no distress. States he is feeling "a bit better", and wants to go home. Ammonia level has decreased to normal. Lives with , Angela, and they have 2 grown children, one in [place], and one in [place]. She was just in hospital with infection, and she has been discharged since his admission. CC: Hector Agudelo MD Past Med Surg Social Fam HX - Past Medical History Medical history: hyperlipidemia, hypertension, myocardial infarction, seizures, other Additional medical history: HEART STENTS X 8, ENLARGED PROSTATE, STOMACH ULCERS Psychiatric history: no psych history - Past Surgical History Surgical History: other Additional surgical history: BRAIN SURGERY IN 2006 TO REMOVE BLOOD CLOT, SURGERY ON STOMACH D/T BLEEDING ULCERS - Social History Smoking Status: Never smoker Smokeless Tobacco Status: No Alcohol use: none Drug use: none - Family History Mother Living Status: Hx Family Cardiac Disorders: Yes Father Living Status: Hx Family Cardiac Disorders: Yes Medications and Allergies Aspirin Enteric Coated [Aspirin EC] 81 mg PO DAILY 05/23/18 [History] Donepezil [Aricept] 10 mg PO HS 05/23/18 [History] Finasteride [Proscar] 5 mg PO DAILY 05/23/18 [History] Levothyroxine Sodium 175 mcg PO DAILY 05/23/18 [History] Omeprazole [PriLOSEC] 20 mg PO DAILY 05/23/18 [History] LevETIRAcetam [Keppra] 1,000 mg PO BID #60 tablet 05/24/18 [Rx] Albuterol Neb [Proventil Neb] 2.5 mg IH TID 07/04/18 [History] Albuterol Sulfate [Ventolin Hfa] 2 puff IH Q6H PRN 07/04/18 [History] Aspirin [Adult Aspirin] 81 mg PO DAILY 07/04/18 [History] Donepezil HCl [Aricept] 10 mg PO DAILY 07/04/18 [History] Finasteride [Proscar] 5 mg PO DAILY 07/04/18 [History] Fluticasone/Vilanterol [Breo Ellipta 200-25 Mcg INH] 1 puff IH DAILY 07/04/18 [ History] LevETIRAcetam [Keppra] 1,000 mg PO BID 07/04/18 [History] Levothyroxine [Synthroid] 175 mcg PO DAILY 07/04/18 [History] Multivit-Min/FA/Lycopen/Lutein [Centrum Silver Men Tablet] 1 tab PO DAILY [History] Omeprazole [PriLOSEC] 20 mg PO DAILY 07/04/18 [History] Tizanidine HCl 2 mg PO TID 07/04/18 [History] 3 Allergy/AdvReac Type Severity Reaction Status Date / Time Penicillins [PCN] Allergy Gastrointestinal Verified 07/05/18 09:40 Upset All systems: reviewed and no additional remarkable complaints except as stated ( weakness, poor appetite, shortness of breath with exertion, occasional chest pain, chronic back pain) Palliative Care-Exam - Constitutional Vitals: Temp Pulse Resp BP Pulse Ox 98.6 F 69 17 156/80 97 07/10/18 10:56 07/10/18 10:56 07/10/18 10:56 07/10/18 10:56 07/10/18 10:56 General appearance: Present: disheveled, thin - Head Head Exam: Present: normal inspection, normocephalic - Respiratory Respiratory exam: Present: decreased breath sounds, CTAB - Cardiovascular Cardiovascular exam: Present: +S1, +S2 - GI/Abdominal Exam GI/Abdominal exam: Present: normal bowel sounds, soft - Extremities Exam Extremities exam: Present: normal capillary refill, normal inspection - Neurological Exam Neurological exam: Present: alert, oriented X3, strengths equal and symetr throughout - Skin Skin exam: Present: dry, pallor Internal Medicine - CN: Reslt - Labs CBC & Chem 7: 07/10/18 03:42 07/10/18 03:42 Labs: Short CBC 07/10/18 Range/Units 03:42 WBC 5.6 (4.3-11.1) K/mcL Hgb 10.4 L (12.9-16.9) g/dL Hct 31.5 L (37.5-50.1) % Plt Count 224 (140-400) K/mcL Neutrophils # 3.1 (1.6-8.9) K/mcL BMP 07/10/18 03:42 Sodium 138 Potassium 3.1 L Chloride 108 H Carbon Dioxide 26 BUN 10 Creatinine 0.75 Glucose 101 Calcium 6.5 L Liver Function 07/10/18 Range/Units 03:42 Total Bilirubin 0.5 (0.3-1.0) mg/dL AST 35 (13-39) Units/L ALT 23 (7-52) Units/L Alkaline Phosphatase 63 (34-104) Units/L Albumin 3.1 L (3.5-5.7) g/dL - ABG Interpretation ABG results: ABG ABG pH 7.41 pH Units (7.32-7.45) 07/05/18 05:08 ABG pCO2 38 mmHg (35-45) 07/05/18 05:08 ABG pO2 138 mmHg (85-104) H 07/05/18 05:08 ABG O2 Saturation 99 % (95-98) H 07/05/18 05:08 PT/INR, D-dimer PT 16.4 Seconds (9.4-12.1) H 07/06/18 03:55 Consult Discharge Plan - Plan Referrals: Angel Ruggiero DO [Primary Care Provider] - Palliative Quality Palliative Quality: Screen for Code Status: NA (awaiting meeting including tomorrow), Screen for Goals of Care: NA, Screen for Pain: Yes, If Pain Regimen Started, Initiate Bowel Regimen: NA, Screen for Nausea/Vomitting: Yes Code Status: 07/04/18 18:20 Resuscitation Status: Active [RES] Routine Comment: Resuscitation Status: Full Code
[2018-07-10 16:53] VITALS: BP 128/68
--- NOTE | 2018-07-10 16:56 | Discharge Summary ---
<Lindsay Quintanilla N - Last Filed: 07/10/18 16:54> - NOTES TO OUTPATIENT PROVIDER Notes to Outpatient Provider: Patient was discharged with one additional day of cleocin for possible aspiration pneumonation. Had a fall in the ICU. PT recommended home health for therapy. Orders not resulted at time of discharge: Pending orders 07/05/18 07:00 ECG 12 lead ECG [ECG] Routine 07/11/18 04:00 BMP [Basic Metabolic Panel] AM 0400 Complete Blood Count [HEME] AM 0400 Date of Encounter: 07/10/18 Time of Encounter: 16:54 - Discharge Diagnosis (1) Fall Priority: Secondary Status: Acute Qualifiers: Encounter type: initial encounter Qualified Code(s): W19.XXXA - Unspecified fall, initial encounter (2) Ischemic cardiomyopathy Priority: Secondary Status: Acute (3) CAD in [place] artery Priority: Secondary Status: Acute (4) Acute on chronic respiratory failure with hypoxia Priority: Secondary Status: Acute (5) Acute hepatic encephalopathy Priority: Secondary Status: Resolved (6) Alcohol withdrawal Priority: Secondary Status: Acute Qualifiers: Complication of substance-induced condition: with delirium Qualified Code(s ): F10.231 - Alcohol dependence with withdrawal delirium (7) Unresponsive Priority: Primary Status: Acute (8) Aspiration pneumonia Priority: Secondary Status: Suspected Qualifiers: Aspiration pneumonia type: unspecified Laterality: unspecified laterality Lung location: unspecified part of lung Qualified Code(s): J69.0 - Pneumonitis due to inhalation of food and vomit Hospital course: Mr. David is a 73-year old male who presented to the ED on 07/04/2018 in respiratory arrest, requiring intubation. Initial workup in the ED included head CT and chest CTA. Head CT was negative for acute abnormality; however, chest CTA showed left lower lung findings compatible with aspiration. Further CTA findings included nonspecific focal areas of ground-glass opacity in the medial right upper lobe and lower lobes possibly related to focal alveolitis, which were new compared to previous study in April 2018. EKG performed in the ED showed afib with posterior ischemia, and repeat EKG showed ST deprssions. He underwent cardiac catheterization, which demonstrated 99% stenosis of dRCA and R PDA, which successfully underwent PCI. He was found to have extensive coronary disease otherwise, including in-stent restenosis; however, he was deemed a poor candidate for CABG. On admission to the ICU, he was also noted to have acute hepatic encephalopathy with an elevated ammonia and was started on lactulose. He was started on empiric antibiotic therapy to cover for HAPNA/ aspiration PNA due to recent hospitalization and CXR findings concerning for aspiration. He was successfully extubated after ~1 day. He did demonstrate dizziness/unsteadiness while in the ICU and reportedly had a fall due to this. He was transferred to the floor for further management. Physical therapy recommended home health for further therapy. Patient was advised to remain in the hospital overnight to allow for coordination of home health services. Patient was adamant about discharge, and confirmed that his would be at home to help him. Cardiology recommendations after discharge are as follows: outpatient followup and continuation of aspirin 81mg and plavix 75mg for one year. Cardiology recommendations also included continuation of atorvastatin 40mg PO HS, lisinopriol 2.5m PO QD, and metoprolol XL 12.5mg QD. Patient was instructed to follow up with his PCP in 3-5 days and to continue medications as instructed by cardiology. He was provided with an additional one day of antibiotic therapy with cleocin to complete a 7-day course. He was instructed to return to the ED if he had fever, chills, shortness of breath, chest pain, or any other concerns. Discharge discussed with: patient, nurse - Time Spent with Patient Total time spent providing and/or coordinating discharge services: - Discharge Medications Prescriptions: Atorvastatin [Lipitor] 40 mg PO HS #30 tablet Clindamycin [Cleocin] 450 mg PO TIDWM #3 capsule Clopidogrel [Plavix] 75 mg PO DAILY #30 tablet Lisinopril [Zestril] 2.5 mg PO DAILY #15 tablet Metoprolol XL (24 HR) Succ [Toprol Xl] 12.5 mg PO DAILY #30 tab.er.24h Home Medications: Donepezil [Aricept] 10 mg PO HS 05/23/18 [History] Omeprazole [PriLOSEC] 20 mg PO DAILY 05/23/18 [History] LevETIRAcetam [Keppra] 1,000 mg PO BID #60 tablet 05/24/18 [Rx] Albuterol Neb [Proventil Neb] 2.5 mg IH TID 07/04/18 [History] Albuterol Sulfate [Ventolin Hfa] 2 puff IH Q6H PRN 07/04/18 [History] Aspirin [Adult Aspirin] 81 mg PO DAILY 07/04/18 [History] Finasteride [Proscar] 5 mg PO DAILY 07/04/18 [History] Fluticasone/Vilanterol [Breo Ellipta 200-25 Mcg INH] 1 puff IH DAILY 07/04/18 [ History] Levothyroxine [Synthroid] 175 mcg PO DAILY 07/04/18 [History] Multivit-Min/FA/Lycopen/Lutein [Centrum Silver Men Tablet] 1 tab PO DAILY [History] Tizanidine HCl 2 mg PO TID 07/04/18 [History] Atorvastatin [Lipitor] 40 mg PO HS #30 tablet 07/10/18 [Rx] Clindamycin [Cleocin] 450 mg PO TIDWM #3 capsule 07/10/18 [Rx] Clopidogrel [Plavix] 75 mg PO DAILY #30 tablet 07/10/18 [Rx] Lisinopril [Zestril] 2.5 mg PO DAILY #15 tablet 07/10/18 [Rx] Metoprolol XL (24 HR) Succ [Toprol Xl] 12.5 mg PO DAILY #30 tab.er.24h 07/10/18 [Rx] Allergies/Adverse Reactions: 3 Allergy/AdvReac Type Severity Reaction Status Date / Time Penicillins [PCN] Allergy Gastrointestinal Verified 07/05/18 09:40 Upset Date of admission: 07/04/18 16:28 Primary care physician: Angel Ruggiero DO Consults: 07/04/18 18:20 Consult to Pulmonology [CONS] Routine Consulting Provider: [facility] [place] Reason for Consult: intubated Time Notified: 16:00 Call Completed: Yes 07/04/18 19:47 Consult to Nutrition [CONS] Routine Comment: Consulting Provider: NUTRITION Reason for Dietary Consult: PO Supplementation 07/05/18 08:29 Consult to Cardiac Rehabilitation-Phase1 [CONS] Routine Comment: Reason for Consult: PCI, plan for CABG. Intubated. Call Completed: No 07/05/18 08:40 Consult to Nurse Navigator [CONS] Routine Comment: 07/05/18 15:28 Consult to Moto Mix Operator [CONS] Routine Reason for SW Consult: Cancer patient, found unresponsive with high alcohol level 07/05/18 15:33 Consult to Physical Therapy [CONS] Routine Comment: Evaluate, develop and implement POC Reason for Consult: physical deconditioning Does patient have active BEDREST order?: No Is patient medically & hemodynamically stable?: Yes OT [Consult to Occupational Therapy] [CONS] Routine Comment: Evaluate, develop and implement POC Reason for Consult: physical deconditioning Does patient have active BEDREST order?: No Is patient medically & hemodynamically stable?: Yes 07/07/18 14:40 Consult to Palliative Care [CONS] Routine Comment: Consulting Provider: [facility] [place] Reason for Consult: goals of care, counseling/education Call Completed: No Discharging clinician: Lindsay Quintanilla Anticipated date of discharge: 07/10/18 - Constitutional Vitals: Temp Pulse Resp BP Pulse Ox 98.4 F 54 15 128/68 98 07/10/18 16:50 07/10/18 16:50 07/10/18 16:50 07/10/18 16:50 07/10/18 16:50 Exam: * General: Ill-appearing male in no acute distress. He is awake and responds appropriately to questions. He is insistent to leave the hospital today. * HEENT: Atraumatic and normocephalic. * Cardiovascular: Regular rate and rhythm. S1 and S2 present. No murmurs, gallops, or rubs. * Respiratory: Clear bilaterally. Chest rises and falls symmetrically. * Gastrointestinal: Active bowel sounds. Abdomen is soft and nontender. * Extremities: No clubbing, cyanosis, or edema present. - Patient Status Disposition: Home, Self-Care Condition: Fair Overall status at discharge: patient is progressing back to baseline - Discharge Instructions Instructions: Clindamycin (By mouth), Metoprolol (By mouth), Lisinopril (By mouth), Atorvastatin (By mouth), Clopidogrel (By mouth) Follow Up With: Angel Ruggiero DO [Primary Care Provider] - Additional Instructions: Take the following medications as directed: 1. Aspirin 81mg daily 2. Plavix 75mg daily. 3. Atorvastatin 40mg at bedtime 4. Lisinopril 2.5mg daily 5. Metoprolol XL 12.5mg daily 6. Cleocin three times tomorrow with meals Follow up with your PCP in 3-5 days. Follow up with cardiology as outpatient. Return to the emergency department if you develop fevers, chills, shortness of breath, chest pain, or if any other concerns arise. - Diet and Activity Activity: as per physical therapy Diet: low fat, low cholesterol - VTE Documentation of Mechanical Device: Intermittent pneumatic compression device <Hector Agudelo - Last Filed: 07/10/18 18:03> Orders not resulted at time of discharge: Pending orders 07/05/18 07:00 ECG 12 lead ECG [ECG] Routine Date of Encounter: 07/10/18 Time of Encounter: 17:59 - Discharge Diagnosis (1) Acute hepatic encephalopathy Status: Resolved (2) Acute on chronic respiratory failure with hypoxia Status: Acute (3) Unresponsive Status: Acute (4) CAD in [place] artery Status: Acute (5) Alcohol withdrawal Status: Acute Qualifiers: Complication of substance-induced condition: with delirium Qualified Code(s ): F10.231 - Alcohol dependence with withdrawal delirium (6) Ischemic cardiomyopathy Status: Acute (7) Fall Status: Acute Qualifiers: Encounter type: initial encounter Qualified Code(s): W19.XXXA - Unspecified fall, initial encounter (8) Aspiration pneumonia Status: Suspected Qualifiers: Aspiration pneumonia type: unspecified Laterality: unspecified laterality Lung location: unspecified part of lung Qualified Code(s): J69.0 - Pneumonitis due to inhalation of food and vomit Hospital course: Mr. David is a 73 year old male - Time Spent with Patient Total time spent providing and/or coordinating discharge services: Date of admission: 07/04/18 16:28 Primary care physician: Angel Ruggiero DO Consults: 07/04/18 18:20 Consult to Pulmonology [CONS] Routine Consulting Provider: [facility] [place] Reason for Consult: intubated Time Notified: 16:00 Call Completed: Yes 07/04/18 19:47 Consult to Nutrition [CONS] Routine Comment: Consulting Provider: NUTRITION Reason for Dietary Consult: PO Supplementation 07/05/18 08:29 Consult to Cardiac Rehabilitation-Phase1 [CONS] Routine Comment: Reason for Consult: PCI, plan for CABG. Intubated. Call Completed: No 07/05/18 08:40 Consult to Nurse Navigator [CONS] Routine Comment: 07/05/18 15:28 Consult to Moto Mix Operator [CONS] Routine Reason for SW Consult: Cancer patient, found unresponsive with high alcohol level 07/05/18 15:33 Consult to Physical Therapy [CONS] Routine Comment: Evaluate, develop and implement POC Reason for Consult: physical deconditioning Does patient have active BEDREST order?: No Is patient medically & hemodynamically stable?: Yes OT [Consult to Occupational Therapy] [CONS] Routine Comment: Evaluate, develop and implement POC Reason for Consult: physical deconditioning Does patient have active BEDREST order?: No Is patient medically & hemodynamically stable?: Yes 07/07/18 14:40 Consult to Palliative Care [CONS] Routine Comment: Consulting Provider: [facility] [place] Reason for Consult: goals of care, counseling/education Call Completed: No - Constitutional Vitals: Temp Pulse Resp BP Pulse Ox 98.4 F 54 15 128/68 98 07/10/18 16:50 07/10/18 16:50 07/10/18 16:50 07/10/18 16:50 07/10/18 16:50 - Attending Attestation I saw evaluated and examined this patient and my medical decision-making was reviewed with the Resident Physician, Lindsay Quintanilla. I agree with the documented findings, disposition and treatment plan as described except to any changes set forth below. We independently had [id number] contact with the patient. Patient initially admitted to ICU after he was found unresponsive. He was intubated and also underwent left heart catheterization with PCI with TG due to abnormal EKG. He had 99% stenosis of dRCA and R PDA. He was recommended for cardiothoracic surgery evaluation. However given his comorbidities, cardiothoracic surgery recommends against CABG at this time. Patient may be reevaluated further as outpatient at a later date once his condition stabilizes and he is on medical treatment for sometime. Patient was diagnosed with aspiration pneumonia and treated with clindamycin. He also was treated for hepatic encephalopathy with lactulose. He had episodes of falls with dizziness and unsteadiness while in the ICU. Physical therapy was consulted and they evaluated the patient here today and recommended home health. Although the patient was recommended to stay in the hospital for an additional day to allow for coordination of care and better discharge planning, the patient wished to go home urgently. He does remain at high risk for readmissions given his comorbidities and poor compliance. On examination today, patient is awake and alert and oriented 3. Heart sounds are normal. Breath sounds are normal. He does not have any pedal edema. He will be discharged today on aspirin, Plavix, lisinopril, Lipitor and metoprolol. He will also complete another day of clindamycin to complete treatment course for aspiration pneumonia.
--- NOTE | 2018-07-10 17:21 | Physician Discharge Referral ---
Home Health/Hosp Referral Info Transfer to: Home Health Attending Provider: Dr. Agudelo Provider in Charge Post Discharge: PCP - Diagnosis (1) Fall Priority: Secondary Status: Acute (2) Ischemic cardiomyopathy Priority: Secondary Status: Acute (3) CAD in [place] artery Priority: Secondary Status: Acute (4) Acute on chronic respiratory failure with hypoxia Priority: Secondary Status: Acute (5) Aspiration pneumonia Priority: Secondary Status: Suspected (6) Acute hepatic encephalopathy Priority: Secondary Status: Resolved (7) Alcohol withdrawal Priority: Secondary Status: Acute (8) Unresponsive Priority: Primary Status: Acute - Respiratory Orders Smoking Cessation: Smoking cessation has been advised. For more information, call the [place] Tobacco Quit Line at 3-184-JJCY-NOW. - Diet/Nutrition Diet/Nutrition Orders: Cardiac - Activity Activity Orders: Chair, Walker - Services Needed Following services are medically necessary services: Nursing, Home Health Aide, Physical Therapy, Occupational Therapy - Transfer Medications Prescriptions: Atorvastatin [Lipitor] 40 mg PO HS #30 tablet Clindamycin [Cleocin] 450 mg PO TIDWM #3 capsule Clopidogrel [Plavix] 75 mg PO DAILY #30 tablet Lisinopril [Zestril] 2.5 mg PO DAILY #15 tablet Metoprolol XL (24 HR) Succ [Toprol Xl] 12.5 mg PO DAILY #30 tab.er.24h Home Medications: Donepezil [Aricept] 10 mg PO HS 05/23/18 [History] Omeprazole [PriLOSEC] 20 mg PO DAILY 05/23/18 [History] LevETIRAcetam [Keppra] 1,000 mg PO BID #60 tablet 05/24/18 [Rx] Albuterol Neb [Proventil Neb] 2.5 mg IH TID 07/04/18 [History] Albuterol Sulfate [Ventolin Hfa] 2 puff IH Q6H PRN 07/04/18 [History] Aspirin [Adult Aspirin] 81 mg PO DAILY 07/04/18 [History] Finasteride [Proscar] 5 mg PO DAILY 07/04/18 [History] Fluticasone/Vilanterol [Breo Ellipta 200-25 Mcg INH] 1 puff IH DAILY 07/04/18 [ History] Levothyroxine [Synthroid] 175 mcg PO DAILY 07/04/18 [History] Multivit-Min/FA/Lycopen/Lutein [Centrum Silver Men Tablet] 1 tab PO DAILY [History] Tizanidine HCl 2 mg PO TID 07/04/18 [History] Atorvastatin [Lipitor] 40 mg PO HS #30 tablet 07/10/18 [Rx] Clindamycin [Cleocin] 450 mg PO TIDWM #3 capsule 07/10/18 [Rx] Clopidogrel [Plavix] 75 mg PO DAILY #30 tablet 07/10/18 [Rx] Lisinopril [Zestril] 2.5 mg PO DAILY #15 tablet 07/10/18 [Rx] Metoprolol XL (24 HR) Succ [Toprol Xl] 12.5 mg PO DAILY #30 tab.er.24h 07/10/18 [Rx] Allergies/Adverse Reactions: 3 Allergy/AdvReac Type Severity Reaction Status Date / Time Penicillins [PCN] Allergy Gastrointestinal Verified 07/05/18 09:40 Upset Certification: Further, I certify that my clinical findings support that this patient is homebound (i.e. absences from home require considerable and taxing effort and are for medical reasons or tenriism services or infrequently or short duration when for other reasons) because: Homebound Reason: Patient requires assistance of a person or device to safely leave home Attestation: My signature below is to certify that this patient is under my care and that I, or nurse practitioner, or a physician's conference assistant working with me, has a face-to -face encounter with this patient.
[2018-07-10] MEDS ORDERED: Lactobacillus 1 EACH CAP.SPRINK PO SCH (21:00)
== END 2018-07-10 17:50 | disposition home or self-care (01) | DRG 246 ==
LOC: MERGE 14:26 → EMEROOARM 14:26 → ICNU 15:46 → EMEROOARM 16:28 → ICNU 16:28 → SUATTDRO 16:28 → ICNU 07-05 09:47 → 2ANU 07-08 10:31
PROVIDERS: ADMIT Internal Medicine Pulmonary Disease; ATTEND Internal Medicine

== ENCOUNTER 2019-02-19 16:08 | Inpatient (IN) ==
[2019-02-19] MEDS ORDERED: 0.9 % Sodium Chloride 500 ML IVC ONE (16:22)
[2019-02-19] MEDS ORDERED: *HR* Morphine 2 MG/ML SYRINGE IVP ONE (16:24)
[2019-02-19] MEDS ORDERED: Ondansetron 4 MG/2 ML VIAL IVP ONE (16:24)
--- NOTE | 2019-02-19 16:28 | Emergency Department Note ---
Disposition Clinical Impression: Compression fracture, Hypokalemia, Hypocalcemia, Weakness Disposition: Admitted As Inpatient Condition: Fair Referrals: aDyron Bryant MD [Primary Care Provider] - Forms: ED Satisfaction Letter, Work/School Release Time of Disposition: 17:57 General Adult HPI - General Chief complaint: ED General Medical Stated complaint: weakness Time Seen by Provider: 02/19/19 16:12 Source: patient, EMS Mode of arrival: EMS Limitations: no limitations Nursing Notes Reviewed: Yes Vital Signs Reviewed: Yes - History of Present Illness HPI Narrative: 74-year-old male with multiple medical conditions including CAD, CVA with residual right-sided weakness, since for evaluation of generalized weakness as well as increased weight loss. Patient was sent in by his home health nurse. Patient reasons for EMS. EMS report the patient has had chronic headaches given his history of CVA with prior craniectomy. Patient states that that was a year ago. Patient also has known coronary disease. States he is having chest pain that appears to be chronic in nature however states that his current chest pain is in the middle of his chest that started approximate hour and half ago. Notes a productive cough. No fevers. Notes and shortness of breath. No nausea vomiting or diaphoresis. Patient is also reporting some abdominal pain. Patient is a poor historian. There is no family at bedside to provide any additional history. Pain Scale: 6 - Related Data Home Medications Medication Instructions Recorded Confirmed Donepezil [Aricept] 10 mg PO HS 05/23/18 11/21/18 Omeprazole [PriLOSEC] 20 mg PO DAILY 05/23/18 11/21/18 Albuterol Neb [Proventil Neb] 2.5 mg IH TID 07/04/18 11/21/18 Albuterol Sulfate [Ventolin Hfa] 2 puff IH Q6H PRN 07/04/18 11/21/18 Aspirin [Adult Aspirin] 81 mg PO DAILY 07/04/18 11/21/18 Finasteride [Proscar] 5 mg PO DAILY 07/04/18 11/21/18 Fluticasone/Vilanterol [Breo 1 puff IH DAILY 07/04/18 11/21/18 Ellipta 200-25 Mcg INH] Levothyroxine [Synthroid] 175 mcg PO DAILY 07/04/18 11/21/18 Multivit-Min/FA/Lycopen/Lutein 1 tab PO DAILY 07/04/18 11/21/18 [Centrum Silver Men Tablet] Tizanidine HCl 2 mg PO TID 07/04/18 11/21/18 Previous Rx's Medication Instructions Recorded LevETIRAcetam [Keppra] 1,000 mg PO BID #60 tablet 05/24/18 Atorvastatin [Lipitor] 40 mg PO HS #30 tablet 07/10/18 Clindamycin [Cleocin] 450 mg PO TIDWM #3 capsule 07/10/18 Clopidogrel [Plavix] 75 mg PO DAILY #30 tablet 07/10/18 Lisinopril [Zestril] 2.5 mg PO DAILY #15 tablet 07/10/18 Metoprolol XL (24 HR) Succ [Toprol 12.5 mg PO DAILY #30 tab.er.24h 07/10/18 Xl] Azithromycin [Azithromycin 6-Tab 250 mg PO PER PKG DI #6 tab 10/08/18 Pack] Lactose-Reduced Food [Ensure Plus] 1 bottle PO TID #90 can 10/17/18 Potassium Chloride [Klor-Con 10] 1 tab PO DAILY #30 tablet.er 11/21/18 Allergies Allergy/AdvReac Type Severity Reaction Status Date / Time Penicillins [PCN] Allergy Gastrointestinal Verified 11/21/18 15:33 Upset All systems ED: reviewed and negative except as stated. Constitutional: Denies: fever Cardiovascular: Reports: chest pain Respiratory: Reports: cough, dyspnea Gastrointestinal: Reports: abdominal pain. Denies: nausea, vomiting Neurological: Reports: headache, weakness Past Medical History - Past Medical History Source: patient Medical history: Reports: CVA, hyperlipidemia, hypertension, myocardial infarction, seizures, other Surgical history: Reports: other Psychiatric history: Reports: no psych history - Social History Smoking Status: Former smoker Smokeless Tobacco Status: No Alcohol use: Reports: none Drug use: Reports: none Physical Exam - General Limitations: no limitations General appearance: alert, in no apparent distress, cachectic - Head Head exam: atraumatic, normocephalic, normal inspection - Eye Eye exam: Present: normal appearance, PERRL, EOMI - ENT ENT exam: normal exam, normal oropharynx, mucous membranes dry - Neck Neck exam: Present: normal inspection - Chest Chest inspection: Present: normal inspection - Respiratory Respiratory exam: Present: other (Diffusely diminished with poor respiratory effort). Absent: respiratory distress - Cardiovascular Cardiovascular exam: Present: regular rate, normal rhythm. Absent: systolic murmur - Abdominal Exam Abdominal exam: Present: soft, Non-Tender - Extremities Exam Extremities exam: Present: normal inspection. Absent: pedal edema - Expanded Lower Extremity Exam Neurovascular/Tendon exam: Present: normal capillary refill - Back Exam Back exam: Present: normal inspection - Neurological Exam Neurological exam: Present: alert, oriented X3, CN II-XII intact - Expanded Neurological Exam Patient oriented to: Present: person, place, time Speech: Present: fluid speech Cranial nerves: EOM function (II, III, IV, ): Normal, facial sensation (V): Normal, facial palsy (VII): Abnormal Right, spinal accessory function (XI): Normal, tongue deviation (XII): Normal Cerebellar function: finger to nose: Normal Motor strength - LUE: 5/5 Motor strength - RUE: 4/5 Motor strength - LLE: 5/5 Motor strength - RLE: 4/5 Coma Scale Eye Opening: Spontaneous Coma Scale Motor Response: Obeys Commands Coma Scale Verbal Response: Oriented Coma Scale Total: 15 - Skin Skin exam: Present: warm, dry, intact, normal color. Absent: rash Course Course Narrative: Patient is having reports of generalized weakness on exam the patient does appear cachectic and failure to thrive with increasing weight loss. Multiple complaints noted on exam. Patient does appear to have chronic headaches as well as chronic chest pain. Patient's also complaining of cough shortness of breath. Patient will do an extensive evaluation including a head CT, chest x- ray CT the abdomen pelvis as well as urinalysis. Disposition anticipated for admission for generalized weakness. - Reevaluation(s) Reevaluation #1: Patient seen and examined. Patient agrees with plan of care. Time: 18:03 Vital Signs Temperature 97.1 F L 02/19/19 16:13 Pulse Rate 60 02/19/19 16:13 Respiratory Rate 18 02/19/19 16:13 Blood Pressure 130/65 02/19/19 16:13 O2 Sat by Pulse Oximetry 100 02/19/19 16:13 Temperature 97.1 F L 02/19/19 16:13 Pulse Rate 60 02/19/19 16:13 Respiratory Rate 18 02/19/19 16:13 Blood Pressure 130/65 02/19/19 16:13 O2 Sat by Pulse Oximetry 100 02/19/19 16:13 Oxygen Delivery Oxygen Delivery Room Air Medical Decision Making - MDM Narrative Medical decision making narrative: Patient's workup included multiple electrolyte abnormalities including hypokalemia. Magnesium is pending. Patient also hypo-calcemic. Patient's been hypocalcemic in the past. 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 Patient does appear cachectic with concerns of failure to thrive. Patient CT scan does not reveal any evidence of bowel structure. Patient does have a compression deformity of L1 but denies any recent trauma or falls. Patient was given appropriate pain medicine. Patient's CT of his head shows no acute abnormalities with residual postsurgical changes from his stroke in the past. EKG shows no acute changes based on prior EKGs. Troponins negative. Patient was given IV fluids. Patient was given a short replaced. Given the patient's N abnormalities as well as concerns of failure to thrive and weakness patient will be admitted for continued evaluation. patient is agreeable with central plan of care. - Lab Data Lab results reviewed: Yes I reviewed the patient's lab results. Result diagrams: 02/19/19 16:48 02/19/19 16:48 Lab Results 02/19/19 02/19/19 02/19/19 Range/Units 16:48 16:48 16:48 WBC (4.3-11.1) K/mcL RBC (4.19-5.50) M/mcL Hgb (12.9-16.9) g/dL Hct (37.5-50.1) % MCV (83.0-100.0) fL MCH (28.0-33.3) pg MCHC (31.6-35.5) g/dL RDW (11.5-14.5) % Plt Count (140-400) K/mcL MPV (9.4-12.4) fL Immature Gran % (0-4) % Seg Neutrophils % % Lymphocytes % % Monocytes % % Eosinophils % % Basophils % % Neutrophils # (1.6-8.9) K/mcL Lymphocytes # (0.6-4.6) K/mcL Monocytes # (0.0-1.3) K/mcL Eosinophils # (0.0-0.6) K/mcL Basophils # (0.0-0.2) K/mcL PT 12.1 (9.4-12.1) Seconds INR 1.1 APTT 35.0 (26.0-36.0) Seconds Sodium 144 (136-145) mEq/L Potassium 2.8 L (3.5-5.1) mEq/L Chloride 102 (98-107) mEq/L Carbon Dioxide 33 H (23-29) mEq/L BUN 18 (8-23) mg/dL Creatinine 1.00 (0.70-1.30) mg/dL Est GFR ( Amer) > 60 (> 60) Est GFR (Non-Af Amer) > 60 (> 60) BUN/Creatinine Ratio 18 (6-26) Glucose 73 (70-105) mg/dL Calculated Osmolality 298 (280-300) Lactic Acid (0.5-2.2) mmol/L Calcium 5.5 L* (8.6-10.3) mg/dL Troponin I (< 0.04) ng/mL B-Natriuretic Peptide 98 (Less than 100) pg/mL Lipase 86 H (11-82) Units/L TSH (0.340-5.600) mcIU/mL 02/19/19 02/19/19 02/19/19 Range/Units 16:48 16:48 16:48 WBC 6.1 (4.3-11.1) K/mcL RBC 4.59 (4.19-5.50) M/mcL Hgb 12.3 L (12.9-16.9) g/dL Hct 40.3 (37.5-50.1) % MCV 87.8 (83.0-100.0) fL MCH 26.8 L (28.0-33.3) pg MCHC 30.5 L (31.6-35.5) g/dL RDW 16.3 H (11.5-14.5) % Plt Count 206 (140-400) K/mcL MPV 9.2 L (9.4-12.4) fL Immature Gran % 0.2 (0-4) % Seg Neutrophils % 62.4 % Lymphocytes % 27.9 % Monocytes % 8.5 % Eosinophils % 0.7 % Basophils % 0.3 % Neutrophils # 3.8 (1.6-8.9) K/mcL Lymphocytes # 1.7 (0.6-4.6) K/mcL Monocytes # 0.5 (0.0-1.3) K/mcL Eosinophils # 0.0 (0.0-0.6) K/mcL Basophils # 0.0 (0.0-0.2) K/mcL PT (9.4-12.1) Seconds INR APTT (26.0-36.0) Seconds Sodium (136-145) mEq/L Potassium (3.5-5.1) mEq/L Chloride (98-107) mEq/L Carbon Dioxide (23-29) mEq/L BUN (8-23) mg/dL Creatinine (0.70-1.30) mg/dL Est GFR ( Amer) (> 60) Est GFR (Non-Af Amer) (> 60) BUN/Creatinine Ratio (6-26) Glucose (70-105) mg/dL Calculated Osmolality (280-300) Lactic Acid 1.6 (0.5-2.2) mmol/L Calcium (8.6-10.3) mg/dL Troponin I < 0.03 (< 0.04) ng/mL B-Natriuretic Peptide (Less than 100) pg/mL Lipase (11-82) Units/L TSH 0.028 L (0.340-5.600) mcIU/mL - Radiology Data Radiology results reviewed: Yes I reviewed the patient's radiology results. Chest X-Ray 02/19/19 16:22 IMPRESSION: Cardiomegaly with no active cardiopulmonary disease demonstrated D/ / Zackery Santacruz MD / Zackery Satnacruz MD Interpreting Provider: Zackery Santacruz MD Abdomen/Pelvis CT 02/19/19 16:23 IMPRESSION: A few punctate stones in the kidneys bilaterally. No hydronephrosis. Compression deformity of L1 with loss of approximately 30% vertebral body height. This is new since the previous exam. Some sclerosis suggesting that this may be subacute. This would be better evaluated with MRI if patient has focal pain in this region. D/ / Rosa Phelan MD / Rosa Phelan MD Interpreting Provider: Rosa Phelan MD Head CT 02/19/19 16:23 IMPRESSION: No acute intracranial abnormality. Remote postsurgical sequela is stable. D/ / Roney Nunes / Roney Nunes Interpreting Provider: Roney Nunes - EKG Data EKG #1 EKG attestation: Yes I reviewed and interpreted this EKG. EKG shows normal: sinus rhythm Rate: normal Rhythm: NSR [place]/QRS: normal ST segment depression in: III, aVF, v4, v5 When compared to previous EKG there are: no significant changes Interpretation: nonspecific ST-T wave changes Attestation Statement - Attestation Attestation: I, Jose C Desouza DO, examined this patient [id number] and my medical decision-making was reviewed with Dr. Farhat Lynch , Resident Physician. I ag ree with the documented findings, disposition and treatment plan as described except to the extent set forth below. I personally supervised and was present for the canas/critical portions of the procedures completed by the resident documented below. Please see my progress notes for details.
[2019-02-19 17:11] LABS: Basophils % 0.3 %; Eosinophils % 0.7 %; Hematocrit 40.3 % (37.5-50.1); Hemoglobin 12.3 g/dL (12.9-16.9); Immature Granulocytes % 0.2 % (0-4); Lymphocytes # 1.7 K/mcL (0.6-4.6); Lymphocytes % 27.9 %; Mean Corpuscular HGB Conc 30.5 g/dL (31.6-35.5); Mean Corpuscular Hemoglobin 26.8 pg (28.0-33.3); Mean Corpuscular Volume 87.8 fL (83.0-100.0); Mean Platelet Volume 9.2 fL (9.4-12.4); Monocytes # 0.5 K/mcL (0.0-1.3); Monocytes % 8.5 %; Neutrophils # 3.8 K/mcL (1.6-8.9); Platelet Count 206 K/mcL (140-400); Red Blood Count 4.59 M/mcL (4.19-5.50); Red Cell Distribution Width 16.3 % (11.5-14.5); Segmented Neutrophils % 62.4 %
[2019-02-19 17:24] LABS: INR 1.1; Prothrombin Time 12.1 Seconds (9.4-12.1)
[2019-02-19 17:34] LABS: Troponin I < 0.03 ng/mL (< 0.04)
[2019-02-19 17:38] LABS: Sodium 144 mEq/L (136-145)
[2019-02-19 17:39] LABS: BUN/Creatinine Ratio 18 (6-26); Blood Urea Nitrogen 18 mg/dL (8-23); Calcium 5.5 mg/dL (8.6-10.3); Carbon Dioxide 33 mEq/L (23-29); Chloride 102 mEq/L (98-107); Glucose 73 mg/dL (70-105); Lipase 86 Units/L (11-82); Osmolality,Calculated 298 (280-300); Potassium 2.8 mEq/L (3.5-5.1); eGFR For Non-African Americans > 60 (> 60)
[2019-02-19] MEDS ORDERED: Calcium Gluconate 2,000 MG in 0.9 % Sodium Chloride 100 ML IVPB ONE (17:43)
[2019-02-19 17:47] LABS: Thyroid Stimulating Hormone 0.028 mcIU/mL (0.340-5.600)
[2019-02-19] MEDS ORDERED: Potassium Chloride 20 MEQ, Lidocaine 1% 2 ML in D5% in Water 250 ML IVPB ONE (17:54)
--- NOTE | 2019-02-19 18:08 | Emergency Department Note ---
Disposition Clinical Impression: Compression fracture, Hypokalemia, Hypocalcemia, Weakness Disposition: Admitted As Inpatient Condition: Fair Referrals: Dayron Bryant MD [Non-Partnered Physician] - Forms: ED Satisfaction Letter, Work/School Release Time of Disposition: 18:08 General Adult HPI - General Chief complaint: ED General Medical Stated complaint: weakness Time Seen by Provider: 02/19/19 16:12 Source: patient, EMS Mode of arrival: EMS Limitations: no limitations - History of Present Illness Pain Scale: 6 - Related Data Home Medications Medication Instructions Recorded Confirmed Donepezil [Aricept] 10 mg PO HS 05/23/18 11/21/18 Omeprazole [PriLOSEC] 20 mg PO DAILY 05/23/18 11/21/18 Albuterol Neb [Proventil Neb] 2.5 mg IH TID 07/04/18 11/21/18 Albuterol Sulfate [Ventolin Hfa] 2 puff IH Q6H PRN 07/04/18 11/21/18 Aspirin [Adult Aspirin] 81 mg PO DAILY 07/04/18 11/21/18 Finasteride [Proscar] 5 mg PO DAILY 07/04/18 11/21/18 Fluticasone/Vilanterol [Breo 1 puff IH DAILY 07/04/18 11/21/18 Ellipta 200-25 Mcg INH] Levothyroxine [Synthroid] 175 mcg PO DAILY 07/04/18 11/21/18 Multivit-Min/FA/Lycopen/Lutein 1 tab PO DAILY 07/04/18 11/21/18 [Centrum Silver Men Tablet] Tizanidine HCl 2 mg PO TID 07/04/18 11/21/18 Previous Rx's Medication Instructions Recorded LevETIRAcetam [Keppra] 1,000 mg PO BID #60 tablet 05/24/18 Atorvastatin [Lipitor] 40 mg PO HS #30 tablet 07/10/18 Clindamycin [Cleocin] 450 mg PO TIDWM #3 capsule 07/10/18 Clopidogrel [Plavix] 75 mg PO DAILY #30 tablet 07/10/18 Lisinopril [Zestril] 2.5 mg PO DAILY #15 tablet 07/10/18 Metoprolol XL (24 HR) Succ [Toprol 12.5 mg PO DAILY #30 tab.er.24h 07/10/18 Xl] Azithromycin [Azithromycin 6-Tab 250 mg PO PER PKG DI #6 tab 10/08/18 Pack] Lactose-Reduced Food [Ensure Plus] 1 bottle PO TID #90 can 10/17/18 Potassium Chloride [Klor-Con 10] 1 tab PO DAILY #30 tablet.er 11/21/18 Allergies Allergy/AdvReac Type Severity Reaction Status Date / Time Penicillins [PCN] Allergy Gastrointestinal Verified 11/21/18 15:33 Upset Constitutional: Denies: fever Cardiovascular: Reports: chest pain Respiratory: Reports: cough, dyspnea Gastrointestinal: Reports: abdominal pain. Denies: nausea, vomiting Neurological: Reports: headache, weakness Past Medical History - Past Medical History Medical history: Reports: CVA, hyperlipidemia, hypertension, myocardial infarction, seizures, other Surgical history: Reports: other Psychiatric history: Reports: no psych history - Social History Smoking Status: Former smoker Smokeless Tobacco Status: No Alcohol use: Reports: none Drug use: Reports: none Physical Exam - General Limitations: no limitations General appearance: alert, in no apparent distress, cachectic Course Vital Signs Temperature 97.1 F L 02/19/19 16:13 Pulse Rate 60 02/19/19 16:13 Respiratory Rate 18 02/19/19 16:13 Blood Pressure 130/65 02/19/19 16:13 O2 Sat by Pulse Oximetry 100 02/19/19 16:13 Temperature 97.1 F L 02/19/19 16:13 Pulse Rate 60 02/19/19 16:13 Respiratory Rate 18 02/19/19 16:13 Blood Pressure 130/65 02/19/19 16:13 O2 Sat by Pulse Oximetry 100 02/19/19 16:13 Oxygen Delivery Oxygen Delivery Room Air Medical Decision Making - Lab Data Result diagrams: 02/19/19 16:48 02/19/19 16:48 Lab Results 02/19/19 02/19/19 02/19/19 Range/Units 16:48 16:48 16:48 WBC (4.3-11.1) K/mcL RBC (4.19-5.50) M/mcL Hgb (12.9-16.9) g/dL Hct (37.5-50.1) % MCV (83.0-100.0) fL MCH (28.0-33.3) pg MCHC (31.6-35.5) g/dL RDW (11.5-14.5) % Plt Count (140-400) K/mcL MPV (9.4-12.4) fL Immature Gran % (0-4) % Seg Neutrophils % % Lymphocytes % % Monocytes % % Eosinophils % % Basophils % % Neutrophils # (1.6-8.9) K/mcL Lymphocytes # (0.6-4.6) K/mcL Monocytes # (0.0-1.3) K/mcL Eosinophils # (0.0-0.6) K/mcL Basophils # (0.0-0.2) K/mcL PT 12.1 (9.4-12.1) Seconds INR 1.1 APTT 35.0 (26.0-36.0) Seconds Sodium 144 (136-145) mEq/L Potassium 2.8 L (3.5-5.1) mEq/L Chloride 102 (98-107) mEq/L Carbon Dioxide 33 H (23-29) mEq/L BUN 18 (8-23) mg/dL Creatinine 1.00 (0.70-1.30) mg/dL Est GFR ( Amer) > 60 (> 60) Est GFR (Non-Af Amer) > 60 (> 60) BUN/Creatinine Ratio 18 (6-26) Glucose 73 (70-105) mg/dL Calculated Osmolality 298 (280-300) Lactic Acid (0.5-2.2) mmol/L Calcium 5.5 L* (8.6-10.3) mg/dL Troponin I (< 0.04) ng/mL B-Natriuretic Peptide 98 (Less than 100) pg/mL Lipase 86 H (11-82) Units/L TSH (0.340-5.600) mcIU/mL 02/19/19 02/19/19 02/19/19 Range/Units 16:48 16:48 16:48 WBC 6.1 (4.3-11.1) K/mcL RBC 4.59 (4.19-5.50) M/mcL Hgb 12.3 L (12.9-16.9) g/dL Hct 40.3 (37.5-50.1) % MCV 87.8 (83.0-100.0) fL MCH 26.8 L (28.0-33.3) pg MCHC 30.5 L (31.6-35.5) g/dL RDW 16.3 H (11.5-14.5) % Plt Count 206 (140-400) K/mcL MPV 9.2 L (9.4-12.4) fL Immature Gran % 0.2 (0-4) % Seg Neutrophils % 62.4 % Lymphocytes % 27.9 % Monocytes % 8.5 % Eosinophils % 0.7 % Basophils % 0.3 % Neutrophils # 3.8 (1.6-8.9) K/mcL Lymphocytes # 1.7 (0.6-4.6) K/mcL Monocytes # 0.5 (0.0-1.3) K/mcL Eosinophils # 0.0 (0.0-0.6) K/mcL Basophils # 0.0 (0.0-0.2) K/mcL PT (9.4-12.1) Seconds INR APTT (26.0-36.0) Seconds Sodium (136-145) mEq/L Potassium (3.5-5.1) mEq/L Chloride (98-107) mEq/L Carbon Dioxide (23-29) mEq/L BUN (8-23) mg/dL Creatinine (0.70-1.30) mg/dL Est GFR ( Amer) (> 60) Est GFR (Non-Af Amer) (> 60) BUN/Creatinine Ratio (6-26) Glucose (70-105) mg/dL Calculated Osmolality (280-300) Lactic Acid 1.6 (0.5-2.2) mmol/L Calcium (8.6-10.3) mg/dL Troponin I < 0.03 (< 0.04) ng/mL B-Natriuretic Peptide (Less than 100) pg/mL Lipase (11-82) Units/L TSH 0.028 L (0.340-5.600) mcIU/mL Attestation Statement - Attestation Attestation: I, Jose C Desouza DO, examined this patient [id number] and my medical decision-making was reviewed with Dr. Farhat Lynch, Resident Physician. I agree with the documented findings, disposition and treatment plan as described except to the extent set forth below. I personally supervised and was present for the canas/critical portions of the procedures completed by the resident documented below. Please see my progress notes for details. 74-year-old male presents emergency room for generalized weakness and failure to thrive and weight loss. Patient denies any new symptoms here today. He does have a chronic history of chest discomfort and pain. Does have chronic pain related issues. He was diagnosed with large cell B type lymphoma. He is not actively in any treatment at this time. Vital signs are stable. Patient is denying chest pain shortness of breath headache or vision changes this time. Denies any nausea vomiting or diarrhea. No fevers no chills. No active symptoms this time. He has not fallen or injured himself. Patient will have detailed workup completed this time and CT the head and CT the abdomen chest x- ray and screening labs. Disposition will be determined once full workup and treatment course I been established. EKG will be collected as well. Vital si gns remain stable. Symptomatically controlled will be provided the patient to help with his described discomfort and pain. See detailed documentation of the physical exam, medical intervention, medical decision-making and disposition in the resident physician's note. No critical care pad the patient's treatment course at this time. 1800 Patient is found to be hypokalemic as well as hypocalcemic. Both of these medications will be provided the patient emergency room. Otherwise he has no other acute findings at this point. Patient is resting comfortably in the bed. He will be admitted for electrolyte derangements as well as failure to thrive and generalized weakness. He lives at home by himself and does not have anybody they are to take care of them. The hospitalist Dr. Castro reviewed the case and did not have any other questions or concerns at this time. Patient will be monitored here in the emergency department until the admission process is completed.
[2019-02-19 18:35] LABS: VBG Ionized Calcium 0.55 mmol/L (1.15-1.35)
[2019-02-19 19:04] LABS: Bilirubin,Urine Small (Negative); Blood,Urine Negative (Negative); Clarity,Urine Clear (Clear); Color,Urine Dark Yellow (Yellow); Glucose,Urine (UA) Normal (Normal); Ketones,Urine Trace mg/dL (Negative); Leukocyte Esterase,Urine Negative (Negative); Nitrite,Urine Negative (Negative); Protein,Urine 30 mg/dL (Neg-Trace); Specific Gravity,Urine 1.026 (1.010-1.025); Urobilinogen,Urine Normal (Normal)
[2019-02-19 19:06] LABS: Bacteria,Urine None Seen per hpf (None-Few); RBC,Urine 0-3 per hpf (0-3); Squamous Epithelial Cell,Urine Many per lpf (None-Few)
[2019-02-19 19:25] LABS: Mucus,Urine Many (Few); Oval Fat Bodies,Urine Present (Not Present)
[2019-02-19 19:35] LABS: Renal Epithelial Cells,Urine Moderate per hpf (None-Few)
[2019-02-19] MEDS ORDERED: Acetaminophen 325 MG TABLET PO PRN (20:52)
[2019-02-19] MEDS ORDERED: Nitroglycerin 0.4 MG TAB.SUBL SL PRN (20:52)
[2019-02-19] MEDS ORDERED: Naloxone 0.4 MG/ML INJ IVP PRN (20:52)
[2019-02-19] MEDS ORDERED: Ondansetron ODT 4 MG TAB.RAPDIS SL PRN (20:52)
[2019-02-19] MEDS ORDERED: *HR* Morphine 2 MG/ML SYRINGE IVP PRN (20:52)
[2019-02-19] MEDS ORDERED: *HR* LORazepam 2 MG/ML VIAL IVP PRN (21:02)
--- NOTE | 2019-02-19 23:07 | Internal Med History&Physical ---
Date of Encounter: 02/19/19 Time of Encounter: 20:30 Internal Medicine - H&P: HPI Chief complaint: weakness, fatigue, chest pain Admitted From: Emergency Dept Plans for Post Hospital Care: Transfer Senior Living Facility History of present illness: Mr. David is a 74 year old male who presents the ER tonight with complaints of fatigue, weakness, and chest pain. Workup in ER revealed patient to have metabolic derangements, concern for L1 compression fracture, and reports of chest pain. He was then admitted to hospitalist service. Upon my assessment of the patient, patient is a poor historian due to old stroke and prior brain surgery with resultant neurocognitive delay. However, he is able to elaborate to me that he has chest pain, generalized weakness, fatigue, and difficulty caring for himself. Regarding his chest pain, symptoms started today. He denies any nausea, vomiting, shortness of breath, diaphoresis, or radiating pain to his left arm. He did confirm to me that he had recent PCI and stent. I reviewed his old records and note that he had a PCI and stent placed in July,. He is currently chest pain-free. He did receive morphine in the ER with relief of his chest pain. He is also has receiving replacement of his calcium and potassium needs. He denies any pain in his back or recent fall. The L1 compression fracture was noted incidentally on a CT scan of his abdomen and pelvis. Past Med Surg Social Fam HX - Past Medical History Attestation: Yes The following information was validated with the patient. Source: patient, old records reviewed Medical history: CVA, hyperlipidemia, hypertension, myocardial infarction, seizures, other Additional medical history: HEART STENTS X 8, ENLARGED PROSTATE, STOMACH ULCERS Psychiatric history: no psych history - Past Surgical History Surgical History: angioplasty/stent, other Additional surgical history: BRAIN SURGERY IN 2005 TO REMOVE BLOOD CLOT, SURGERY ON STOMACH D/T BLEEDING ULCERS - Social History Smoking Status: Former smoker Smokeless Tobacco Status: No Alcohol use: none Drug use: none Current living situation: Home, With Family Activity Level: Uses cane/walker Recent Out of Country Travel Within the Last 8 Weeks: No - Family History Mother Living Status: Hx Family Cardiac Disorders: Yes Father Living Status: Hx Family Cardiac Disorders: Yes Internal Medicine - H&P: Meds Donepezil [Aricept] 10 mg PO HS 05/23/18 [History] Omeprazole [PriLOSEC] 20 mg PO DAILY 05/23/18 [History] LevETIRAcetam [Keppra] 1,000 mg PO BID #60 tablet 05/24/18 [Rx] Albuterol Neb [Proventil Neb] 2.5 mg IH TID 07/04/18 [History] Albuterol Sulfate [Ventolin Hfa] 2 puff IH Q6H PRN 07/04/18 [History] Aspirin [Adult Aspirin] 81 mg PO DAILY 07/04/18 [History] Finasteride [Proscar] 5 mg PO DAILY 07/04/18 [History] Fluticasone/Vilanterol [Breo Ellipta 200-25 Mcg INH] 1 puff IH DAILY 07/04/18 [History] Levothyroxine [Synthroid] 175 mcg PO DAILY 07/04/18 [History] Multivit-Min/FA/Lycopen/Lutein [Centrum Silver Men Tablet] 1 tab PO DAILY 07/04/18 [History] Tizanidine HCl 2 mg PO TID 07/04/18 [History] Atorvastatin [Lipitor] 40 mg PO HS #30 tablet 07/10/18 [Rx] Clindamycin [Cleocin] 450 mg PO TIDWM #3 capsule 07/10/18 [Rx] Clopidogrel [Plavix] 75 mg PO DAILY #30 tablet 07/10/18 [Rx] Lisinopril [Zestril] 2.5 mg PO DAILY #15 tablet 07/10/18 [Rx] Metoprolol XL (24 HR) Succ [Toprol Xl] 12.5 mg PO DAILY #30 tab.er.24h 07/10/18 [Rx] Azithromycin [Azithromycin 6-Tab Pack] 250 mg PO PER PKG DI #6 tab 10/08/18 [Rx] Lactose-Reduced Food [Ensure Plus] 1 bottle PO TID #90 can 10/17/18 [Rx] Potassium Chloride [Klor-Con 10] 1 tab PO DAILY #30 tablet.er 11/21/18 [Rx] Allergy/AdvReac Type Severity Reaction Status Date / Time Penicillins [PCN] Allergy Gastrointestinal Verified 11/21/18 15:33 Upset - Constitutional Constitutional: fatigue, weakness, no chills, no fever(s), no night sweats - EENT Eyes: no blurry vision, no change in vision Ears: no ear pain, no tinnitus Nose, mouth and throat: no sinus pressure, no sore throat - Cardiovascular Cardiovascular ROS IM: chest pain, dyspnea, dyspnea on exertion, no orthopnea, no syncope - Respiratory Respiratory: no cough, no hemoptysis, no chest congestion, no excessive phlegm production - Gastrointestinal Gastrointestinal: no abdominal pain, no diarrhea, no hematemesis, no hematoc hezia, no melena, no nausea, no vomiting - Genitourinary Genitourinary ROS male: no dysuria, no flank pain, no hematuria - Musculoskeletal Musculoskeletal ROS IM: no arthralgias, no back pain - Integumentary Integumentary IM: no rash, no jaundice - Neurological Neurological ROS: focal weakness (chronic right sided -- old stroke), no dizziness, no frequent falls, no headache(s), no tremor(s) - Psychiatric Psychiatric: no anxiety, no depression - Endocrine Endocrine IM: no polydipsia, no polyuria - Allergic/Immunologic Allergic/Immunologic: no GI upset with certain foods - Constitutional Vitals: Temp Pulse Resp BP Pulse Ox 97.1 F L 63 16 158/78 99 02/19/19 16:13 02/19/19 20:38 02/19/19 19:49 02/19/19 20:38 02/19/19 19:49 General appearance: Present: cooperative, A&O X 3, pleasant, answers questions appropriately Exam: see below - Head Head exam: Present: atraumatic, normal inspection - Eye Eye exam: Present: EOMI, PERRL. Absent: scleral icterus Pupils: Present: normal accommodation - ENT ENT exam: Present: mucous membranes dry, normal exam, normal oropharynx - Neck Neck exam general surgery: Present: full ROM, supple, trachea midline. Absent: tenderness, nuchal rigidity, thyromegaly - Respiratory Respiratory exam: Present: CTAB. Absent: chest wall tenderness, rales, rhonchi, wheezes - Cardiovascular Cardiovascular exam: Present: distant heart sounds, RRR, +S1, +S2. Absent: diastolic murmur, systolic murmur - GI/Abdominal GI/Abdominal exam: Present: normal bowel sounds, soft. Absent: guarding, hepatomegaly, mass, rebound, splenomegaly, tenderness - Extremities Exam Extremities exam: Present: full ROM, normal capillary refill, warm, radial pu lses palpable and symmetrical. Absent: calf tenderness, joint swelling, pedal edema, tenderness - Back Exam Back exam: Present: normal inspection. Absent: CVA tenderness (L), CVA tenderness (R) - Neurological Exam Neurological exam: Present: alert, CN II-XII intact, oriented X3, no focal deficits Additional comments: cognitively slow but coherent; no focal deficits appreciated - Psychiatric Psychiatric exam: Present: normal affect, normal mood - Skin Skin exam: Present: dry, intact, warm Internal Med - H&P Results - Labs CBC & Chem 7: 02/19/19 16:48 02/19/19 16:48 Labs: Short CBC 02/19/19 Range/Units 16:48 WBC 6.1 (4.3-11.1) K/mcL Hgb 12.3 L (12.9-16.9) g/dL Hct 40.3 (37.5-50.1) % Plt Count 206 (140-400) K/mcL Neutrophils # 3.8 (1.6-8.9) K/mcL BMP 02/19/19 16:48 Sodium 144 Potassium 2.8 L Chloride 102 Carbon Dioxide 33 H BUN 18 Creatinine 1.00 Glucose 73 Calcium 5.5 L* Cardiac Enzymes 02/19/19 Range/Units 16:48 Troponin I < 0.03 (< 0.04) ng/mL Urine 02/19/19 Range/Units 18:26 Urine Color Dark Yellow (Yellow) Urine Clarity Clear (Clear) Urine pH 6.0 (5.0-8.0) pH Units Ur Specific [place] 1.026 H (1.010-1.025) Urine Protein 30 H (Neg-Trace) mg/dL Urine Glucose (UA) Normal (Normal) mg/dL - EKG Data -: EKG Interpreted by Myself - EKG Data Prior EKG available for review: no EKG comments: 02/19/19 23:10 NSR; subtle ST-T depression noted anterolaterally - Impressions ITS Impressions Chest X-Ray 02/19/19 16:22 IMPRESSION: Cardiomegaly with no active cardiopulmonary disease demonstrated D/ / Zackery Santacruz MD / Zackery Santacruz MD Interpreting Provider: Zackery Santacruz MD Abdomen/Pelvis CT 02/19/19 16:23 IMPRESSION: A few punctate stones in the kidneys bilaterally. No hydronephrosis. Compression deformity of L1 with loss of approximately 30% vertebral body height. This is new since the previous exam. Some sclerosis suggesting that this may be subacute. This would be better evaluated with MRI if patient has focal pain in this region. D/ / Rosa Phelan MD / Rosa Phelan MD Interpreting Provider: Rosa Phelan MD Head CT 02/19/19 16:23 IMPRESSION: No acute intracranial abnormality. Remote postsurgical sequela is stable. D/ / Roney Nunes / Roney Nunes Interpreting Provider: Roney Nunes - Diagnostic Studies Chest x-ray Status: image reviewed by me (negative other than cardiomegaly) - Assessment and Plan (1) Chest pain Current Visit: Yes Status: Acute Assessment and plan: 1. Currently CP free. 2. Will trend troponins and EKG's. 3. Consult cardiology given most recent Cath report recommending further PCI vs CABG. 4. Will provide SL NTG and IV Morphine PRN for chest pain. 5. Continue ASA, Plavix. Qualifiers: Chest pain type: chest pain due to myocardial ischemia Ischemic chest pain type: stable angina pectoris Qualified Code(s): I20.8 - Other forms of angina pectoris (2) Weakness generalized Current Visit: Yes Status: Acute Assessment and plan: 1. Will need PT/OT assessment after cardiac work-up and treatment. (3) Compression fracture Current Visit: Yes Status: Acute Assessment and plan: 1. Currently asymptomatic on exam. 2. May need further work-up and/or treatment after cardiac evaluation. (4) Hypocalcemia Current Visit: Yes Status: Acute Assessment and plan: 1. Replaced by ER staff. 2. Will repeat Ionized calcium level and monitor closely. (5) Hypokalemia Current Visit: Yes Status: Acute Assessment and plan: 1. Replaced per ER staff. 2. Repeat labs and monitor closely. (6) Seizure disorder Current Visit: Yes Status: Chronic Assessment and plan: 1. Resume home dose of Keppra. 2. Seizure precautions. 3. Will order PRN Ativan for seizures. (7) DVT prophylaxis Current Visit: Yes Status: Acute Assessment and plan: 1. Heparin SQ.
[2019-02-19 23:53] LABS: VBG Ionized Calcium 0.68 mmol/L (1.15-1.35)
[2019-02-20] MEDS ORDERED: Calcium Gluconate 2,000 MG in 0.9 % Sodium Chloride 100 ML IVPB ONE ×3 (02:04→21:44)
[2019-02-20 07:46] LABS: Basophils % 0.3 %; Eosinophils # 0.1 K/mcL (0.0-0.6); Eosinophils % 2.2 %; Hematocrit 34.3 % (37.5-50.1); Immature Granulocytes % 0.2 % (0-4); Lymphocytes # 1.5 K/mcL (0.6-4.6); Mean Corpuscular HGB Conc 32.1 g/dL (31.6-35.5); Mean Corpuscular Hemoglobin 27.6 pg (28.0-33.3); Mean Corpuscular Volume 86.2 fL (83.0-100.0); Mean Platelet Volume 9.9 fL (9.4-12.4); Monocytes # 0.6 K/mcL (0.0-1.3); Monocytes % 10.6 %; Neutrophils # 3.5 K/mcL (1.6-8.9); Platelet Count 188 K/mcL (140-400); Red Blood Count 3.98 M/mcL (4.19-5.50); Red Cell Distribution Width 16.1 % (11.5-14.5); Segmented Neutrophils % 60.7 %
[2019-02-20 08:01] LABS: INR 1.2; Prothrombin Time 13.1 Seconds (9.4-12.1)
[2019-02-20 08:02] LABS: Activated Partial Thrombo Time 34.1 Seconds (26.0-36.0)
[2019-02-20 08:13] LABS: Alanine Aminotransferase 23 Units/L (7-52); Albumin 3.4 g/dL (3.5-5.7); Albumin/Globulin Ratio 1.5 (1.1-2.2); Alkaline Phosphatase 112 Units/L (34-104); Aspartate Amino Transferase 34 Units/L (13-39); BUN/Creatinine Ratio 13 (6-26); Bilirubin,Total 0.5 mg/dL (0.3-1.0); Blood Urea Nitrogen 13 mg/dL (8-23); Calcium 5.6 mg/dL (8.6-10.3); Carbon Dioxide 35 mEq/L (23-29); Chloride 102 mEq/L (98-107); Chol/HDL Ratio 2.7 (0-4.9); Cholesterol 139 mg/dL (< 200); Globulin 2.3 g/dL (2.4-3.5); Glucose 83 mg/dL (70-105); HDL Cholesterol 51 mg/dL (40-59); LDL Cholesterol,Calculated 75 mg/dL (0-99); Magnesium 1.5 mg/dL (1.6-2.6); Osmolality,Calculated 299 (280-300); Phosphorous 4.6 mg/dL (2.7-4.5); Potassium 3.1 mEq/L (3.5-5.1); Sodium 145 mEq/L (136-145); Total Protein 5.7 g/dL (6.4-8.9); Triglycerides 67 mg/dL (< 150); eGFR For Non-African Americans > 60 (> 60)
[2019-02-20] MEDS ORDERED: Potassium Chloride 20 MEQ, Lidocaine 1% 2 ML in D5% in Water 250 ML IVPB ONE (08:17)
[2019-02-20] MEDS: Aspirin Enteric Coated 81 MG Tablet PO SCH ×2 (09:20→09:21)
[2019-02-20] MEDS: *HR* Heparin 5,000 UNIT/ML VIAL SQ SCH ×3 (09:20→16:58)
[2019-02-20] MEDS: levETIRAcetam 250 MG TABLET PO SCH ×3 (09:20→20:35)
--- NOTE | 2019-02-20 10:06 | Cardiology Consult Note ---
Date of Encounter: 02/20/19 Time of Encounter: 09:00 Assessment and Plan (1) Chest pain Current Visit: Yes Status: Acute atypical or non-anginal,single episode w/o recurrence. ECG no new finding c/w piror. Trop borderline. - clinical monitoring - c/w CAD and HFrEF management Qualifiers: Chest pain type: chest pain due to myocardial ischemia Ischemic chest pain type: stable angina pectoris Qualified Code(s): I20.8 - Other forms of angina pectoris (2) HFrEF (heart failure with reduced ejection fraction) Current Visit: Yes Status: Acute HFrEF EF 40-45% , NYHA likely II, euvolemia - limited echo for EF - up navdeep to 5 - c/w toprol home dose for now given intermittent bianka - f/u cardiology clinic for uptitration of meds Qualifiers: Heart failure chronicity: chronic Qualified Code(s): I50.22 - Chronic systolic (congestive) heart failure (3) CAD in [place] artery Current Visit: No Status: Chronic LM, LAD and RCA disease. [id number] TG-RCA/RPDA. No angina with baseline limited activity Anatomy: distal LM 60%, pLAD 80% ISR, dLAD 70% ISR, dLAD 50%, LCx nl, dRCA and RPDA 99 - c/w DAPT and lipitor (4) Hypokalemia Current Visit: Yes Status: Acute up lisinopril to 5 (5) Compression fracture Current Visit: Yes Status: Acute Discussion w patient/family: The assessment and plan as outlined above was discussed with the patient and/or family members who expressed understanding and agreement. All questions were answered. Thank you for involving us in the care of your patient. Please call with any questions. History of Present Illness Consult date: 02/20/19 Requesting physician: Andrés Swain Consult reason: cp Chief complaint: cp History of present illness: Mr. David is a 74 year old male ho CAD TG-RCA with distal LM and sig ISR of LAD, HFrEF EF 40-45%, CVA, HTN, HLD, hypothyroidism, seizure. P/w weakness from SNR, subacute L1 compression fracture. Consulted for chest pain. Pt stated only one episode of moderate sharp mid chest pain at rest at home lasting minutes with spontaneous resolution which felt different from prior angina. No recurrence. No chest pain walking after last TG . No syncope, palpitations, dyspnea, LE edema. Semi-sedentary at baseline. ECG SR, early R transition possible old posterior SD, STD ischemia improved c/w [id number] ECG Tele SR 50s-60s Trop 0.04, BNP 98, K2.8 Ca 5.5, TSH 0.028 Pt stated compliant with meds [id number] TTE LVEF 40-45%. Normal LV chamber size and wall thickness. Segmental left ventricular systolic dysfunction. Hypokinesis of inferior and ant/inf septum. Mild left ventricular diastolic dysfunction. Normal right ventricular structure and function. No evidence of pulmonary hypertension. No significant valvular dysfunction. [id number] TG-distal RCA/RPDA. LHC: Severe CAD, severe RCA disease. EF 40%, inferior RWMA, Distal LM 60%, pLAD 80% ISR, dLAD 70% ISR, dLAD 50%, LCx nl, dRCA and RPDA 99(. * Left Main Coronary Artery There is a 60% stenosis in the Distal LMCA. * Left Anterior Descending There is a 80% instent stenosis in the Proximal LAD. There is a 70% instent stenosis of the Distal LAD There is a 50% stenosis in the Distal LAD. * Circumflex The Circumflex is angiographically free of disease. The 1st Marginal is angiographically free of disease. * Right Coronary Artery There is a 16 mm long, 99% stenosis in the Distal RCA. The lesion has a MANISH flow of 3. An intervention was performed on the Distal RCA with a final stenosis of 0%. There were no lesion complications. There is a 12 mm long, 99% stenosis in the Right PDA. The lesion has a MANISH flow of 3. An intervention was performed on the Right PDA with a final stenosis of 100%. There were no lesion complications. The final MANISH flow was 0. Past Med Surg Social Fam HX - Past Medical History Medical history: CVA, hyperlipidemia, hypertension, myocardial infarction, seizures, other Additional medical history: HEART STENTS X 8, ENLARGED PROSTATE, STOMACH ULCERS Psychiatric history: no psych history - Past Surgical History Surgical History: angioplasty/stent, other Additional surgical history: BRAIN SURGERY IN 2006 TO REMOVE BLOOD CLOT, SURGERY ON STOMACH D/T BLEEDING ULCERS - Social History Smoking Status: Former smoker Smokeless Tobacco Status: No Alcohol use: none Drug use: none - Family History Mother Living Status: Hx Family Cardiac Disorders: Yes Father Living Status: Hx Family Cardiac Disorders: Yes Medications and Allergies Donepezil [Aricept] 10 mg PO HS 05/23/18 [History] Omeprazole [PriLOSEC] 20 mg PO DAILY 05/23/18 [History] LevETIRAcetam [Keppra] 1,000 mg PO BID #60 tablet 05/24/18 [Rx] Albuterol Neb [Proventil Neb] 2.5 mg IH TID 07/04/18 [History] Albuterol Sulfate [Ventolin Hfa] 2 puff IH Q6H PRN 07/04/18 [History] Aspirin [Adult Aspirin] 81 mg PO DAILY 07/04/18 [History] Finasteride [Proscar] 5 mg PO DAILY 07/04/18 [History] Fluticasone/Vilanterol [Breo Ellipta 200-25 Mcg INH] 1 puff IH DAILY 07/04/18 [History] Levothyroxine [Synthroid] 175 mcg PO DAILY 07/04/18 [History] Multivit-Min/FA/Lycopen/Lutein [Centrum Silver Men Tablet] 1 tab PO DAILY 07/04/18 [History] Tizanidine HCl 2 mg PO TID 07/04/18 [History] Atorvastatin [Lipitor] 40 mg PO HS #30 tablet 07/10/18 [Rx] Clindamycin [Cleocin] 450 mg PO TIDWM #3 capsule 07/10/18 [Rx] Clopidogrel [Plavix] 75 mg PO DAILY #30 tablet 07/10/18 [Rx] Lisinopril [Zestril] 2.5 mg PO DAILY #15 tablet 07/10/18 [Rx] Metoprolol XL (24 HR) Succ [Toprol Xl] 12.5 mg PO DAILY #30 tab.er.24h 07/10/18 [Rx] Azithromycin [Azithromycin 6-Tab Pack] 250 mg PO PER PKG DI #6 tab 10/08/18 [Rx] Lactose-Reduced Food [Ensure Plus] 1 bottle PO TID #90 can 10/17/18 [Rx] Potassium Chloride [Klor-Con 10] 1 tab PO DAILY #30 tablet.er 11/21/18 [Rx] Allergy/AdvReac Type Severity Reaction Status Date / Time Penicillins [PCN] Allergy Gastrointestinal Verified 11/21/18 15:33 Upset All Systems Review: The remainder of the systems were reviewed and are negative - Cardiovascular Cardiovascular: as per HPI - Hematological/Lymphatic Hematologic/Lymphatic: no easy bleeding Physical Examination Vital Signs, Last 4 Hours Temp Pulse Resp BP Pulse Ox 02/20/19 07:14 98.3 F 50 18 107/69 100 Other: General: NAD, AAO, cogent HEENT: anicteric Neck: no JVD, no bruits Chest: CTA B/L, no W/R/C Heart: RR, S1/S2, no S3/S4, no M/G/R Abdominal: BS +, soft, ND, NT Peripheral Pulses: radial pulse 2+ B/L, DP 2+ B/L Skin/Extremities: no cyanosis, no LE edema Neurological: grossly non-focal. Results 02/20/19 07:04 02/20/19 07:04 Lab Results 02/19/19 02/19/19 02/19/19 16:48 16:48 16:48 WBC Hgb Hct Plt Count INR 1.1 APTT 35.0 Sodium 144 Potassium 2.8 L Chloride 102 Carbon Dioxide 33 H BUN 18 Creatinine 1.00 Glucose 73 Calcium 5.5 L* Magnesium Total Bilirubin AST ALT Alkaline Phosphatase Troponin I B-Natriuretic Peptide 98 Lipase 86 H TSH 02/19/19 02/19/19 02/19/19 16:48 16:48 18:00 WBC 6.1 Hgb 12.3 L Hct 40.3 Plt Count 206 INR APTT Sodium Potassium Chloride Carbon Dioxide BUN Creatinine Glucose Calcium Magnesium 1.8 Total Bilirubin AST ALT Alkaline Phosphatase Troponin I < 0.03 B-Natriuretic Peptide Lipase TSH 0.028 L 02/19/19 02/19/19 02/20/19 22:50 22:50 07:04 WBC 5.8 Hgb 11.0 L Hct 34.3 L Plt Count 188 INR APTT Sodium Potassium 2.9 L Chloride Carbon Dioxide BUN Creatinine Glucose Calcium Magnesium Total Bilirubin AST ALT Alkaline Phosphatase Troponin I < 0.03 B-Natriuretic Peptide Lipase TSH 02/20/19 02/20/19 02/20/19 07:04 07:04 07:04 WBC Hgb Hct Plt Count INR 1.2 APTT 34.1 Sodium 145 Potassium 3.1 L Chloride 102 Carbon Dioxide 35 H BUN 13 Creatinine 0.97 Glucose 83 Calcium 5.6 L* Magnesium 1.5 L Total Bilirubin 0.5 AST 34 ALT 23 Alkaline Phosphatase 112 H Troponin I 0.04 H* B-Natriuretic Peptide Lipase TSH - Imaging and Cardiology Chest Xray: report reviewed Cardiac cath: report reviewed, image reviewed Other Results: Tele reviewed - EKG Interpretation EKG results cardiology: personally reviewed Consult Discharge Plan - Plan Referrals: Dayron Bryant MD [Primary Care Provider] -
[2019-02-20] MEDS ORDERED: NON-FORMULARY MEDICATION 1 EACH EACH (Lactose-Reduced Food [Ensure Plus] 1 BOTTLE) PO SCH (15:00)
--- NOTE | 2019-02-20 15:16 | Event Note ---
Date of Encounter: 02/20/19 Time of Encounter: 15:15 - Cardiology Event Note Mild troponin elevation in the setting of metabolic derrangement. TTE with LVEF preserved, no wall motion abnormalities. Discussed and reviewed with Dr. Larkin, cardiology will sign off. Will arrange outpatient follow up. Consider uptit ration of CHF medications in outpatient setting.
--- NOTE | 2019-02-20 15:40 | Internal Med Progress Note ---
Hospitalist Progress Note - Encounter Date of Encounter: 02/20/19 Time of Encounter: 15:32 - Subjective Interval History: Pt seen and examined at bedside. Resting in bed and denies any chest pain or shortness of breath at this time. He was reported of being agitated overnight due to which bedside sitter was placed. As per sitter, pt has been calm and cooperative all day, will discontinue bedside sitter at this time. Incidental finding of L1 compression fracture was reported on ct abd/pelvis. will obtain MRI for further evaluation. Pt denies any back pain at this time but reports of generalized weakness. Ten point ROS is negative except as listed above. - Exam Vitals: Temp Pulse Resp BP Pulse Ox 98.0 F 68 18 98/61 98 02/20/19 15:07 02/20/19 15:07 02/20/19 15:07 02/20/19 15:07 02/20/19 15:07 Exam: General: No acute distress, AAO x 3, frail appearing elderly male HEENT: EOMI, PERRLA, NC/AT, no scleral icterus Respiratory: Clear to auscultate bilaterally, no wheezing, no rales Cardiovascular: Regular, Rate, Rhythm, No murmurs GI: Soft, Non tender, non distended, normal bowel sounds Ext: No edema, no tenderness, positive pulses Neuro: AAO x 3, no focal deficits - Assessment and Plan (1) Electrolyte abnormality Current Visit: Yes Status: Acute Assessment and Plan: Hypokalemia: K supplemented Hypomagnesemia: Mg supplemented Hypocalcemia: Calcium adjusted to albumin: 6.1, Calcium supplemented will repeat BMP this evening and closely monitor electrolytes and replace as needed (2) Chest pain Current Visit: Yes Status: Acute Assessment and Plan: Cardiology input appreciated no further intervention recommended at this time pt chest pain free at this time continue home medications (3) Compression fracture Current Visit: Yes Status: Acute Assessment and Plan: Incidental acute finding clinically asymptomatic will obtain MRI L spine based on MRI results, will consider spinal surgery evaluation PT/OT evaluation requested (4) Seizure disorder Current Visit: Yes Status: Chronic Assessment and Plan: continue home medications (5) Weakness generalized Current Visit: Yes Status: Acute Assessment and Plan: physical therapy evaluation has been requested (6) DVT prophylaxis Current Visit: Yes Status: Acute Assessment and Plan: heparin SQ - Time Spent with Patient Total time spent is greater than 50% in coordination of care (as documented) at patient's floor/unit and/or counseling patient: 25 - 35 minutes Plan of Care Discussed with: patient (patient/RN/case management) Internal Medicine: Result - Labs CBC & Chem 7: 02/20/19 07:04 02/20/19 07:04 Labs: Short CBC 02/19/19 02/20/19 Range/Units 16:48 07:04 WBC 6.1 5.8 (4.3-11.1) K/mcL Hgb 12.3 L 11.0 L (12.9-16.9) g/dL Hct 40.3 34.3 L (37.5-50.1) % Plt Count 206 188 (140-400) K/mcL Neutrophils # 3.8 3.5 (1.6-8.9) K/mcL BMP 02/19/19 02/19/19 02/20/19 16:48 22:50 07:04 Sodium 144 145 Potassium 2.8 L 2.9 L 3.1 L Chloride 102 102 Carbon Dioxide 33 H 35 H BUN 18 13 Creatinine 1.00 0.97 Glucose 73 83 Calcium 5.5 L* 5.6 L* Cardiac Enzymes 02/19/19 02/19/19 02/20/19 Range/Units 16:48 22:50 07:04 Troponin I < 0.03 < 0.03 0.04 H* (< 0.04) ng/mL Liver Function 02/20/19 Range/Units 07:04 Total Bilirubin 0.5 (0.3-1.0) mg/dL AST 34 (13-39) Units/L ALT 23 (7-52) Units/L Alkaline Phosphatase 112 H (34-104) Units/L Albumin 3.4 L (3.5-5.7) g/dL Urine 02/19/19 Range/Units 18:26 Urine Color Dark Yellow (Yellow) Urine Clarity Clear (Clear) Urine pH 6.0 (5.0-8.0) pH Units Ur Specific [place] 1.026 H (1.010-1.025) Urine Protein 30 H (Neg-Trace) mg/dL Urine Glucose (UA) Normal (Normal) mg/dL - ABG Interpretation ABG results: PT/INR, D-dimer PT 13.1 Seconds (9.4-12.1) H 02/20/19 07:04 - Impressions Impressions Chest X-Ray 02/19/19 16:22 IMPRESSION: Cardiomegaly with no active cardiopulmonary disease demonstrated D/ / Zackery Santacruz MD / Zackery Santacruz MD Interpreting Provider: Zackery Santacruz MD Abdomen/Pelvis CT 02/19/19 16:23 IMPRESSION: A few punctate stones in the kidneys bilaterally. No hydronephrosis. Compression deformity of L1 with loss of approximately 30% vertebral body height. This is new since the previous exam. Some sclerosis suggesting that this may be subacute. This would be better evaluated with MRI if patient has focal pain in this region. D/ / Rosa Phelan MD / Rosa Phelan MD Interpreting Provider: Rosa Phelan MD Head CT 02/19/19 16:23 IMPRESSION: No acute intracranial abnormality. Remote postsurgical sequela is stable. D/ / Roney Nunes / Roney Nunes Interpreting Provider: Roney Nunes Echocardiogram Limited Views 02/20/19 11:05 Impressions: LVEF 60%. Normal LV chamber size, wall thickness and function. Compared to prior reports, LVEF has improved. Left Ventricular Wall Motion: Rest Echo Findings All wall segments showed normal motion. Findings: Study Quality * Technically adequate exam. ECG Findings * Normal sinus rhythm. Left Ventricle * LVEF 60%. * Normal LV chamber size, wall thickness and function. Right Ventricle * Normal right ventricular structure and function. Aorta * Normally sized aortic root. Pericardium * There is a trivial pericardial effusion present. Consult Discharge Plan - Plan Referrals: naldo,Dayron uAstin MD [Primary Care Provider] - (2) Chest pain Qualifiers: Chest pain type: chest pain due to myocardial ischemia Ischemic chest pain type: stable angina pectoris Qualified Code(s): I20.8 - Other forms of angina pectoris
[2019-02-20 16:24] LABS: BUN/Creatinine Ratio 14 (6-26); Blood Urea Nitrogen 13 mg/dL (8-23); Carbon Dioxide 33 mEq/L (23-29); Chloride 103 mEq/L (98-107); Glucose 88 mg/dL (70-105); Osmolality,Calculated 294 (280-300); Potassium 3.3 mEq/L (3.5-5.1); Sodium 142 mEq/L (136-145); eGFR For Non-African Americans > 60 (> 60)
[2019-02-20 16:53] LABS: Magnesium 2.4 mg/dL (1.6-2.6)
--- NOTE | 2019-02-20 18:04 | Electrocardiograph Report ---
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
[2019-02-21] MEDS: *HR* Heparin 5,000 UNIT/ML VIAL SQ SCH ×2 (05:58→18:31)
[2019-02-21 06:31] LABS: Basophils % 0.2 %; Eosinophils # 0.1 K/mcL (0.0-0.6); Hematocrit 32.4 % (37.5-50.1); Hemoglobin 10.2 g/dL (12.9-16.9); Immature Granulocytes % 0.3 % (0-4); Lymphocytes # 1.3 K/mcL (0.6-4.6); Lymphocytes % 20.9 %; Mean Corpuscular HGB Conc 31.5 g/dL (31.6-35.5); Mean Corpuscular Hemoglobin 27.4 pg (28.0-33.3); Mean Corpuscular Volume 87.1 fL (83.0-100.0); Mean Platelet Volume 9.7 fL (9.4-12.4); Monocytes # 0.7 K/mcL (0.0-1.3); Monocytes % 11.2 %; Neutrophils # 4.2 K/mcL (1.6-8.9); Platelet Count 178 K/mcL (140-400); Red Blood Count 3.72 M/mcL (4.19-5.50); Red Cell Distribution Width 16.1 % (11.5-14.5); Segmented Neutrophils % 65.4 %
[2019-02-21 06:59] LABS: BUN/Creatinine Ratio 15 (6-26); Blood Urea Nitrogen 13 mg/dL (8-23); Calcium 6.5 mg/dL (8.6-10.3); Carbon Dioxide 31 mEq/L (23-29); Chloride 100 mEq/L (98-107); Glucose 108 mg/dL (70-105); Magnesium 1.8 mg/dL (1.6-2.6); Osmolality,Calculated 293 (280-300); Phosphorous 4.1 mg/dL (2.7-4.5); Potassium 3.4 mEq/L (3.5-5.1); Sodium 141 mEq/L (136-145); eGFR For Non-African Americans > 60 (> 60)
[2019-02-21] MEDS: levETIRAcetam 250 MG TABLET PO SCH ×2 (10:16→21:12)
[2019-02-21] MEDS: Aspirin Enteric Coated 81 MG Tablet PO SCH (10:16)
[2019-02-21] MEDS: Finasteride 5 MG TABLET PO SCH (10:17)
--- NOTE | 2019-02-21 10:21 | Internal Med Progress Note ---
Hospitalist Progress Note - Encounter Date of Encounter: 02/21/19 Time of Encounter: 10:19 - Subjective Interval History: Pt seen and examined earlier this morning. RN reported that patient complained of chest pain with radiation down the left arm due to which stat troponin and EKG were ordered. During my evaluation, pt denied any chest pain or palpitations. States the pain abruptly resolved. Wishes to return to home however is requiring assistance to get out of bed. Denies any sob, headache at this time. No overnight events reported. Ten point ROS is negative except as listed above - Exam Vitals: Temp Pulse Resp BP Pulse Ox 98.6 F 81 16 150/79 99 02/21/19 07:14 02/21/19 09:08 02/21/19 07:14 02/21/19 09:08 02/21/19 09:08 Exam: General: No acute distress, AAO x 3, frail appearing elderly male HEENT: EOMI, PERRLA, NC/AT, no scleral icterus Respiratory: Clear to auscultate bilaterally, no wheezing, no rales Cardiovascular: Regular, Rate, Rhythm, No murmurs GI: Soft, Non tender, non distended, normal bowel sounds Ext: No edema, no tenderness, positive pulses Neuro: AAO x 3, no focal deficits - Assessment and Plan (1) Electrolyte abnormality Current Visit: Yes Status: Acute Assessment and Plan: Hypokalemia: K supplemented Hypomagnesemia: resolved Hypocalcemia: Calcium adjusted to albumin: 7.0, Calcium supplemented closely monitor electrolytes and replace as needed (2) Chest pain Current Visit: Yes Status: Resolved Assessment and Plan: Cardiology input appreciated no further intervention recommended at this time pt chest pain free at this time continue home medications (3) Compression fracture Current Visit: Yes Status: Acute Assessment and Plan: Incidental acute finding clinically asymptomatic MRI L spine reviewed and discussed results with Dr. Alonso outpatient follow up recommended by Dr. Alonso Pt encouraged to get out of bed to chair with assistance awaiting physical therapy evaluation will initiate discharge planning based on physical therapy evaluation (4) Seizure disorder Current Visit: Yes Status: Chronic Assessment and Plan: continue home medications (5) Weakness generalized Current Visit: Yes Status: Acute Assessment and Plan: physical therapy evaluation has been requested (6) DVT prophylaxis Current Visit: Yes Status: Acute Assessment and Plan: heparin SQ - Time Spent with Patient Total time spent is greater than 50% in coordination of care (as documented) at patient's floor/unit and/or counseling patient: 25 - 35 minutes Plan of Care Discussed with: patient (patient/RN/consulting provider/case management) Internal Medicine: Result - Labs CBC & Chem 7: 02/21/19 06:18 02/21/19 06:18 Labs: Short CBC 02/21/19 Range/Units 06:18 WBC 6.4 (4.3-11.1) K/mcL Hgb 10.2 L (12.9-16.9) g/dL Hct 32.4 L (37.5-50.1) % Plt Count 178 (140-400) K/mcL Neutrophils # 4.2 (1.6-8.9) K/mcL BMP 02/20/19 02/21/19 15:43 06:18 Sodium 142 141 Potassium 3.3 L 3.4 L Chloride 103 100 Carbon Dioxide 33 H 31 H BUN 13 13 Creatinine 0.94 0.86 Glucose 88 108 H Calcium 6.0 L* 6.5 L Cardiac Enzymes 02/21/19 Range/Units 09:24 Troponin I 0.03 (< 0.04) ng/mL - ABG Interpretation ABG results: PT/INR, D-dimer PT 13.1 Seconds (9.4-12.1) H 02/20/19 07:04 - Impressions Impressions Echocardiogram Limited Views 02/20/19 11:05 Impressions: LVEF 60%. Normal LV chamber size, wall thickness and function. Compared to prior reports, LVEF has improved. Left Ventricular Wall Motion: Rest Echo Findings All wall segments showed normal motion. Findings: Study Quality * Technically adequate exam. ECG Findings * Normal sinus rhythm. Left Ventricle * LVEF 60%. * Normal LV chamber size, wall thickness and function. Right Ventricle * Normal right ventricular structure and function. Aorta * Normally sized aortic root. Pericardium * There is a trivial pericardial effusion present. Lumbar Spine MRI 02/20/19 15:30 IMPRESSION: Mild remote compression fracture/Schmorl's node disease L1 vertebral body. No acute fracture. Degenerative disc disease and neural foraminal narrowing at L4-5 and L5-S1. D/ / Ab Hi MD / Ab Hi MD Interpreting Provider: Ab Hi MD Consult Discharge Plan - Plan Referrals: Dayron Bryant MD [Primary Care Provider] - ____ (2) Chest pain Qualifiers: Chest pain type: chest pain due to myocardial ischemia Ischemic chest pain type: stable angina pectoris Qualified Code(s): I20.8 - Other forms of angina pectoris
[2019-02-21] MEDS ORDERED: Calcium Gluconate 2,000 MG in 0.9 % Sodium Chloride 100 ML IVPB ONE (10:22)
--- NOTE | 2019-02-21 17:22 | Electrocardiograph Report ---
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
[2019-02-21 18:28] LABS: BUN/Creatinine Ratio 16 (6-26); Blood Urea Nitrogen 15 mg/dL (8-23); Calcium 7.4 mg/dL (8.6-10.3); Carbon Dioxide 34 mEq/L (23-29); Chloride 100 mEq/L (98-107); Glucose 111 mg/dL (70-105); Osmolality,Calculated 296 (280-300); Potassium 3.4 mEq/L (3.5-5.1); Sodium 142 mEq/L (136-145); eGFR For Non-African Americans > 60 (> 60)
[2019-02-22 03:30] LABS: Basophils % 0.2 %; Eosinophils # 0.1 K/mcL (0.0-0.6); Eosinophils % 1.7 %; Hematocrit 31.5 % (37.5-50.1); Hemoglobin 10.1 g/dL (12.9-16.9); Immature Granulocytes % 0.2 % (0-4); Lymphocytes # 1.6 K/mcL (0.6-4.6); Mean Corpuscular HGB Conc 32.1 g/dL (31.6-35.5); Mean Corpuscular Hemoglobin 27.5 pg (28.0-33.3); Mean Corpuscular Volume 85.8 fL (83.0-100.0); Mean Platelet Volume 9.8 fL (9.4-12.4); Monocytes # 0.7 K/mcL (0.0-1.3); Monocytes % 11.3 %; Neutrophils # 3.9 K/mcL (1.6-8.9); Platelet Count 178 K/mcL (140-400); Red Blood Count 3.67 M/mcL (4.19-5.50); Red Cell Distribution Width 15.9 % (11.5-14.5); Segmented Neutrophils % 61.6 %
[2019-02-22 03:50] LABS: BUN/Creatinine Ratio 17 (6-26); Blood Urea Nitrogen 15 mg/dL (8-23); Calcium 6.8 mg/dL (8.6-10.3); Carbon Dioxide 35 mEq/L (23-29); Chloride 99 mEq/L (98-107); Glucose 101 mg/dL (70-105); Magnesium 1.7 mg/dL (1.6-2.6); Osmolality,Calculated 301 (280-300); Phosphorous 4.3 mg/dL (2.7-4.5); Sodium 145 mEq/L (136-145); eGFR For Non-African Americans > 60 (> 60)
[2019-02-22] MEDS: *HR* Heparin 5,000 UNIT/ML VIAL SQ SCH (05:36)
[2019-02-22] MEDS ORDERED: Calcium Gluconate 2,000 MG in 0.9 % Sodium Chloride 100 ML IVPB ONE (08:31)
[2019-02-22] MEDS: Aspirin Enteric Coated 81 MG Tablet PO SCH (10:08)
[2019-02-22] MEDS: levETIRAcetam 250 MG TABLET PO SCH (10:09)
[2019-02-22] MEDS: Finasteride 5 MG TABLET PO SCH (10:10)
--- NOTE | 2019-02-22 11:32 | Physician Discharge Referral ---
Home Health/Hosp Referral Info Transfer to: Home Health Provider in Charge Post Discharge: PCP - Diagnosis (1) Electrolyte abnormality Priority: Secondary Status: Acute (2) Chest pain Priority: Primary Status: Resolved (3) Compression fracture Priority: Secondary Status: Acute (4) Seizure disorder Priority: Secondary Status: Chronic (5) Weakness generalized Priority: Secondary Status: Acute (6) DVT prophylaxis Priority: Secondary Status: Acute - Respiratory Orders Smoking Cessation: Smoking cessation has been advised. For more information, call the [place] Tobacco Quit Line at 3-100-DXGC-NOW. - Services Needed Following services are medically necessary services: Nursing, Home Health Aide, Physical Therapy, Occupational Therapy - Transfer Medications Home Medications: Donepezil [Aricept] 10 mg PO HS 05/23/18 [History] Omeprazole [PriLOSEC] 20 mg PO DAILY 05/23/18 [History] Albuterol Neb [Proventil Neb] 2.5 mg IH TID 07/04/18 [History] Albuterol Sulfate [Ventolin Hfa] 2 puff IH Q4H PRN 07/04/18 [History] Aspirin [Adult Aspirin] 81 mg PO DAILY 07/04/18 [History] Finasteride [Proscar] 5 mg PO DAILY 07/04/18 [History] Fluticasone/Vilanterol [Breo Ellipta 200-25 Mcg INH] 1 puff IH DAILY 07/04/18 [History] Multivit-Min/FA/Lycopen/Lutein [Centrum Silver Men Tablet] 1 tab PO DAILY 07/04/18 [History] Tizanidine HCl 2 mg PO TID 07/04/18 [History] Clopidogrel [Plavix] 75 mg PO DAILY #30 tablet 07/10/18 [Rx] Lisinopril [Zestril] 2.5 mg PO DAILY #15 tablet 07/10/18 [Rx] Metoprolol XL (24 HR) Succ [Toprol Xl] 12.5 mg PO DAILY #30 tab.er.24h 07/10/18 [Rx] Lactose-Reduced Food [Ensure Plus] 1 bottle PO TID #90 can 10/17/18 [Rx] Potassium Chloride [Klor-Con 10] 1 tab PO DAILY #30 tablet.er 11/21/18 [Rx] Atorvastatin Calcium [Lipitor] 80 mg PO DAILY 02/20/19 [History] LevETIRAcetam [Keppra] 1,000 mg PO BID 02/20/19 [History] Levothyroxine Sodium [Levoxyl] 125 mcg PO QAM 02/20/19 [History] Allergies/Adverse Reactions: Allergy/AdvReac Type Severity Reaction Status Date / Time Penicillins [PCN] Allergy "UPSET Verified 02/20/19 11:33 STOMACH" Certification: Further, I certify that my clinical findings support that this patient is homebound (i.e. absences from home require considerable and taxing effort and are for medical reasons or yazidi services or infrequently or short duration when for other reasons) because: Homebound Reason: Patient requires assistance of a person or device to safely leave home Attestation: My signature below is to certify that this patient is under my care and that I, or nurse practitioner, or a physician's workforce development assistant working with me, has a [id number] encounter with this patient.
[2019-02-22 11:37] VITALS: BP 110/69
--- NOTE | 2019-02-22 11:37 | Discharge Summary ---
- NOTES TO OUTPATIENT PROVIDER Notes to Outpatient Provider: Pt was admitted for chest pain, ACS workup was negative, cardiology recommended outpatient follow up. Pt was also noted to have L1 compression fracture, outpatient follow up with Dr. Alonso is recommended. Orders not resulted at time of discharge: Pending orders 02/22/19 12:00 BMP [Basic Metabolic Panel] Routine 02/22/19 21:00 Troponin I Timed Date of Encounter: 02/22/19 Time of Encounter: 11:32 - Discharge Diagnosis (1) Electrolyte abnormality Priority: Secondary Status: Acute (2) Chest pain Priority: Primary Status: Resolved Qualifiers: Chest pain type: chest pain due to myocardial ischemia Ischemic chest pain type: stable angina pectoris Qualified Code(s): I20.8 - Other forms of angina pectoris (3) Compression fracture Priority: Secondary Status: Acute (4) Seizure disorder Priority: Secondary Status: Chronic (5) Weakness generalized Priority: Secondary Status: Acute (6) DVT prophylaxis Priority: Secondary Status: Acute Hospital course: Mr. David is a 74 year old male with PMH of HTN, CVA with residual cognitive delay, CAD, CHF, HLD, seizure disorder who was admitted for evaluation of chest pain. He was evaluated by cardiology, ACS was ruled out, and outpatient follow up with cardiology was recommended. Pt also reported hx of weight loss due to which ct abd/pelvis was done in the ER, which reported incidental finding of L1 compression fracture. MRI L spine was done. MRI results were discussed with Dr. Alonso(spinal surgery), who recommended outpatient follow up. Pt was also evaluated by physical therapy and home health services were recommended. Pt is currently medically stable for discharge to home with home health. He is chest pain free. He is noted to be hypokalemic today, K was supplemented prior to discharge. Pt was seen and examined on the day of discharge. Discharge discussed with: patient, nurse, case management - Time Spent with Patient Total time spent providing and/or coordinating discharge services: 25 minutes Time spent: Less than 30 minutes - Discharge Medications Prescriptions: Continue Omeprazole [PriLOSEC] 20 mg PO DAILY Donepezil [Aricept] 10 mg PO HS Multivit-Min/FA/Lycopen/Lutein [Centrum Silver Men Tablet] 1 tab PO DAILY Tizanidine HCl 2 mg PO TID Finasteride [Proscar] 5 mg PO DAILY Fluticasone/Vilanterol [Breo Ellipta 200-25 Mcg INH] 1 puff IH DAILY Aspirin [Adult Aspirin] 81 mg PO DAILY Albuterol Sulfate [Ventolin Hfa] 2 puff IH Q4H PRN PRN Reason: Shortness Of Breath Albuterol Neb [Proventil Neb] 2.5 mg IH TID Clopidogrel [Plavix] 75 mg PO DAILY #30 tablet Lisinopril [Zestril] 2.5 mg PO DAILY #15 tablet Metoprolol XL (24 HR) Succ [Toprol Xl] 12.5 mg PO DAILY #30 tab.er.24h Lactose-Reduced Food [Ensure Plus] 1 bottle PO TID #90 can Potassium Chloride [Klor-Con 10] 1 tab PO DAILY #30 tablet.er Atorvastatin Calcium [Lipitor] 80 mg PO DAILY LevETIRAcetam [Keppra] 1,000 mg PO BID Levothyroxine Sodium [Levoxyl] 125 mcg PO QAM Home Medications: Donepezil [Aricept] 10 mg PO HS 05/23/18 [History] Omeprazole [PriLOSEC] 20 mg PO DAILY 05/23/18 [History] Albuterol Neb [Proventil Neb] 2.5 mg IH TID 07/04/18 [History] Albuterol Sulfate [Ventolin Hfa] 2 puff IH Q4H PRN 07/04/18 [History] Aspirin [Adult Aspirin] 81 mg PO DAILY 07/04/18 [History] Finasteride [Proscar] 5 mg PO DAILY 07/04/18 [History] Fluticasone/Vilanterol [Breo Ellipta 200-25 Mcg INH] 1 puff IH DAILY 07/04/18 [History] Multivit-Min/FA/Lycopen/Lutein [Centrum Silver Men Tablet] 1 tab PO DAILY [History] Tizanidine HCl 2 mg PO TID 07/04/18 [History] Clopidogrel [Plavix] 75 mg PO DAILY #30 tablet 07/10/18 [Rx] Lisinopril [Zestril] 2.5 mg PO DAILY #15 tablet 07/10/18 [Rx] Metoprolol XL (24 HR) Succ [Toprol Xl] 12.5 mg PO DAILY #30 tab.er.24h 07/10/18 [Rx] Lactose-Reduced Food [Ensure Plus] 1 bottle PO TID #90 can 10/17/18 [Rx] Potassium Chloride [Klor-Con 10] 1 tab PO DAILY #30 tablet.er 11/21/18 [Rx] Atorvastatin Calcium [Lipitor] 80 mg PO DAILY 02/20/19 [History] LevETIRAcetam [Keppra] 1,000 mg PO BID 02/20/19 [History] Levothyroxine Sodium [Levoxyl] 125 mcg PO QAM 02/20/19 [History] Allergies/Adverse Reactions: Allergy/AdvReac Type Severity Reaction Status Date / Time Penicillins [PCN] Allergy "UPSET Verified 02/20/19 11:33 STOMACH" Date of admission: 02/19/19 22:51 Primary care physician: Dayron Bryant MD Consults: 02/19/19 20:52 Consult to Cardiology [CONS] Stat Comment: Consulting Provider: Cardiology [place] Reason for Consult: recurrent chest pain; S/P PCI of RCA Call Completed: No 02/20/19 14:53 Consult to Case Management [CONS] Routine Comment: Consult to Physical Therapy [CONS] Routine Comment: Evaluate, develop and implement POC Reason for Consult: evaluation for discharge Does patient have active BEDREST order?: No Is patient medically & hemodynamically stable?: Yes Patient assessed for mobility or mobilized this visit?: Yes 02/21/19 08:51 Consult to Physician [CONS] Routine Consulting Provider: Stan Alonso Reason for Consult: L5-S1 moerately severe narrowing of the neural foramina Call Completed: Yes 02/21/19 12:56 Consult to Relief Driller [CONS] Routine Reason for SW Consult: Potential need for placement Discharging clinician: Lizbeth Hawk Anticipated date of discharge: 02/22/19 - Constitutional Vitals: Temp Pulse Resp BP Pulse Ox 97.8 F 58 16 124/71 95 02/22/19 07:05 02/22/19 07:05 02/22/19 07:05 02/22/19 07:05 02/22/19 07:05 General appearance: Present: cooperative, A&O X 3, pleasant, answers questions appropriately Exam: General: No acute distress, AAO x 3, frail appearing elderly male HEENT: EOMI, PERRLA, NC/AT, no scleral icterus Respiratory: Clear to auscultate bilaterally, no wheezing, no rales Cardiovascular: Regular, Rate, Rhythm, No murmurs GI: Soft, Non tender, non distended, normal bowel sounds Ext: No edema, no tenderness, positive pulses Neuro: AAO x 3, no focal deficits - Patient Status Disposition: Home Health Service Condition: Fair Functional capacity at discharge: uses cane/walker - Discharge Instructions Follow Up With: Dayron Bryant MD [Primary Care Provider] - Additional Instructions: Please follow up with your primary care physician within five days after your discharge from the hospital. Please follow up with cardiology within one to two weeks after your discharge from the hospital. please follow up with spinal surgery (Dr. Alonso) within one week after your discharge from the hospital. Please resume all your home medications as prescribed by your primary care physician. Please seek medical help if you have difficulty breathing or if chest pain occurs. - Diet and Activity Activity: as per physical therapy Diet: low fat, low cholesterol, low salt diet
[2019-02-22 13:32] LABS: BUN/Creatinine Ratio 17 (6-26); Blood Urea Nitrogen 14 mg/dL (8-23); Calcium 7.3 mg/dL (8.6-10.3); Carbon Dioxide 32 mEq/L (23-29); Chloride 102 mEq/L (98-107); Glucose 102 mg/dL (70-105); Osmolality,Calculated 297 (280-300); Potassium 3.5 mEq/L (3.5-5.1); Sodium 143 mEq/L (136-145); eGFR For Non-African Americans > 60 (> 60)
== END 2019-02-22 14:11 | disposition home health service (06) | DRG 303 ==
LOC: 3NENU 16:08 → EMEROOARM 16:08 → SUATTDRO 22:51 → OBSVTOIN 22:51 → 3NENU 23:24
PROVIDERS: ADMIT Family Medicine; ATTEND Internal Medicine

== ENCOUNTER 2020-01-14 02:52 | Inpatient (IN) ==
[2020-01-14 04:10] LABS: Bilirubin,Urine Small (Negative); Blood,Urine Negative (Negative); Clarity,Urine Cloudy (Clear); Color,Urine Dark Yellow (Yellow); Glucose,Urine (UA) Normal (Normal); Ketones,Urine Trace mg/dL (Negative); Leukocyte Esterase,Urine Small (Negative); Nitrite,Urine Negative (Negative); PH,Urine 6.5 pH Units (5.0-8.0); Protein,Urine 30 mg/dL (Neg-Trace); Specific Gravity,Urine 1.026 (1.010-1.025)
[2020-01-14 04:13] LABS: Bacteria,Urine None Seen per hpf (None-Few); Hyaline Casts,Urine None Seen per lpf (None-Few); Squamous Epithelial Cell,Urine Many per lpf (None-Few)
[2020-01-14 04:15] LABS: Basophils % 0.1 %; Eosinophils % 0.3 %; Hematocrit 34.5 % (37.5-50.1); Hemoglobin 10.9 g/dL (12.9-16.9); Immature Granulocytes % 0.6 % (0-4); Lymphocytes % 14.4 %; Mean Corpuscular HGB Conc 31.6 g/dL (31.6-35.5); Mean Platelet Volume 8.6 fL (9.4-12.4); Monocytes # 0.6 K/mcL (0.0-1.3); Monocytes % 8.1 %; Neutrophils # 5.2 K/mcL (1.6-8.9); Platelet Count 294 K/mcL (140-400); Red Blood Count 3.63 M/mcL (4.19-5.50); Red Cell Distribution Width 16.8 % (11.5-14.5); Segmented Neutrophils % 76.5 %; White Blood Count 6.8 K/mcL (4.3-11.1)
[2020-01-14 04:19] LABS: INR 1.2; Prothrombin Time 13.9 Seconds (9.4-12.1)
[2020-01-14 04:21] LABS: Activated Partial Thrombo Time 31.4 Seconds (26.0-36.0)
[2020-01-14 04:25] LABS: RBC,Urine 0-3 per hpf (0-3)
[2020-01-14 04:25] LABS: Amphetamine Screen,Urine Negative ng/mL (Cutoff=1000); Barbiturate Screen,Urine Negative ng/mL (Cutoff=200); Benzodiazepines Screen,Urine Negative ng/mL (Cutoff=200); Cannabinoid Screen,Urine Negative ng/mL (Cutoff = 50); Cocaine Screen,Urine Negative ng/mL (Cutoff= 300); Opiate Screen,Urine Negative ng/mL (Cutoff=300); Phencyclidine Screen,Urine Negative ng/mL (Cutoff=25)
[2020-01-14 04:46] LABS: Alanine Aminotransferase 35 Units/L (7-52); Albumin 3.4 g/dL (3.5-5.7); Albumin/Globulin Ratio 1.1 (1.1-2.2); Alkaline Phosphatase 166 Units/L (34-104); Aspartate Amino Transferase 51 Units/L (13-39); BUN/Creatinine Ratio 12 (6-26); Bilirubin,Total 0.7 mg/dL (0.3-1.0); Blood Urea Nitrogen 10 mg/dL (8-23); Calcium 5.1 mg/dL (8.6-10.3); Carbon Dioxide 33 mEq/L (23-29); Chloride 99 mEq/L (98-107); Globulin 3.1 g/dL (2.4-3.5); Glucose 120 mg/dL (70-105); Osmolality,Calculated 290 (280-300); Potassium 2.9 mEq/L (3.5-5.1); Sodium 140 mEq/L (136-145); Total Protein 6.5 g/dL (6.4-8.9); Troponin I < 0.03 ng/mL (< 0.04); eGFR For African Americans > 60 (> 60); eGFR For Non-African Americans > 60 (> 60)
[2020-01-14] MEDS: Calcium Gluconate 1gm/50mL 1 GM/50 ML BAG IVPB SCH ×6 (05:37→14:45)
[2020-01-14 06:08] LABS: Magnesium 1.6 mg/dL (1.6-2.6)
[2020-01-14] MEDS ORDERED: Naloxone 0.4 MG/ML INJ IVP PRN (06:19)
[2020-01-14] MEDS ORDERED: Ringers Solution, Lactated 1,000 ML IVC SCH (06:30)
[2020-01-14 07:21] LABS: VBG Ionized Calcium 0.43 mmol/L (1.15-1.35); VBG PH 7.56 pH Units (7.32-7.42)
[2020-01-14 08:33] LABS: Estimated Average Glucose 117 mg/dl
[2020-01-14 09:42] LABS: Magnesium 1.6 mg/dL (1.6-2.6); Phosphorous 3.5 mg/dL (2.7-4.5)
[2020-01-14 09:55] LABS: Thyroid Stimulating Hormone 34.301 mcIU/mL (0.340-5.600)
[2020-01-14] MEDS: levETIRAcetam 250 MG TABLET PO SCH ×2 (12:02→23:29)
[2020-01-14 12:09] LABS: VBG Ionized Calcium 0.72 mmol/L (1.15-1.35)
[2020-01-14 12:38] LABS: BUN/Creatinine Ratio 13 (6-26); Blood Urea Nitrogen 10 mg/dL (8-23); Carbon Dioxide 31 mEq/L (23-29); Chloride 99 mEq/L (98-107); Glucose 81 mg/dL (70-105); Magnesium 2.2 mg/dL (1.6-2.6); Osmolality,Calculated 286 (280-300); Potassium 3.5 mEq/L (3.5-5.1); Sodium 139 mEq/L (136-145); eGFR For African Americans > 60 (> 60); eGFR For Non-African Americans > 60 (> 60)
[2020-01-14] MEDS ORDERED: Calcium Gluconate 2,000 MG in 0.9 % Sodium Chloride 100 ML IVPB ONE (14:00)
[2020-01-14 18:01] LABS: Adenovirus Not Detected (Not Detect); Bordetella Pertussis Not Detected (Not Detect); Chlamydophila pneumoniae Not Detected (Not Detect); Coronavirus 229E Not Detected (Not Detect); Coronavirus HKU1 Not Detected (Not Detect); Coronavirus NL63 Not Detected (Not Detect); Coronavirus OC43 Not Detected (Not Detect); Human Metapneumovirus Not Detected (Not Detect); Human Rhinovirus/Enterovirus Not Detected (Not Detect); Influenza A Subtype 2009 H1 Not Detected (Not Detect); Influenza B Not Detected (Not Detect); Mycoplasma pneumoniae Not Detected (Not Detect); Parainfluenza Virus 1 Not Detected (Not Detect); Parainfluenza Virus 2 Not Detected (Not Detect); Parainfluenza Virus 3 Not Detected (Not Detect); Parainfluenza Virus 4 Not Detected (Not Detect); Respiratory Syncytial Virus Not Detected (Not Detect)
[2020-01-14] MEDS ORDERED: Perflutren Lipid Microsphere 1.3 ML in 0.9 % Sodium Chloride 8.7 ML IVP ONE (20:11)
[2020-01-15 05:00] LABS: Basophils % 0.1 %; Eosinophils % 0.4 %; Hematocrit 27.4 % (37.5-50.1); Immature Granulocytes % 0.7 % (0-4); Lymphocytes # 1.3 K/mcL (0.6-4.6); Mean Corpuscular HGB Conc 31.8 g/dL (31.6-35.5); Mean Corpuscular Hemoglobin 30.3 pg (28.0-33.3); Mean Corpuscular Volume 95.5 fL (83.0-100.0); Mean Platelet Volume 8.8 fL (9.4-12.4); Monocytes # 0.6 K/mcL (0.0-1.3); Monocytes % 7.2 %; Neutrophils # 5.7 K/mcL (1.6-8.9); Platelet Count 264 K/mcL (140-400); Red Blood Count 2.87 M/mcL (4.19-5.50); Red Cell Distribution Width 16.3 % (11.5-14.5); Segmented Neutrophils % 74.6 %; White Blood Count 7.6 K/mcL (4.3-11.1)
[2020-01-15 05:01] LABS: Hemoglobin 8.7 g/dL (12.9-16.9)
[2020-01-15] MEDS ORDERED: Ipratropium/Albuterol Neb 3 ML IH ONE (05:10)
[2020-01-15 05:33] LABS: BUN/Creatinine Ratio 12 (6-26); Blood Urea Nitrogen 9 mg/dL (8-23); Calcium 6.3 mg/dL (8.6-10.3); Carbon Dioxide 28 mEq/L (23-29); Chloride 99 mEq/L (98-107); Glucose 88 mg/dL (70-105); Osmolality,Calculated 284 (280-300); Potassium 3.3 mEq/L (3.5-5.1); Sodium 138 mEq/L (136-145); eGFR For African Americans > 60 (> 60); eGFR For Non-African Americans > 60 (> 60)
[2020-01-15] MEDS: levETIRAcetam 250 MG TABLET PO SCH ×2 (09:54→23:22)
[2020-01-15] MEDS: Finasteride 5 MG TABLET PO SCH (09:55)
[2020-01-15] MEDS: Aspirin Enteric Coated 81 MG Tablet PO SCH (09:55)
[2020-01-15] MEDS ORDERED: Calcium Gluconate 2,000 MG in 0.9 % Sodium Chloride 100 ML IVPB ONE (11:30)
[2020-01-15] MEDS ORDERED: E-Z-HD (BARIUM SULF) SUSPENSION PO ONE (15:28)
[2020-01-15] MEDS ORDERED: E-Z-PAQUE (BARIUM SULF) SUSP 1 BOTTLE PO ONE (15:28)
[2020-01-15] MEDS: calcitrioL 0.25 MCG CAPSULE PO SCH (16:25)
[2020-01-15] MEDS ORDERED: levETIRAcetam 1,000 MG in 0.9 % Sodium Chloride 100 ML IVPB ONE (23:34)
[2020-01-16] MEDS: Calcium Gluconate 1gm/50mL 1 GM/50 ML BAG IVPB SCH ×2 (00:52→02:50)
[2020-01-16 04:04] LABS: Hematocrit 28.6 % (37.5-50.1); Hemoglobin 9.1 g/dL (12.9-16.9); Mean Corpuscular HGB Conc 31.8 g/dL (31.6-35.5); Mean Corpuscular Hemoglobin 30.4 pg (28.0-33.3); Mean Corpuscular Volume 95.7 fL (83.0-100.0); Mean Platelet Volume 8.6 fL (9.4-12.4); Platelet Count 281 K/mcL (140-400); Red Blood Count 2.99 M/mcL (4.19-5.50); Red Cell Distribution Width 16.4 % (11.5-14.5); White Blood Count 7.7 K/mcL (4.3-11.1)
[2020-01-16 04:23] LABS: BUN/Creatinine Ratio 13 (6-26); Blood Urea Nitrogen 11 mg/dL (8-23); Calcium 7.8 mg/dL (8.6-10.3); Carbon Dioxide 29 mEq/L (23-29); Chloride 102 mEq/L (98-107); Glucose 94 mg/dL (70-105); Osmolality,Calculated 285 (280-300); Potassium 3.3 mEq/L (3.5-5.1); Sodium 138 mEq/L (136-145); eGFR For African Americans > 60 (> 60); eGFR For Non-African Americans > 60 (> 60)
[2020-01-16] MEDS ORDERED: Acetaminophen IV 500 MG/50 ML INFUS..BTL IVPB ONE (06:53)
[2020-01-16] MEDS: Finasteride 5 MG TABLET PO SCH (10:53)
[2020-01-16] MEDS: calcitrioL 0.25 MCG CAPSULE PO SCH (10:54)
[2020-01-16] MEDS: Aspirin Enteric Coated 81 MG Tablet PO SCH (10:54)
[2020-01-16] MEDS: levETIRAcetam 250 MG TABLET PO SCH (18:00)
[2020-01-17] MEDS: levETIRAcetam 250 MG TABLET PO SCH ×2 (05:51→17:58)
[2020-01-17 06:41] LABS: BUN/Creatinine Ratio 15 (6-26); Blood Urea Nitrogen 12 mg/dL (8-23); Calcium 7.2 mg/dL (8.6-10.3); Carbon Dioxide 29 mEq/L (23-29); Chloride 101 mEq/L (98-107); Glucose 75 mg/dL (70-105); Magnesium 1.5 mg/dL (1.6-2.6); Osmolality,Calculated 282 (280-300); Potassium 3.9 mEq/L (3.5-5.1); Sodium 137 mEq/L (136-145); eGFR For African Americans > 60 (> 60); eGFR For Non-African Americans > 60 (> 60)
[2020-01-17] MEDS: Aspirin Enteric Coated 81 MG Tablet PO SCH (09:00)
[2020-01-17] MEDS: Finasteride 5 MG TABLET PO SCH (09:00)
[2020-01-17] MEDS: calcitrioL 0.25 MCG CAPSULE PO SCH (09:08)
[2020-01-18 03:23] LABS: BUN/Creatinine Ratio 17 (6-26); Blood Urea Nitrogen 14 mg/dL (8-23); Carbon Dioxide 29 mEq/L (23-29); Chloride 101 mEq/L (98-107); Glucose 81 mg/dL (70-105); Osmolality,Calculated 284 (280-300); Potassium 3.5 mEq/L (3.5-5.1); Sodium 137 mEq/L (136-145); eGFR For African Americans > 60 (> 60); eGFR For Non-African Americans > 60 (> 60)
[2020-01-18] MEDS: levETIRAcetam 250 MG TABLET PO SCH ×2 (06:24→17:05)
[2020-01-18] MEDS ORDERED: Finasteride 5 MG TABLET PO ONE (09:27)
[2020-01-18] MEDS ORDERED: calcitrioL 0.25 MCG CAPSULE PO ONE (09:27)
[2020-01-18] MEDS ORDERED: Aspirin Enteric Coated 81 MG Tablet PO ONE (09:27)
[2020-01-18] MEDS: Aspirin Enteric Coated 81 MG Tablet PO SCH (17:04)
[2020-01-18] MEDS: Finasteride 5 MG TABLET PO SCH (17:04)
[2020-01-18] MEDS: calcitrioL 0.25 MCG CAPSULE PO SCH (17:05)
[2020-01-19 05:13] LABS: BUN/Creatinine Ratio 19 (6-26); Blood Urea Nitrogen 15 mg/dL (8-23); Calcium 6.9 mg/dL (8.6-10.3); Carbon Dioxide 30 mEq/L (23-29); Chloride 103 mEq/L (98-107); Glucose 78 mg/dL (70-105); Osmolality,Calculated 286 (280-300); Potassium 3.3 mEq/L (3.5-5.1); Sodium 138 mEq/L (136-145); eGFR For African Americans > 60 (> 60); eGFR For Non-African Americans > 60 (> 60)
[2020-01-19] MEDS: levETIRAcetam 250 MG TABLET PO SCH ×2 (06:06→18:30)
[2020-01-19 09:05] LABS: Magnesium 1.5 mg/dL (1.6-2.6)
[2020-01-19] MEDS: Aspirin Enteric Coated 81 MG Tablet PO SCH (09:09)
[2020-01-19] MEDS: calcitrioL 0.25 MCG CAPSULE PO SCH (09:09)
[2020-01-19] MEDS: Finasteride 5 MG TABLET PO SCH (09:10)
[2020-01-19 13:26] LABS: BUN/Creatinine Ratio 22 (6-26); Blood Urea Nitrogen 17 mg/dL (8-23); Carbon Dioxide 32 mEq/L (23-29); Chloride 101 mEq/L (98-107); Glucose 91 mg/dL (70-105); Osmolality,Calculated 289 (280-300); Potassium 3.4 mEq/L (3.5-5.1); Sodium 139 mEq/L (136-145); eGFR For African Americans > 60 (> 60); eGFR For Non-African Americans > 60 (> 60)
[2020-01-20 03:50] LABS: BUN/Creatinine Ratio 18 (6-26); Blood Urea Nitrogen 14 mg/dL (8-23); Calcium 7.2 mg/dL (8.6-10.3); Carbon Dioxide 33 mEq/L (23-29); Chloride 103 mEq/L (98-107); Glucose 86 mg/dL (70-105); Osmolality,Calculated 288 (280-300); Sodium 139 mEq/L (136-145); eGFR For African Americans > 60 (> 60); eGFR For Non-African Americans > 60 (> 60)
[2020-01-20] MEDS: levETIRAcetam 250 MG TABLET PO SCH (06:23)
[2020-01-20 07:06] LABS: Magnesium 1.9 mg/dL (1.6-2.6)
[2020-01-20] MEDS: calcitrioL 0.25 MCG CAPSULE PO SCH (08:31)
[2020-01-20] MEDS: Aspirin Enteric Coated 81 MG Tablet PO SCH (08:31)
[2020-01-20] MEDS: Finasteride 5 MG TABLET PO SCH (08:31)
[2020-01-20 15:35] VITALS: BP 100/60
== END 2020-01-20 17:11 | disposition home health service (06) | DRG 640 ==
LOC: EMEROOARM 02:52 → 2NENU 02:52 → SUATTDRO 05:44 → 2NENU 06:07
PROVIDERS: ADMIT Family Medicine; ATTEND Internal Medicine